=== PATIENT | male | born 1935 | race Caucasian/White ===

== ENCOUNTER → 2016-12-12 | Outpatient (CLI) | payer OTHER ==
--- NOTE | 2016-12-12 17:57 | DX ---
Right ankle, 3 views. HISTORY: Ankle pain x1 month. FINDINGS: Underneath the lateral malleolus, there is a 10 mm bone fragment compatible with prior avul olga lidia injury. There is also a bone fragment underneath the medial malleolus measuring 5 mm in size whi ch also appears remote in age. The mortise is intact, without acute fracture or joint effusion identi fied. Extensive diabetic vascular calcifications involve the posterior tibial and dorsalis pedis shani rosy. IMPRESSION: 1. Sequela prior ankle trauma. 2. Diabetic atherosclerosis.
== END ==
LOC: FIMAGING 11:12
PROVIDERS: ATTEND Surgery
DX: M25.571 Pain in right ankle and joints of right foot (principal); S99.911S Unspecified injury of right ankle, sequela; E11.59 Type 2 diabetes mellitus with other circulatory complications

== ENCOUNTER → 2016-12-17 | Outpatient (CLI) | payer OTHER | LOC: BHFA 13:00 | PROVIDERS: ATTEND Internal Medicine Cardiovascular Disease | DX: I73.9 Peripheral vascular disease, unspecified (principal) ==

== ENCOUNTER → 2017-01-24 | Outpatient (CLI) | payer OTHER ==
[~2017-01-24] MED LIST: IOPAMIDOL (ISOVUE-370) 150 ML BTL IV ONE
[2017-01-24 09:39] LABS: CREATININE 1.1 mg/dL (0.7-1.3); GLOMERULAR FILTRATION RATE > 60
== END ==
LOC: FIMAGING 09:02
PROVIDERS: ATTEND Surgery
DX: I73.9 Peripheral vascular disease, unspecified (principal); I77.4 Celiac artery compression syndrome; I70.1 Atherosclerosis of renal artery; I77.1 Stricture of artery
CPT/HCPCS: 75635; Q9967

== ENCOUNTER → 2017-02-06 | Outpatient (CLI) | payer OTHER | LOC: BHFA 10:00 | PROVIDERS: ATTEND Internal Medicine Cardiovascular Disease | DX: I35.1 Nonrheumatic aortic (valve) insufficiency (principal); I10 Essential (primary) hypertension; I25.10 Atherosclerotic heart disease of native coronary artery without angina pectoris ==

== ENCOUNTER 2017-05-10 09:49 | Day surgery (SDC) | payer OTHER ==
[2017-05-10] MEDS ORDERED: ASPIRIN EC 325 MG TAB PO ONE (09:53)
[2017-05-10] MEDS ORDERED: FAMOTIDINE 20 MG TAB PO ONE (09:53)
[2017-05-10] MEDS ORDERED: DIAZEPAM 5 MG TAB PO ONE (09:53)
[2017-05-10] MEDS ORDERED: diphenhydrAMINE 25 MG CAP PO ONE (09:53)
[2017-05-10] MEDS ORDERED: NS 1,000 ML IV ONE (09:53)
[2017-05-10] MEDS ORDERED: LIDOCAINE 1% 300 MG/30 ML SDV ONE (10:22)
[2017-05-10] MEDS ORDERED: IOPAMIDOL (ISOVUE-370) 150 ML BTL IV ONE (10:22)
[2017-05-10] MEDS ORDERED: MIDAZOLAM 2 MG/2 ML VIAL ONE (10:22)
[2017-05-10] MEDS ORDERED: fentaNYL 100 MCG/2 ML INJ ONE (10:22)
[2017-05-10] MEDS ORDERED: IOPAMIDOL (ISOVUE-300) 150 ML BTL ONE (10:23)
[2017-05-10] MEDS ORDERED: HEPARIN 10,000 UNIT/10 ML MDV ONE (10:27)
[2017-05-10 10:37] LABS: % IMMATURE GRANULYOCYTES 0.2 % (0.0-1.1); ABSOLUTE IMMATURE GRANULOCYTES 0.01 10^3/uL (0.00-0.10); ADD DIFF? NO; ADD MORPH? NO; ADD SCAN? NO; ATYPICAL LYMPHOCYTE FLAG 0 (0-99); FRAGMENT RBC FLAG 0 (0-99); HEMATOCRIT 40.5 % (40.0-51.0); HEMOGLOBIN 13.5 g/dL (13.7-17.5); LEFT SHIFT FLG 0 (0-99); LIPEMIA HEMOLYSIS FLAG 80 (0-99); MEAN CELL HEMOGLOBIN 33.7 pg (27.9-34.1); MEAN CELL HEMOGLOBIN CONCENTR. 33.3 g/dL (32.4-36.7); MEAN PLATELET VOLUME 10.6 fL (8.7-11.7); PLATELET CLUMPS FLAG 0 (0-99); PLATELET COUNT 134 10^3/uL (150-400); RED BLOOD CELL COUNT 4.01 10^6/uL (4.40-6.38); RED CELL DISTRIBUTION WIDTH 14.4 % (11.5-15.2)
[2017-05-10 10:44] LABS: INR 2.39 (0.83-1.16); PROTIME(PATIENT) 26.3 SEC (12.0-15.0)
[2017-05-10 11:13] LABS: ANION GAP 11 mEq/L (8-16); CARBON DIOXIDE 23 mEq/l (22-31); CHLORIDE 108 mEq/L (97-110); CHOLESTEROL 129 mg/dL (140-220); CHOLESTEROL/HDL RATIO 2.58 RATIO (1.00-4.97); GLOMERULAR FILTRATION RATE > 60; GLUCOSE 80 mg/dL (70-100); HIGH DENSITY LIPOPROTEIN 50 mg/dL (40-65); LDL/HDL RATIO 1.32 RATIO (1.00-3.64); LOW DENSITY LIPOPROTEIN 66 mg/dL (80-100); MAGNESIUM 1.7 mg/dL (1.6-2.3); NON-HIGH DENSITY LIPOPROTEIN 79 mg/dL (90-129); SODIUM 142 mEq/L (134-144); TRIGLYCERIDE 66 mg/dL (40-150); VERY LOW DENSITY LIPOPROTEINS 13 mg/dL (8-25)
== END 2017-05-10 11:33 | disposition home or self-care (01) ==
LOC: FCATH 09:49
PROVIDERS: ATTEND Internal Medicine Cardiovascular Disease
DX: R06.00 Dyspnea, unspecified (principal); Z53.09 Procedure and treatment not carried out because of other contraindication; I35.9 Nonrheumatic aortic valve disorder, unspecified; I48.2 Chronic atrial fibrillation; I25.10 Atherosclerotic heart disease of native coronary artery without angina pectoris; I27.2 Other secondary pulmonary hypertension; I10 Essential (primary) hypertension; I73.9 Peripheral vascular disease, unspecified; E78.5 Hyperlipidemia, unspecified; F01.50 Vascular dementia, unspecified severity, without behavioral disturbance, psychotic disturbance, mood disturbance, and anxiety; Z95.810 Presence of automatic (implantable) cardiac defibrillator; Z95.0 Presence of cardiac pacemaker; Z86.73 Personal history of transient ischemic attack (TIA), and cerebral infarction without residual deficits; Z79.899 Other long term (current) drug therapy
CPT/HCPCS: J1644; J2250; J3010; Q9967

== ENCOUNTER 2017-05-13 11:29 | Observation (INO) | payer OTHER ==
[2017-05-13] MEDS ORDERED: ASPIRIN EC 325 MG TAB PO ONE ×2 (11:33→12:06)
[2017-05-13] MEDS ORDERED: NS 1,000 ML IV ONE (11:33)
[2017-05-13] MEDS ORDERED: FAMOTIDINE 20 MG TAB PO ONE (11:33)
[2017-05-13] MEDS ORDERED: DIAZEPAM 5 MG TAB PO ONE (11:33)
[2017-05-13] MEDS ORDERED: diphenhydrAMINE 25 MG CAP PO ONE ×2 (11:33→12:05)
--- NOTE | 2017-05-13 11:55 | CPEKG ---
Heart Rate: 61 RR Interval: 984 QRSD Interval: 162 QT Interval: 528 QTC Interval: 532 QRS Tyrone: -51 T Wave Tyrone: 123 EKG Severity - ABNORMAL ECG - EKG Impression: ATRIAL FIBRILLATION, V-RATE 45-80 EKG Impression: LEFT BUNDLE BRANCH BLOCK Electronically Signed By: Lg Stringer 13-May-2017 17:38:06
[2017-05-13] MEDS ORDERED: FAMOTIDINE 20 MG TAB ONE (12:06)
[2017-05-13] MEDS ORDERED: DIAZEPAM 5 MG TAB ONE (12:06)
[2017-05-13 12:19] LABS: % IMMATURE GRANULYOCYTES 0.6 % (0.0-1.1); ABSOLUTE IMMATURE GRANULOCYTES 0.02 10^3/uL (0.00-0.10); ADD DIFF? NO; ADD MORPH? NO; ADD SCAN? NO; ATYPICAL LYMPHOCYTE FLAG 0 (0-99); FRAGMENT RBC FLAG 0 (0-99); HEMATOCRIT 38.9 % (40.0-51.0); HEMOGLOBIN 12.9 g/dL (13.7-17.5); LEFT SHIFT FLG 0 (0-99); LIPEMIA HEMOLYSIS FLAG 80 (0-99); MEAN CELL HEMOGLOBIN 33.2 pg (27.9-34.1); MEAN CELL HEMOGLOBIN CONCENTR. 33.2 g/dL (32.4-36.7); MEAN CELL VOLUME 100.3 fL (81.5-99.8); MEAN PLATELET VOLUME 11.1 fL (8.7-11.7); PLATELET CLUMPS FLAG 0 (0-99); PLATELET COUNT 135 10^3/uL (150-400); RED BLOOD CELL COUNT 3.88 10^6/uL (4.40-6.38); RED CELL DISTRIBUTION WIDTH 14.3 % (11.5-15.2)
[2017-05-13 12:28] LABS: INR 1.54 (0.83-1.16); PROTIME(PATIENT) 18.5 SEC (12.0-15.0)
[2017-05-13 12:33] LABS: ANION GAP 12 mEq/L (8-16); CALCIUM 9.6 mg/dL (8.5-10.4); CARBON DIOXIDE 21 mEq/l (22-31); CHLORIDE 108 mEq/L (97-110); CHOLESTEROL 115 mg/dL (140-220); CREATININE 0.8 mg/dL (0.7-1.3); GLOMERULAR FILTRATION RATE > 60; GLUCOSE 78 mg/dL (70-100); HIGH DENSITY LIPOPROTEIN 46 mg/dL (40-65); LDL/HDL RATIO 1.26 RATIO (1.00-3.64); LOW DENSITY LIPOPROTEIN 58 mg/dL (80-100); MAGNESIUM 1.7 mg/dL (1.6-2.3); NON-HIGH DENSITY LIPOPROTEIN 69 mg/dL (90-129); POTASSIUM 3.9 mEq/L (3.5-5.2); SODIUM 141 mEq/L (134-144); TRIGLYCERIDE 55 mg/dL (40-150); VERY LOW DENSITY LIPOPROTEINS 11 mg/dL (8-25)
[2017-05-13] MEDS ORDERED: LIDOCAINE 1% 300 MG/30 ML SDV ONE (12:52)
[2017-05-13] MEDS ORDERED: fentaNYL 100 MCG/2 ML INJ ONE (12:52)
[2017-05-13] MEDS ORDERED: MIDAZOLAM 2 MG/2 ML VIAL ONE (12:52)
[2017-05-13] MEDS ORDERED: IOPAMIDOL (ISOVUE-300) 150 ML BTL ONE ×2 (12:53→14:17)
[2017-05-13] MEDS ORDERED: LABETALOL HCL 5 MG/ML 20 ML MDV ONE (14:00)
[2017-05-13] MEDS ORDERED: NITROGLYCERIN 0.4 MG BTL SL PRN (16:01)
[2017-05-13] MEDS ORDERED: ATROPINE SULFATE 1 MG/10 ML SYR IVP PRN (16:01)
[2017-05-13] MEDS ORDERED: HYDROCODONE/APAP 5/325 TAB PO PRN (16:03)
[2017-05-13] MEDS ORDERED: ATORVASTATIN CALCIUM 40 MG TAB PO SCH (18:00)
[2017-05-13] MEDS ORDERED: METOPROLOL TARTRATE 25 MG TAB PO SCH (18:00)
[2017-05-13] MEDS ORDERED: NON-FORMULARY NEW DRUG (Atorvastatin Calcium [Lipitor 80 Mg] 80 MG) PO SCH (18:00)
[2017-05-13] MEDS: FAMOTIDINE 20 MG TAB PO SCH (20:17)
[2017-05-13] MEDS ORDERED: NON-FORMULARY NEW DRUG (Ranitidine Hcl [Ranitidine Hcl 150 Mg] 150 MG) PO SCH (21:00)
[2017-05-13] MEDS ORDERED: DONEPEZIL HCL 5 MG TAB PO SCH (21:00)
[2017-05-13] MEDS ORDERED: ZOLPIDEM TARTRATE 5 MG TAB PO PRN (21:06)
--- NOTE | 2017-05-13 23:30 | CPIP ---
[f rep st] INVASIVE CARDIAC PROCEDURE DATE OF PROCEDURE: 05/13/2017 PROCEDURES PERFORMED: 1. Right heart catheterization. 2. Left heart catheterization. 3. Abdominal aortography with right lower extremity angiography via runoff. 4. Left lower extremity angiography via ipsilateral approach with catheter placed in the left commo n femoral artery. INDICATIONS: 1. Dyspnea on exertion. 2. Moderate aortic stenosis by echocardiography. 3. Known coronary artery disease with a chronic total occlusion of his right coronary artery. 4. Underlying lung disease. 5. Claudication. ACCESS: Patient was prepped and draped in sterile fashion. 1% lidocaine was used to anesthetize th e left inguinal region. A 6-Latvian introducer sheath was placed selectively into the left common fe moral artery via modified Seldinger technique. A 7-Latvian introducer sheath was placed selectively into the left common femoral vein via modified Seldinger technique. RIGHT HEART CATHETERIZATION: The right heart catheter was advanced in the right atrium and pressure obtained. The right atrial pressure was 16 mmHg. The catheter was then advanced into the right ve ntricle and pressure obtained. The right ventricular pressure was 73/10 mmHg. The catheter was the n advanced in the pulmonary artery position and pressure obtained. The pulmonary artery pressure wa s 73/28 mmHg with a mean pulmonary artery pressure of 45 mmHg. The catheter was then advanced in th e wedge position and pressure obtained. The pulmonary capillary wedge pressure was 23 mmHg. The pu lmonary artery saturation was 69%. The femoral artery saturation was 96%. Cardiac output was 4.9 L /minute. Cardiac index 2.6. LEFT VENTRICULOGRAPHY AND CALCULATION OF VALVE AREA: A 6-Latvian JR4 was advanced to the proximal po rtion of the aorta and was used to direct a straight Glidewire across the aortic valve. The right c oronary artery catheter was then advanced into the left ventricle and the straight Glidewire was wit hdrawn. A standard 0.035 wire was then advanced into the left ventricle. The right heart catheter was withdrawn and a Yong pigtail catheter was then advanced and placed into the left ventricle. Images were obtained via power injection through the [facility] system. The left ventricle appeared to be mildly dilated in size with preserved left ventricular systolic function. The estimated ejectio n fraction was 55%. The wjwm-[id number]-[id number] gradient across the aortic valve was 17.19 mmHg. The mean aor tic gradient was 15.52 mmHg. The valve area calculated out at 1.7 cm. CORONARY ANGIOGRAPHY: A 6-Latvian JL4 was advanced to the left main coronary artery and images obtai erik. The left main coronary artery bifurcated into an LAD and circumflex coronary arteries. The le ft main coronary artery was relatively short but appeared normal. The left anterior descending shaun nary artery gave rise to 1 prominent diagonal branch. The left anterior descending coronary artery had mild diffuse disease in the proximal mid segments. There was no stenosis greater than 20%. The first diagonal artery was a moderate-sized vessel. The first diagonal artery had a proximal 20% st enosis present. Circumflex coronary artery was a large vessel, was nondominant. Circumflex coronar y artery was previously stented in the proximal mid segments. The previously placed stents were wid sabi patent with no evidence of in-stent restenosis. The second OM artery had a proximal 40%-60% guille nosis present. A 6-Latvian JR4 was advanced to the right coronary artery and images obtained. The r ight coronary artery was dominant. The right coronary artery was 100% occluded in the midvessel. T he distal right coronary artery was being fed by [id number] collaterals. ABDOMINAL AORTOGRAPHY WITH RUNOFF: A 6-Latvian pigtail catheter was advanced into the distal abdomin al aorta and position verified by angiography. Images were obtained via power injection through the [facility] system. 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 The distal abdominal aorta then bifurcated into the left and right common iliac arteries. The left and right common iliac art eries appeared free of any significant disease. The right common iliac artery then bifurcated into the right internal iliac artery and right external iliac artery. The right internal iliac artery wa s proximally ectatic. The right external iliac artery appeared free of any significant disease. Th e right external iliac artery then turned into the right common femoral artery. The right common fe moral artery had a 20% stenosis and then became aneurysmally dilated. In the aneurysmally dilated s ection, the vessel bifurcated into the profunda femoral artery and superficial femoral artery. The profunda femoral artery appeared free of any significant disease. The superficial femoral artery clifton d proximal sequential 20%-30% stenosis present. The superficial femoral artery then continued to th e mid vessel where it was 100% occluded, at which point, a fem-pop bypass graft could be seen, which was widely patent. Below the knee, images were suboptimal but the patient appeared to have 2-vesse l runoff. LEFT LOWER EXTREMITY ANGIOGRAPHY VIA IPSILATERAL APPROACH WITH CATHETER PLACED IN THE LEFT COMMON FE MORAL ARTERY: The left external iliac artery appeared free of any significant disease. The left ex ternal iliac artery then turned into the left common femoral artery. The left common femoral artery had heavy calcific disease present approaching 50%-70% in severity. The left common femoral artery then bifurcated into the superficial femoral artery and the profunda femoral artery. The profunda femoral artery appeared free of any significant disease. The superficial femoral artery was 100% oc cluded in the mid vessel. A fem-distal graft could be seen. The fem-distal graft was widely patent and tied into the posterior tibial artery. The posterior tibial artery was occluded distal to the graft but did retrograde fill from the graft. COMPLICATIONS: None. CONCLUSIONS: 1. Severe pulmonary hypertension with a mean pulmonary artery pressure of 45 mmHg and a transpulmon rowan gradient of 22 mmHg. 2. Qxda-nc-meuayuez aortic stenosis with a valve area of 1.7 cm and a mean gradient of 15.5 mmHg. 3. One-vessel coronary artery disease involving the right coronary artery. The right coronary shani ry was totally occluded but was noted to be occluded previously. The left anterior descending coron rowan artery and circumflex coronary artery appeared free of any significant disease. 4. Patent fem-pop bypass graft on the right. 5. Patent fem-distal bypass graft on the left. 6. 50%-60% stenosis of the left common femoral artery. 7. Plan is for pulmonary evaluation and medical management. /[id number]/MODL
[2017-05-14] MEDS ORDERED: METOPROLOL TARTRATE 25 MG TAB PO SCH (06:00)
[2017-05-14 07:14] VITALS: BP 182/78; PULSE 96; RESP 18; TEMP 97.8; O2SAT 89
[2017-05-14] MEDS: FAMOTIDINE 20 MG TAB PO SCH (08:32)
[2017-05-14] MEDS ORDERED: CLOPIDOGREL BISULFATE 75 MG TAB PO SCH (09:00)
[2017-05-14] MEDS ORDERED: FERROUS SULFATE 140 MG TAB.ER PO SCH (09:00)
--- NOTE | 2017-05-15 04:22 | GDS ---
[f rep st] DISCHARGE SUMMARY ADMIT DIAGNOSES: 1. Peripheral vascular disease. 2. Claudication. 3. Moderate aortic stenosis by echocardiogram. 4. Coronary artery disease with total right coronary artery occlusion. 5. Underlying lung disease. 6. Dyspnea on exertion. DISCHARGE DIAGNOSES: 1. Peripheral vascular disease. 2. Coronary artery disease. 3. Underlying lung disease. 4. Moderate aortic stenosis. 5. Claudication. 6. Pulmonary hypertension. HOSPITAL COURSE: This gentleman is well known to Dr. Elroy Ramirez who has followed him closely with his peripheral vascular disease over the years. He had been experiencing claudication, especially o f his left leg, along with shortness of breath. Dr. Ramirez recommended a right and left heart cath to evaluate his coronary disease and valvular disease, in addition to abdominal aortography and runo ff, along with left lower extremity angiography to further evaluate the extent of his coronary and v alve disease and his peripheral vascular disease. He was in agreement with this plan due to the inc reasing shortness of breath and severity of his leg discomfort. He was taken to the cardiac cath la b by Dr. Elroy Ramirez. The procedures were done with no complications and he was taken to PCU for ov ernight observation. He did have a left femoral bleed which did respond to FemoStop pressure. He h as no hematoma or ecchymosis to that area. He has been up in the room to the bathroom with no probl ems. At this time, he currently is stable for discharge. ALLERGIES: He has no known allergies. MEDICATIONS: He will go home on Plavix 75 mg daily, ranitidine 150 mg twice daily, metoprolol tartr ate 12.5 mg daily at 6 p.m., metoprolol tartrate 25 mg daily at 6 a.m., ferrous sulfate 140 mg daily , warfarin 2.5 mg Saturday, Saturday, Saturday, Saturday, , and Saturday, 5 mg Saturday, atorvasta tin 80 mg daily, hydrocodone 2 tabs every 4 hours as needed for pain, Aricept 10 mg at bedtime. EXAMINATION: VITAL SIGNS: On day of discharge, blood pressure 158/78, heart rate 104 with atrial f ibrillation, oxygen saturation 94%, temperature 36.5. EKG showed premature ventricular contractions with atrial fibrillation. HEART: Rate irregular with 3+ systolic murmur. LUNG SOUNDS: Clear to auscultation. No wheezes, rales, or rhonchi. EXTREMITIES: Peripheral pulses are 1+ on the right a nd 1+ on the left. INTERVENTIONAL CARDIAC PROCEDURE: Right and left heart catheterization, coronary angiogram, lower l eft extremity angiography. There were no complications. CONCLUSIONS: 1. Severe pulmonary hypertension with a mean pulmonary artery pressure of 45 and transpulmonary gra dient of 22. 2. Mild to moderate aortic stenosis with a valve area of 1.7 cm and a mean gradient of 15.5. 3. One-vessel coronary artery disease involving the right coronary artery which was totally occlude d, but was noted to be occluded previously. Left anterior descending coronary artery and circumflex coronary appeared free of significant disease. 4. Patent fem-pop bypass graft on the right. 5. Patent fem distal bypass graft on the left. 6. 50% to 60% stenosis of the left common femoral artery. 7. Plan is for pulmonary evaluation and medical management. DISCHARGE PLAN: 1. He will follow up with Dr. Ramirez in 1 week. He will see JUAN DIEGO Saunders, at that visit. 2. Groin site instructions and precautions were reviewed and written information was given to him. No heavy lifting, pushing, pulling greater than 10 pounds for 1 week. Okay to use stairs. Should groin site bleed, hold firm pressure and go to the emergency room. Dr. Ramirez would like to refer the patient to Pulmonology to see Priyank Sharma MD, who is a pulmonary h ypertension specialist. He will visit with him further about this at his next appointment. At this time, he currently is stable for discharge. /[id number]/MODL
== END 2017-05-14 12:09 | disposition home or self-care (01) ==
LOC: FCATH 11:29 → F2W 15:30
PROVIDERS: ADMIT Internal Medicine Cardiovascular Disease; ATTEND Internal Medicine Cardiovascular Disease
PROC: B40FYZZ Plain Radiography of Right Lower Extremity Arteries using Other Contrast (ICD-10-PCS; principal; 2017-05-13)
PROC: 4A023N8 Measurement of Cardiac Sampling and Pressure, Bilateral, Percutaneous Approach (ICD-10-PCS; principal; 2017-05-13)
PROC: B400YZZ Plain Radiography of Abdominal Aorta using Other Contrast (ICD-10-PCS; principal; 2017-05-13)
PROC: B40GYZZ Plain Radiography of Left Lower Extremity Arteries using Other Contrast (ICD-10-PCS; principal; 2017-05-13)
DX: I73.9 Peripheral vascular disease, unspecified (principal); I25.10 Atherosclerotic heart disease of native coronary artery without angina pectoris; I35.0 Nonrheumatic aortic (valve) stenosis; J98.4 Other disorders of lung; I27.2 Other secondary pulmonary hypertension
CPT/HCPCS: 75625; 75716; 93005; 93460; C1769; J1644; J2250; J3010; J3490; Q9967

== ENCOUNTER → 2017-07-02 | Outpatient (CLI) | payer OTHER | LOC: FIMAGING 08:43 | PROVIDERS: ATTEND Internal Medicine Critical Care Medicine | DX: I51.7 Cardiomegaly (principal); J90 Pleural effusion, not elsewhere classified; I25.10 Atherosclerotic heart disease of native coronary artery without angina pectoris; R18.8 Other ascites; I27.2 Other secondary pulmonary hypertension ==

== ENCOUNTER 2017-07-31 17:29 | Inpatient (IN) | payer OTHER ==
--- NOTE | 2017-07-31 17:43 | CPEKG ---
Heart Rate: 60 RR Interval: 1000 QRSD Interval: 164 QT Interval: 532 QTC Interval: 532 QRS [place]se[place]: -43 T Wave [place]se[place]: 130 EKG Severity - ABNORMAL ECG - EKG Impression: ATRIAL FIBRILLATION, V-RATE 49-71 EKG Impression: LEFT BUNDLE BRANCH BLOCK Electronically Signed By: Feliciano Ramirez 31-Jul-2017 17:48:09
--- NOTE | 2017-07-31 17:43 | EDPHY ---
H & P Source: Patient Exam Limitations: No limitations - Personal History Tetanus Vaccine Date: WITHIN 10 YRS - Medical/Surgical History Hx Asthma: No Hx Chronic Respiratory Disease: No Hx Diabetes: No Hx Cardiac Disease: Yes Hx Renal Disease: No Hx Cirrhosis: No Hx Alcoholism: No Hx HIV/AIDS: No Hx Splenectomy or Spleen Trauma: No Other PMH: HTN, PPM, Afib, Hyperlipids, bilateral endarectomies, - Social History Smoking Status: Former smoker Time Seen by Provider: 07/31/17 17:34 HPI/ROS: CHIEF COMPLAINT: Syncope, head injury, anticoagulated HISTORY OF PRESENT ILLNESS: The patient has a history of atrial fibrillation and is anticoagulated. He presents to the ED after he had a witnessed syncopal episode at home. He reportedly was standing and loss consciousness. He fell forward striking his head. There was no seizure activity. The patient complains of a mild frontal headache and generalized neck discomfort. He denies any peripheral numbness or weakness. The patient has a history of peripheral vascular disease. He recently underwent an angiogram which demonstrated stable coronary artery disease. The patient denies any history of recent illness, fever, cough or congestion. REVIEW OF SYSTEMS: A comprehensive 10 point review of systems is otherwise negative aside from elements mentioned in the history of present illness. (Feliciano Ramirez) - Physical Exam Exam: General Appearance: Alert, no distress Head: 3 cm linear laceration noted over left eyebrow all, small overlying hematoma Eyes: Pupils equal, round, reactive ENT, Mouth: No hemotympanum, no oral trauma Neck: In cervical spine collar, no palpable step-off, generalized tenderness throughout the cervical spine both midline and paraspinal Respiratory: No chest wall tender, subcutaneous air, lungs clear bilaterally Cardiovascular: Regular rate and rhythm Abdomen: Abdomen is soft and nontender, pelvis stable Skin: No lacerations, No abrasion Back: No midline T/L/S pain Extremities: Nontender, full range of motion Neurological: A&Ox3, normal motor function, normal sensory exam] (Feliciano Ramirez) Constitutional: Initial Vital Signs Temperature (C) 36.9 C 07/31/17 17:42 Heart Rate 63 07/31/17 17:42 Respiratory Rate 16 07/31/17 17:42 Blood Pressure 182/84 H 07/31/17 17:42 O2 Sat (%) 100 07/31/17 17:42 O2 Delivery Mode Room Air Allergies/Adverse Reactions: No Known Allergies Allergy (Verified 07/31/17 17:45) Home Medications: Medication Instructions Recorded Clopidogrel Bisulfate [Plavix (*)] 75 mg PO DAILY 06/25/13 Ranitidine HCl [Ranitidine HCl 150 150 mg PO BID 06/25/13 mg] Atorvastatin Calcium [Lipitor 80 80 mg PO DAILY@18 11/05/16 mg] Ferrous Sulfate [Slow Fe 140 MG 140 mg PO DAILY 11/05/16 (*)] Warfarin Sodium [Coumadin 2.5MG 2.5 mg PO SUMOTUWETHFR@16 11/05/16 (*)] Hydrocodone/APAP 5/325 [Madera 2 tab PO Q4HRS PRN #20 tab 11/10/16 5/325 (*)] Metoprolol Tartrate [Lopressor 25 25 mg PO DAILY@06 #0 tab 11/10/16 mg (*)] Donepezil HCl [Aricept 5 MG (*)] 10 mg PO HS 05/10/17 Warfarin Sodium [Coumadin 5MG (*)] 5 mg PO SA@16 05/10/17 Metoprolol Tartrate [Lopressor 25 12.5 mg PO DAILY@18 #0 tab 05/14/17 mg (*)] Medical Decision Making - Diagnostics EKG Interpretation: EKG: Complete interpretation has been separately recorded in the [facility] archive. Summary impression: AFib, left bundle branch block, rate 60 (Feliciano Ramirez) Imaging Results: Imaging Impressions Cervical Spine CT 07/31/17 17:34 Impression: Head CT: 1. Left frontal scalp hematoma. 2. Comminuted fracture of the nasal bone. 3. No acute intracranial abnormality. 4. Chronic volume loss, diffuse small vessel ischemic changes and focal encephalomalacia in the right parietal and left temporal lobes, similar to prior exam. Cervical Spine: 1. Acute, nondisplaced, posteriorly angulated fracture of the base the dens, likely type II. This results in approximately 2 mm subluxation of the right C1 facet relative to the C2 facet. 2. Small epidural hematoma at the level of C1. 3. Advanced multilevel degenerative changes of the cervical spine. 4. Cannot exclude ligament, spinal cord and/or vascular abnormalities on this exam. Dr. Park discussed these findings by telephone with Feliciano Ramirez at 2016 18:35. Head CT 07/31/17 17:34 Impression: Head CT: 1. Left frontal scalp hematoma. 2. Comminuted fracture of the nasal bone. 3. No acute intracranial abnormality. 4. Chronic volume loss, diffuse small vessel ischemic changes and focal encephalomalacia in the right parietal and left temporal lobes, similar to prior exam. Cervical Spine: 1. Acute, nondisplaced, posteriorly angulated fracture of the base the dens, likely type II. This results in approximately 2 mm subluxation of the right C1 facet relative to the C2 facet. 2. Small epidural hematoma at the level of C1. 3. Advanced multilevel degenerative changes of the cervical spine. 4. Cannot exclude ligament, spinal cord and/or vascular abnormalities on this exam. Dr. Park discussed these findings by telephone with Feliciano Ramirez at 2016 18:35. Procedures: Procedure: Laceration repair with tissue adhesive I was asked by Dr Ramirez to perform wound closure. Verbal consent was obtained from the patient. The 2.5 cm laceration on the frontal region was scrubbed and explored to its base with a gloved finger. No foreign body seen, no foreign bodies palpated. There were no deep structures involved. The wound was repaired with tissue adhesive. The procedure was performed by myself. Patient has been informed that scarring will occur, although every effort has been made to minimize this. (Shania Lacey) ED Course/Re-evaluation: The patient presents to the ED after an episode of syncope. He presents to the ED with head trauma and primary complaints of neck pain. The patient was noted to be neurologically intact upon arrival. The patient was taken for a stat CT scan of his head and cervical spine. There is no evidence of intracranial hemorrhage. The patient does have a fracture of the dens. Consultation was made with Dr. Jain from Neurosurgery who evaluated the patient. The patient will be admitted by Dr. Shanique Vivas from trauma service. The patient's pacemaker call center representative has been requested to come interrogate the pacemaker. The patient was examined by myself several times throughout his stay in the emergency department. He continued to be neurologically intact. The consultation was made with Dr. Klever Leung from the hospitalist service. The patient's head laceration was repaired with Dermabond by the physician orthopedic physician assistant under my supervision. The patient was placed on a monitor throughout his stay in the emergency department without evidence of significant unstable arrhythmia. The patient's pacemaker was interrogated in the emergency department. The pacemaker rep tells me there is no shock given or significant arrhythmia noted. (Feliciano Ramirez) Differential Diagnosis: Differential diagnosis considered includes intracranial hemorrhage, cervical spine fracture, arrhythmia, anemia, spinal cord injury (Feliciano Ramirez) Critical Care Time: Critical care time exclusive of procedures and exclusive of the PA's time was 45 minutes, performed by myself, Feliciano Ramirez MD. The patient presents to the ED with acute syncope characterized by loss of consciousness resulted in a fall and head trauma. The patient is noted to have a C2 fracture on his evaluation. The patient will require admission to the intensive care unit for close observation. Consultation was made with General surgery, Neurosurgery and the Hospital Medicine service. The patient will be admitted to the step- down unit in Intensive Care this evening. (Feliciano Ramirez) - Data Points Laboratory Results: Laboratory Results 07/31/17 17:30 07/31/17 17:30 07/31/17 07/31/17 07/31/17 17:30 17:30 17:30 WBC RBC Hgb Hct MCV MCH MCHC RDW Plt Count MPV Neut % (Auto) Lymph % (Auto) Pope % (Auto) Eos % (Auto) Baso % (Auto) Nucleat RBC Rel Count Absolute Neuts (auto) Absolute Lymphs (auto) Absolute Monos (auto) Absolute Eos (auto) Absolute Basos (auto) Absolute Nucleated RBC Immature Gran % Immature Gran # PT 36.8 SEC H SEC (12.0-15.0) INR 3.64 H (0.83-1.16) Sodium 143 mEq/L mEq/L (134-144) Potassium 3.8 mEq/L mEq/L (3.5-5.2) Chloride 105 mEq/L mEq/L (97-110) Carbon Dioxide 24 mEq/l mEq/l (22-31) Anion Gap 14 mEq/L mEq/L (8-16) BUN 30 mg/dL H mg/dL (7-23) Creatinine 1.0 mg/dL mg/dL (0.7-1.3) Estimated GFR > 60 Glucose 80 mg/dL mg/dL (70-100) Calcium 9.4 mg/dL mg/dL (8.5-10.4) Troponin I 0.055 ng/mL H ng/mL (0.000-0.034) 07/31/17 17:30 WBC 5.18 10^3/uL 10^3/uL (3.80-9.50) RBC 3.80 10^6/uL L 10^6/uL (4.40-6.38) Hgb 12.8 g/dL L g/dL (13.7-17.5) Hct 38.6 % L % (40.0-51.0) MCV 101.6 fL H fL (81.5-99.8) MCH 33.7 pg pg (27.9-34.1) MCHC 33.2 g/dL g/dL (32.4-36.7) RDW 14.5 % % (11.5-15.2) Plt Count 137 10^3/uL L 10^3/uL (150-400) MPV 10.8 fL fL (8.7-11.7) Neut % (Auto) 36.7 % L % (39.3-74.2) Lymph % (Auto) 46.7 % H % (15.0-45.0) Pope % (Auto) 12.7 % % (4.5-13.0) Eos % (Auto) 2.9 % % (0.6-7.6) Baso % (Auto) 0.6 % % (0.3-1.7) Nucleat RBC Rel Count 0.0 % % (0.0-0.2) Absolute Neuts (auto) 1.90 10^3/uL 10^3/uL (1.70-6.50) Absolute Lymphs (auto) 2.42 10^3/uL 10^3/uL (1.00-3.00) Absolute Monos (auto) 0.66 10^3/uL 10^3/uL (0.30-0.80) Absolute Eos (auto) 0.15 10^3/uL 10^3/uL (0.03-0.40) Absolute Basos (auto) 0.03 10^3/uL 10^3/uL (0.02-0.10) Absolute Nucleated RBC 0.00 10^3/uL 10^3/uL (0-0.01) Immature Gran % 0.4 % % (0.0-1.1) Immature Gran # 0.02 10^3/uL 10^3/uL (0.00-0.10) PT INR Sodium Potassium Chloride Carbon Dioxide Anion Gap BUN Creatinine Estimated GFR Glucose Calcium Troponin I Departure - Departure Disposition: [facility] Inpatient Acute Clinical Impression: Syncope, Closed C2 fracture, Forehead laceration, Atrial fibrillation Condition: Fair
[2017-07-31 17:56] LABS: % IMMATURE GRANULYOCYTES 0.4 % (0.0-1.1); ABSOLUTE IMMATURE GRANULOCYTES 0.02 10^3/uL (0.00-0.10); ADD DIFF? NO; ADD MORPH? NO; ADD SCAN? NO; ATYPICAL LYMPHOCYTE FLAG 30 (0-99); FRAGMENT RBC FLAG 0 (0-99); HEMATOCRIT 38.6 % (40.0-51.0); HEMOGLOBIN 12.8 g/dL (13.7-17.5); LEFT SHIFT FLG 0 (0-99); LIPEMIA HEMOLYSIS FLAG 80 (0-99); MEAN CELL HEMOGLOBIN 33.7 pg (27.9-34.1); MEAN CELL HEMOGLOBIN CONCENTR. 33.2 g/dL (32.4-36.7); MEAN CELL VOLUME 101.6 fL (81.5-99.8); MEAN PLATELET VOLUME 10.8 fL (8.7-11.7); PLATELET CLUMPS FLAG 0 (0-99); PLATELET COUNT 137 10^3/uL (150-400); RED CELL DISTRIBUTION WIDTH 14.5 % (11.5-15.2)
[2017-07-31 18:09] LABS: INR 3.64 (0.83-1.16); PROTIME(PATIENT) 36.8 SEC (12.0-15.0)
[2017-07-31 18:16] LABS: ANION GAP 14 mEq/L (8-16); CALCIUM 9.4 mg/dL (8.5-10.4); CARBON DIOXIDE 24 mEq/l (22-31); CHLORIDE 105 mEq/L (97-110); GLOMERULAR FILTRATION RATE > 60; GLUCOSE 80 mg/dL (70-100); POTASSIUM 3.8 mEq/L (3.5-5.2); SODIUM 143 mEq/L (134-144)
[2017-07-31] MEDS ORDERED: NALOXONE HCL 0.4 MG/ML INJ IVP PRN (19:56)
[2017-07-31] MEDS ORDERED: ONDANSETRON 4 MG/2 ML VIAL IVP PRN (19:56)
[2017-07-31] MEDS ORDERED: ACETAMINOPHEN 325 MG TAB PO PRN ×2 (19:56→22:48)
[2017-07-31] MEDS ORDERED: SKIN ADHESIVE (DERMABOND) 1 EACH TP ONE (20:13)
[2017-07-31 20:39] LABS: TROPONIN I 0.055 ng/mL (0.000-0.034)
--- NOTE | 2017-07-31 21:18 | GHP ---
[f rep st] HISTORY AND PHYSICAL DATE OF ADMISSION: 07/31/2017 CHIEF COMPLAINT: Fall. HISTORY OF PRESENT ILLNESS: The patient is a pleasant, 81-year-old man on warfarin who had a syncopal episode at home. He was standing and lost consciousness. He struck his head. He complains of a headache. He is otherwise intact. He had a CT scan performed which showed a left frontal scalp hematoma, comminuted fracture of the nasal bone, and an acute nondisplaced fracture at the base of the dens, likely type 2. Small epidural hematoma at C1. PAST MEDICAL HISTORY: Peripheral vascular disease, aortic stenosis, coronary artery disease, underlying lung disease and dyspnea on exertion, pulmonary hypertension. MEDICATIONS: Reviewed. ALLERGIES: No known drug allergies. FAMILY HISTORY: Noncontributory. SOCIAL HISTORY: He has been 57 years. He quit smoking many years ago. PHYSICAL EXAMINATION: GENERAL: Pleasant, well-nourished man sitting on gurney , at bedside. HEENT: Laceration over the frontal area. Hemostasis achieved with direct pressure. Pupils equal, round, reactive to light and accommodation. No otorrhea. No rhinorrhea. He has dentures. No midface instability. C-collar in place. No clavicular or sternal tenderness. LUNGS: Clear to auscultation bilaterally. CARDIAC: Irregular rate. No peripheral edema. ABDOMEN: Bowel sounds present, soft, nontender. NEURO: 5/5 strength upper and lower extremities. SKIN: He has a skin tear on his right forearm. PSYCHIATRIC: Mood and affect normal. RESULTS: Per HPI. IMPRESSION AND PLAN: An 81-year-old man with atrial fibrillation, lung disease , coronary artery disease, presenting after syncope. He has a possible C2 fracture. Dr. Cherry has evaluated this, he will be in a collar. The hospitalist have also been consulted to assist with his multiple medical problems. Trauma will assess him for any additional injuries. If none are noted, trauma will sign off tomorrow. /[id number]/MODL MTDD
[2017-07-31] MEDS: hydrALAZINE 20 MG/ML VIAL IVP PRN (23:50)
[2017-07-31] MEDS: traZODone 50 MG TAB PO SCH (23:50)
[2017-07-31] MEDS: oxyCODONE IR 5 MG TAB PO PRN (23:50)
[2017-08-01 01:14] LABS: COLOR YELLOW; LEUKOCYTE ESTERASE,URINE NEGATIVE (NEGATIVE); NITRITE,URINE NEGATIVE (NEGATIVE)
[2017-08-01 01:41] LABS: MUCUS TRACE /lpf (NONE-1+); WBC,URINE NONE SEEN /hpf (0-3)
--- NOTE | 2017-08-01 05:09 | GCON ---
[f rep st] CONSULTATION DATE OF CONSULTATION: 07/31/2017 REASON FOR CONSULTATION: I was asked by Dr. Vivas to see the patient in regard to his possible synco pe. HISTORY OF PRESENT ILLNESS: This is an 81-year-old man, who presents after collapsing. He tells me that he was sitting down at his table. He does not believe that he lost consciousness, though he is not sure exactly why he fell. He does recall hitting the floor. He did not have any preceding chest pain, shortness of breath, or palpitations. There was no seizure activity reported. He has a compl icated medical history. He had a left and right heart catheterization about 3 months ago. This show ed some severe pulmonary hypertension, no change in his known coronary artery disease with an occlude d RCA, open LAD and left circ. He was sent to see Dr. Sharma with Pulmonology. I am unclear exactly what was done there, though. Notably, he had his pacemaker interrogated earlier today by Cardiology, and they did make some adjustments. He is not sure exactly what those adjustments were. PAST MEDICAL/SURGICAL HISTORY: 1. History of ventricular tachycardia. 2. Pacemaker, as well as ACD. 3. Bilateral femoral-popliteal bypass. 4. Severe pulmonary hypertension. 5. Hypertension. 6. Hyperlipidemia. 7. Coronary artery disease. 8. History of a CVA. 9. Renal artery stenosis. 10. GI bleed due to an AVM. 11. Moderate aortic stenosis. MEDICATIONS: Please see medication reconciliation. ALLERGIES: No known drug allergies. FAMILY HISTORY: Parents are . SOCIAL HISTORY: He lives with his . He has 4 daughters. He quit smoking. REVIEW OF SYSTEMS: A 10-point review of systems is conducted and is negative except per HPI. PHYSICAL EXAMINATION: VITAL SIGNS: Blood pressure 179/73, heart rate 58, respiration rate 16, satur ating 97% on room air. GENERAL: The patient is a very pleasant man who is resting comfortably in be d. He is holding a paper towel to a bleeding wound on his forehead. HEENT: Shows him to have a wou nd on his forehead. He is wearing a hard neck collar. CARDIOVASCULAR: Irregularly irregular. It i s faint, but I do not appreciate any murmurs, rubs, or gallops. PULMONARY: Shows him to be in no re spiratory distress. Lungs are clear bilaterally from the anterior. ABDOMEN: Soft, nontender, nondi stended. SKIN: Shows no rash. : Shows no Brunson. NEUROLOGIC: Shows him to be alert and oriente d x3. Strength is intact in his upper and lower extremities. Sensation to light touch is intact in his upper and lower extremities. PSYCHIATRIC: Shows normal mood and affect. LABORATORY DATA: Hemoglobin is 12.8. INR is 3.64. BUN is 30. DATA: 1. I discussed this with Dr. Ramirez. Will consult. 2. Head CT shows a hematoma, comminuted fracture of the nasal bone. 3. C-spine shows a small C2 fracture, as well as a small epidural hematoma at the level of C1. 4. ECG, which I personally reviewed and interpreted, shows atrial fibrillation and a left bundle bra nch block. This is unchanged from his prior. IMPRESSION AND PLAN: 81-year-old man presented with fall with serious injuries. 1. Fall versus syncope: His history is not really consistent with syncope, though given the degree of injuries, I am concerned about this. He does have multiple cardiac problems and would suspect a c ardiac source. [facility] has been paged; will come interrogate his pacer. Notably there were some adjustments in his settings made, either yesterday or today. Will trend troponins. I have ordered a n echocardiogram for the morning. I think a Cardiology consult tomorrow would be appropriate. Will monitor him on telemetry. He has multiple cardiac and vascular problems including ventricular tachyc ardia, pacemaker/AICD/coronary artery disease/history of a CVA/renal artery stenosis/femoral-poplitea l bypass, bilateral. 2. C2 fracture: To be managed by Neurosurgery. They have not recommended reversing his INR. He wi ll be followed by Trauma Surgery, as well. 3. Coronary artery disease/peripheral vascular disease: Will defer to Neurosurgery on continuing hi s anticoagulants and Plavix. He is also on a statin. Thank you for involving Hospital Medicine in the care of this patient. We will continue to follow. /[id number]/MODL
[2017-08-01] MEDS: oxyCODONE IR 5 MG TAB PO PRN ×2 (05:37→11:13)
--- NOTE | 2017-08-01 05:44 | GCON ---
[f rep st] CONSULTATION DATE OF CONSULTATION: 07/31/2017 REFERRING PHYSICIAN: Dr. Ramirez ADDITIONAL REFERRING PHYSICIAN: Dr. Vivas. REASON FOR CONSULTATION: Cervical spine fracture. HISTORY OF PRESENT ILLNESS: Patient is an 81-year-old male with a history of peripheral vascular dis ease, aortic stenosis, coronary artery disease, lung disease, pulmonary hypertension, who is on Couma din, who had a syncopal fall at home from standing with a positive loss of consciousness. He did hav e a blow to his head and sustained a left frontal scalp hematoma, comminuted fracture of the nasal cheng ne, and Radiology is calling a type 2 dens fracture with a possible small epidural hematoma at C1. T he patient is complaining of headache but is awake, alert, oriented, has no neurologic complaints oth er than some headache and neck pain. He is in a trauma collar. PAST MEDICAL/SURGICAL HISTORY: Per HPI. Atrial fibrillation. ALLERGIES: No known drug allergies. MEDICATIONS: Anticoagulated on Coumadin. FAMILY HISTORY: Noncontributory as this is a trauma. No recollection of spine fractures in his fami ly. SOCIAL HISTORY: for 57 years. Ex-smoker, quit many years ago. Denies alcohol or drug abuse . REVIEW OF SYSTEMS: Ten points reviewed and negative other than mentioned in HPI. PHYSICAL EXAMINATION: VITAL SIGNS: Blood pressure 201/93, heart rate 69, temperature 36.9, respirat ory rate 16-20, saturating 99% on room air. NEUROLOGIC: Awake, alert, and oriented x3. Appears sta mireya age, in no acute distress. Normal conversant and fluent speech. Normal cranial nerves. 5/5 in all extremities. Normal sensory exam. Normal reflex exam. Gait is deferred. In trauma collar. LABORATORY DATA: White blood cell count 5.18, hemoglobin 12.8, and platelet count 137. INR 3.64. S odium 143, potassium 3.8, BUN and creatinine 30 and 1, glucose 80. Troponin 0.055. IMAGING DATA: Patient's noncontrasted head CT was reviewed. There are no acute findings intracrania lly. Patient's noncontrast CT of the cervical spine reviewed. He has significant cervical spondylos is with small diffuse segments throughout ultimately resulting in fusion from C2 to thoracic spine. He has disk osteophyte stenosis at multiple levels, as well. To my read, he has no acute fractures. IMPRESSION AND PLAN: The patient is an 81-year-old male with multiple medical problems who is antico agulated on warfarin, who had a syncopal fall with loss of consciousness from standing earlier today at his home, is complaining of some headache and neck pain, but is neurologically nonfocal. Radiolog y is calling a type 2 dens fracture, which I do not appreciate on his imaging. Given the fact that garrett salazar does have neck pain, agree he should be in an Brohman or Rhea J collar and should follow up with me in my clinic in 2 weeks with AP and lateral upright x-rays of the cervical spine with an open odontoi d mouth view, as well. Thank you for this consult. /[id number]/MODL
[2017-08-01] MEDS ORDERED: METOPROLOL TARTRATE 25 MG TAB PO SCH ×2 (06:00→18:00)
--- NOTE | 2017-08-01 07:43 | NEUSURGPN ---
Assessment/Plan: 81 y/o male with C2 fracture per radiologist report. -Continue [place] J collar (patient is tolerating this well this morning) -Upright xrays in collar pending -PT/OT -Optimize pain management -Discussed with Dr. Cherry. If upright xrays okay will s/o. Have patient follow up in clinic in 2weeks with AP/lateral/open mouth views of the cervical spine. Subjective: posterior neck pain. Denies any new arm pain, numbness, tingling or weakness. Objective: NAD A&Ox3 MAEx4 5/5 and equal in BUE and BLE. - Physician Discussed Patient with : [facility] Physical Exam - Vitals, I&O, Labs I and O 07/31/17 08/01/17 08/02/17 05:59 05:59 05:59 Intake Total 500 Balance 500 Weight 72.8 kg Intake: Oral (ml) 500 Other: Intake Quantity Yes Sufficient Number of Voids Urinal 1 Vital Signs Temp Pulse Resp BP Pulse Ox 36.8 C 81 16 155/66 H 95 08/01/17 04:00 08/01/17 05:38 08/01/17 04:00 08/01/17 05:38 08/01/17 04:00 ICD10 Worksheet Patient Problems: Problems Problem Status Onset Atrial fibrillation Acute Closed C2 fracture Acute Forehead laceration Acute Syncope Acute Acute ischemic stroke Acute Occlusion of left internal carotid artery Acute PVD (peripheral vascular disease) Acute Ventricular tachycardia Acute
[2017-08-01] MEDS: FUROSEMIDE 20 MG TAB PO SCH (09:37)
[2017-08-01] MEDS: FAMOTIDINE 20 MG TAB PO SCH ×2 (09:37→21:39)
[2017-08-01] MEDS: FENOFIBRATE 145 MG TAB PO SCH (09:37)
[2017-08-01] MEDS: FERROUS SULFATE 140 MG TAB.ER PO SCH (09:37)
--- NOTE | 2017-08-01 11:05 | GCON ---
[f rep st] CONSULTATION CRITICAL CARE CONSULT DATE OF CONSULTATION: 08/01/2017 HISTORY OF PRESENT ILLNESS: The patient is an 81-year-old male, whom I 1st met on 05/15/2017 for gerson luation of pulmonary hypertension. He has a known history of coronary artery disease, atrial fibrill ation, moderate mitral regurgitation and aortic stenosis as well as remote sustained ventricular tach ycardia resulting in an AICD. He recently reported [place] Heart Association class 3-4 symptoms, an d was found to have severe pulmonary hypertension on echocardiogram. He subsequently underwent a rig ht heart catheterization on 05/13/2017, revealing a mean pulmonary artery pressure of 45. Although t he wedge pressure was 23, the pulmonary vascular resistance was 4.49 and the transpulmonary gradient was 22. He was referred originally to me for evaluation of his pulmonary hypertension. He had a smo tod history but no other significant risk factors for pulmonary disease, and was seen in clinic subs equently with pulmonary function tests that were equivocal but did suggest interstitial lung disease. Subsequently he was sent for a high-resolution CT scan that showed pulmonary edema but no ILD. He did have quite a bit of exertional dyspnea the last time I saw him which was on June 25. He has not been back to see me since the CT scan. However, he was admitted yesterday after a syncopal episode at home. He was standing and lost consci ousness, struck his head and resulted in a possible C2 fracture as well as a small epidural hematoma at the level of C1. Trauma was consulted but did not advise any intervention. Neurosurgery was jordan g to evaluate him today. He said that he feels okay, still has significant exertional dyspnea but not much has changed recentl y. REVIEW OF SYSTEMS: Otherwise negative. PAST MEDICAL HISTORY: Includes 1. Aortic stenosis. 2. Mitral regurgitation. 3. Ventricular tachycardia with an AICD placement. 4. Pulmonary hypertension. 5. Hypertension. 6. Hyperlipidemia. 7. Coronary artery disease. 8. Remote stroke. 9. Renal artery stenosis. 10. GI bleed. 11. Peripheral vascular disease. 12. Chronic atrial fibrillation. 13. Carotid artery occlusion. 14. Mild cognitive impairment. 15. Chronic sinusitis. 16. Reflux disease. 17. Iron deficiency anemia. PAST SURGICAL HISTORY: Includes femoral-popliteal bypass, the pacemaker placement, carotid endartere ctomy. SOCIAL HISTORY: He is a former smoker of 2 packs per day for 30 years. Quit in 1979. No significan t alcohol. FAMILY HISTORY: Noncontributory. CURRENT MEDICATIONS: Include Tylenol, Lipitor, Aricept, Pepcid, Tricor, iron sulfate, Lasix, Neuront in, hydralazine, Lopressor, Narcan, Zofran, oxycodone, trazodone. PHYSICAL EXAMINATION: VITAL SIGNS: His blood pressure was 156/63 with a heart rate of 68, respirati ons 14, oxygen saturation 97% on 1 L nasal cannula. GENERAL: He was awake and alert and oriented x3 , in no apparent distress. Able to speak in full sentences without using accessory muscles for breat becky. HEENT: Pupils are equally round, reactive to light. Nonicteric and noninjected. Mucous memb ranes are moist without erythema or exudate. He was wearing a hard C-collar. He had multiple abrasi ons about his face that were mostly small and not bleeding. CHEST: Breath sounds were clear to auscu ltation bilaterally without wheezes, rubs or rales. HEART: Had a somewhat irregular rhythm with a clifton rsh systolic ejection murmur. ABDOMEN: Soft, nontender, nondistended without hepatosplenomegaly. E XTREMITIES: Show no clubbing, cyanosis, or edema. NEUROLOGIC: Nonfocal, including cranial nerves, deep tendon reflexes. SKIN: Warm and dry without evidence of rash. OBJECTIVE DATA: His white count was 5.8, hematocrit 38.6, and platelets 137. His INR was 3.64. Bas ic metabolic panel was unremarkable. Troponin has been negative. UA was also negative. An echocard iogram was done but is pending at this time. ASSESSMENT/PLAN: 1. Syncope. I suspect that this is related to his underlying aortic stenosis which certainly may be worse now. His last echocardiogram that showed moderate aortic stenosis was in January of 2017. Cert ainly his pulmonary hypertension could be a factor here as well but in either case, syncope is a bad sign. A Cardiology consult is pending at this time. He may be a candidate for aortic valve replacem ent, though he does have advanced age and multiple comorbidities. 2. Pulmonary hypertension. I evaluated this thoroughly as an outpatient. Given the information fro m his right heart catheterization, I think his pulmonary hypertension is primarily vascular congestio n related to his left-sided heart disease. He does have known diastolic dysfunction, although this w as not quantified, and severe left atrial enlargement, as well as mitral regurgitation and at least m oderate aortic stenosis. His pulmonary vascular resistance was only 4.49, which is in fact elevated but only mildly so. A mean pulmonary artery pressure of 45 is certainly consistent with severe pulmo nary hypertension, but a trans pulmonary gradient of 22 is by a wedge pressure of 23 at th at time. Typically the transpulmonary gradient greater than 12 is thought to be out of proportion to the left heart disease but that assumes a normal wedge pressure. I think this patient would be a po or candidate for PAH specific therapies that would cause likely pulmonary edema in this setting of di astolic dysfunction and clear cardiac disease. This would also be a reason to consider valve replace ment if he is in fact a candidate for this. We will certainly await Cardiology consult. He is sol jiménez followed by Dr. Ramirez as an outpatient. 3. Abnormal pulmonary function test. His tests were equivocal, though could have been consistent wi th a concomitant restrictive disease but his high-resolution CT scan supported pulmonary edema. It a lso did not show any air trapping so I do not think that chronic obstructive pulmonary disease is an ongoing problem for him. /[id number]/MODL
--- NOTE | 2017-08-01 11:52 | ECHO ---
[id number] + + [id number] : : [place] [id number] : : [phone] + + Adult Echocardiographic Report + ------+ :Name: OLIVIA VARGAS LStudy Date: 08/01/2017 08:30 AM BP: 150/65 mmHg : : Hospital Admission Number: [id number] Naomi n: 244: :: 1935 Gender: Male Height: 71 in : :Age: 81 yrs Race: WH Weight: 157 lb : :Reason For Study: syncope : : BSA: 1.9 meters 2 : :History: syncope : + ------+ MMode/2D Measurements & Calculations IVSd: 1.3 cm RVDd: 3.6 cm FS: 17.8 % Ao root diam: LVPWd: 1.2 cm LVIDd: 4.7 cm EDV(Teich): 3.5 cm LVIDs: 3.8 cm 100.2 ml ESV(Teich): 63.0 ml EF(Teich): 37.1 % LVOT diam: 2.2 cmLVLd ap4: 7.9 cm SV(MOD-sp4): LVOT area: EDV(MOD-sp4): 75.0 ml 3.9 cm2 146.0 ml LVLs ap4: 6.6 cm ESV(MOD-sp4): 71.0 ml EF(MOD-sp4): 51.4 % Normal Measurement Values: + + :LVIDd (3.5-5.7cm) IVSd (0.6-1.1cm) LVPWd (0.6-1.1cm) Aortic Root (2.0-3.7cm)Left Atrium (1.5-4.0cm): :LV Vol(d) (76-115ml) LV Vol(s) (29-48ml) Ejec Fraction (50-65%)PV Carlo (0.6- 1.2m/s) TV Carlo (0.4-1.0m/s) : :MV E Carlo (0.8-1.0m/s)MV A Carlo (0.3-1.0m/s)LVOT Carlo (0.7-1.2m/s) Asc Ao Carlo ( 0.9-1.8m/s) : + + Doppler Measurements & Calculations MV E max carlo: Ao V2 max: LV V1 mean PG: SV(LVOT): 97.2 cm/sec 348.8 cm/sec 1.7 mmHg 80.3 ml MV A max carlo: Ao max P.7 mmHg LV V1 mean: 34.6 cm/sec Ao mean P.4 cm/sec MV E/A: 2.8 34.8 mmHg LV V1 VTI: 20.4 cm MV dec time: 0.21 secAo V2 mean: 288.3 cm/sec Ao V2 VTI: 92.2 cm MACK(I,D): 0.87 cm2 PA V2 max: TR max carlo: 59.2 cm/sec 373.3 cm/sec PA max P.4 mmHg TR max P.7 mmHg RAP systole: 5.0 mmHg RVSP(TR): 60.7 mmHg Left Ventricle The left ventricle is normal in size. There is moderate concentric left ventricular hypertrophy. Left ventricular systolic function is low normal. Ejection Fraction = 50-55%. Abnormal septal motion most likely to secondary to pacemaker. Right Ventricle The right ventricle is normal in size and function. There is a pacemaker lead in the right ventricle. Atria The left atrium is severely dilated. The Left Atrial Volume is 83 ml/m2. The right atrium is moderate to severely dilated. Mitral Valve The mitral valve leaflets appear thickened, but open well. Posterior mitral annular calcification. There is no mitral valve stenosis. There is moderate mitral regurgitation. Tricuspid Valve The tricuspid valve is normal in structure and function. There is no tricuspid stenosis. There is severe tricuspid regurgitation. Right ventricular systolic pressure is 61mmHg. There is Doppler evidence for moderate to severe pulmonary hypertension. Aortic Valve The aortic valve is trileaflet. Severe Aortic Valve Calcification. Moderate to severe valvular aortic stenosis. Mean gradient across the AV 35mmHg and NDSI = .22. Mild aortic regurgitation. Pulmonic Valve The pulmonic valve is not well visualized. Mild pulmonic valvular regurgitation. Great Vessels The aortic root is normal size. Pericardium/Pleural There is no pericardial effusion. Conclusion A two-dimensional transthoracic echocardiogram with M-mode and Doppler was performed. There is moderate concentric left ventricular hypertrophy. Left ventricular systolic function is low normal. Ejection Fraction = 50-55%. Abnormal septal motion most likely to secondary to pacemaker. The left atrium is severely dilated. The Left Atrial Volume is 83 ml/m2. The right atrium is moderate to severely dilated. Posterior mitral annular calcification. There is moderate mitral regurgitation. There is severe tricuspid regurgitation. Right ventricular systolic pressure is 61mmHg. There is Doppler evidence for moderate to severe pulmonary hypertension. Severe Aortic Valve Calcification Moderate to severe valvular aortic stenosis. Mean gradient across the AV 35mmHg and NDSI = .22. Mild aortic regurgitation. Mild pulmonic valvular regurgitation. Final Reading Physician: Josee Padron signed on 08/01/2017 11:50 AM Ordering Physician: Klever Leung Performed By: Kathi Chávez
[2017-08-01] MEDS: hydrALAZINE 20 MG/ML VIAL IVP PRN (12:13)
--- NOTE | 2017-08-01 15:57 | HOSPPROG ---
Hospitalist Progress Note Assessment/Plan: 81 yo M w , pulm htn here w likely cardiac syncope, nasal and dens fx dens fx: hard collar neurosurgery following repeat films : worse by echo i am concerned that this is cause of syncope will have cardiology see would like to dc BB but rapid AF noted AF: continue warfarin and BB pulm htn: 2.2 L heart valvular disease dispo: inpt Subjective: tele: AF (interp by me). case d/w dr grossman Objective: Vital Signs Temp Pulse Resp BP Pulse Ox 36.4 C 78 13 162/68 H 97 08/01/17 15:44 08/01/17 15:44 08/01/17 15:44 08/01/17 15:44 08/01/17 15:44 07/31/17 08/01/17 08/02/17 05:59 05:59 05:59 Intake Total 500 Balance 500 PT 36.8 SEC (12.0-15.0) H 07/31/17 17:30 INR 3.64 (0.83-1.16) H 07/31/17 17:30 - Physical Exam Constitutional: no apparent distress, appears nourished Eyes: PERRL, anicteric sclera Ears, Nose, Mouth, Throat: other (hard collar) Cardiovascular: regular rate and rhythym, no murmur, rub, or gallop, systolic murmur Respiratory: no respiratory distress, no rales or rhonchi, clear to auscultation Gastrointestinal: normoactive bowel sounds Genitourinary: No bentley in urethra Skin: warm, normal color Musculoskeletal: full muscle strength, no muscle tenderness Neurologic: AAOx3 ICD10 Worksheet Patient Problems: Problems Problem Status Onset Atrial fibrillation Acute Closed C2 fracture Acute Forehead laceration Acute Syncope Acute Acute ischemic stroke Acute Occlusion of left internal carotid artery Acute PVD (peripheral vascular disease) Acute Ventricular tachycardia Acute
[2017-08-01] MEDS ORDERED: WARFARIN SODIUM 2.5 MG TAB PO SCH (16:00)
[2017-08-01] MEDS: ATORVASTATIN CALCIUM 40 MG TAB PO SCH (17:33)
[2017-08-01] MEDS: ACETAMINOPHEN 325 MG TAB PO SCH ×2 (17:33→23:04)
[2017-08-01] MEDS: METOPROLOL TARTRATE 25 MG TAB PO SCH (17:34)
--- NOTE | 2017-08-01 18:59 | SOAPPROG ---
SOAP Progress Note Assessment/Plan: Assessment: seen earlier this am for tertiary exam c2 fx stable in cervical brace, ns following nasal fx, will need ent foloow up no new injuries identified syncopal retana ongoing with multiple heart valve abnormalities including mod INR > 3 neuro stable/ chest clear and nontender/ cor rr/ abd soft and nontender extrem ok with decreased pedal pulses Plan:per NS 08/01/17 18:54 Objective: Vital Signs Temp Pulse Resp BP Pulse Ox 36.4 C 72 18 174/65 H 98 08/01/17 15:44 08/01/17 16:44 08/01/17 16:44 08/01/17 16:44 08/01/17 16:44 07/31/17 08/01/17 08/02/17 05:59 05:59 05:59 Intake Total 500 400 Output Total 200 Balance 500 200 PT 36.8 SEC (12.0-15.0) H 07/31/17 17:30 INR 3.64 (0.83-1.16) H 07/31/17 17:30 ICD10 Worksheet Patient Problems: Problems Problem Status Onset Atrial fibrillation Acute Closed C2 fracture Acute Forehead laceration Acute Syncope Acute Acute ischemic stroke Acute Occlusion of left internal carotid artery Acute PVD (peripheral vascular disease) Acute Ventricular tachycardia Acute
--- NOTE | 2017-08-01 20:06 | CPEKG ---
Heart Rate: 70 RR Interval: 857 QRSD Interval: 158 QT Interval: 496 QTC Interval: 536 QRS [place]: -34 T Wave [place]: 141 EKG Severity - ABNORMAL ECG - EKG Impression: ATRIAL FIBRILLATION, V-RATE 50-82 EKG Impression: LEFT BUNDLE BRANCH BLOCK Electronically Signed By: Riya Toledo 02-Aug-2017 21:32:52
[2017-08-01] MEDS ORDERED: LISINOPRIL 5 MG TAB PO ONE (21:18)
[2017-08-01] MEDS: DONEPEZIL HCL 5 MG TAB PO SCH (21:39)
[2017-08-01] MEDS: traZODone 50 MG TAB PO SCH (21:39)
[2017-08-01] MEDS: GABAPENTIN 300 MG CAP PO SCH (21:39)
[2017-08-02 05:29] LABS: INR 3.9 (0.83-1.16); PROTIME(PATIENT) 38.9 SEC (12.0-15.0)
[2017-08-02] MEDS: METOPROLOL TARTRATE 25 MG TAB PO SCH ×3 (05:52→19:18)
[2017-08-02] MEDS: ACETAMINOPHEN 325 MG TAB PO SCH ×4 (06:50→23:44)
[2017-08-02] MEDS: FERROUS SULFATE 140 MG TAB.ER PO SCH (08:19)
[2017-08-02] MEDS: FAMOTIDINE 20 MG TAB PO SCH ×2 (08:20→20:52)
[2017-08-02] MEDS: FUROSEMIDE 20 MG TAB PO SCH (08:20)
[2017-08-02] MEDS: oxyCODONE IR 5 MG TAB PO PRN ×3 (08:21→20:52)
[2017-08-02] MEDS: FENOFIBRATE 145 MG TAB PO SCH (08:21)
--- NOTE | 2017-08-02 08:45 | TRAUMAPN ---
Assessment/Plan: 81yo M s/p fall c C spine fx, ?C1 EDH. - Examination remains non-focal this AM and his pain is well controlled. He remains in his collar per NSG. Discussed with NSG his poss C1 EDH and further treatment needed. SBP remains elevated in light of underlying . Patient back on all home anticoag. Patient still receiving syncopal w/y, Trauma service to s/ o. Call with questions Subjective: Doing well, has no complaints. Objective: Vital Signs Temp Pulse Resp BP Pulse Ox 36.9 C 61 15 133/58 H 99 08/02/17 04:00 08/02/17 04:00 08/02/17 04:00 08/02/17 04:00 08/02/17 04:00 08/01/17 08/02/17 08/03/17 05:59 05:59 05:59 Intake Total 500 800 Output Total 650 Balance 500 150 PT 38.9 SEC (12.0-15.0) H 08/02/17 05:10 INR 3.90 (0.83-1.16) H 08/02/17 05:10
[2017-08-02] MEDS: CLOPIDOGREL BISULFATE 75 MG TAB PO SCH (10:43)
--- NOTE | 2017-08-02 13:06 | PDCARCONS ---
Cardiology Consult Reason for Consult: Syncope Chief Complaint: Broken neck Requesting Physician: Danilo History of Present Illness: 81-year-old male well known to our service cared for by my partner Elroy Ramirez, history of coronary disease with known occlusion of the right coronary artery status post recent coronary angiogram, history of chronic atrial fibrillation with a left atrial clot chronically anticoagulated with a rate control strategy , history of ventricular tachycardia with a [employer] Chris ICD placed in 2014 , history of severe peripheral vascular disease status post multiple intervention with carotid artery occlusion, history of severe pulmonary hypertension with a transpulmonary gradient of 22 mm of mercury and recent peak gradient of over 70 mm of mercury, history of progressive dementia over the last 12 months likely secondary to vascular disease admitted to the hospital with sudden loss of consciousness resulting in fracture of his neck and contusions of the face. Patient did not report palpitations prior to the event. He had no chest pain or shortness of breath prior to the event. He awoke promptly. He had no loss of bowel or bladder. He had no seizure activity. It was witnessed by his . He has been admitted to the hospital on telemetry monitoring. He did not receive an ICD shock as best he can tell. He has had no dysrhythmia on monitor here. On my arrival he has no cardiovascular complaints. He clearly is confabulating deferring to his during conversation making his history unreliable. Patient was last seen in the office July 12. At that time he had mild peripheral edema and was started on low-dose Lasix. His claudication was stable. He was being evaluated by Pulmonary Medicine for etiology of primary pulmonary hypertension and some consideration was being made to start him on vaso dilator therapy. History Information - Allergies/Home Medication List Allergies/Adverse Reactions: No Known Allergies Allergy (Verified 07/31/17 17:45) Home Medications: Clopidogrel Bisulfate [Plavix (*)] 75 mg PO DAILY 06/25/13 [Last Taken 07/31/17] Ranitidine HCl [Ranitidine HCl 150 mg] 150 mg PO BID 06/25/13 [Last Taken ] Atorvastatin Calcium [Lipitor 80 mg] 80 mg PO DAILY@18 11/05/16 [Last Taken 04/10] Ferrous Sulfate [Slow Fe 140 MG (*)] 140 mg PO DAILY 11/05/16 [Last Taken ] Warfarin Sodium [Coumadin 2.5MG (*)] 2.5 mg PO SUMOTUWETHFR@16 11/05/16 [Last Taken 07/31/17] Donepezil HCl [Aricept 5 MG (*)] 5 mg PO HS 05/10/17 [Last Taken 07/30/17] Warfarin Sodium [Coumadin 5MG (*)] 5 mg PO SA@16 05/10/17 [Last Taken 07/27/17] Acetaminophen [Tylenol 325mg (*)] 325 mg PO DAILY PRN 07/31/17 [Last Taken Unknown] Fenofibrate [Tricor 145 mg (*)] 145 mg PO DAILY 07/31/17 [Last Taken 07/31/17] Furosemide [Lasix 20 MG (*)] 20 mg PO DAILY 07/31/17 [Last Taken 07/31/17] Gabapentin [Neurontin 300 MG (*)] 300 mg PO HS 07/31/17 [Last Taken 07/30/17] I have personally reviewed and updated: medical history, social history, surgical history Past Medical History: - Past Medical History atrial fibrillation, coronary artery disease, dementia, hypertension, hyperlipidemia, peripheral artery disease, TIA - Surgical History Reports: vascular surgery - Family History Positive for: non-pertinent - Social History Smoking Status: Former smoker Physical Exam Physical Exam: Temp Pulse Resp BP Pulse Ox 36.6 C 95 13 172/58 H 100 08/02/17 11:51 08/02/17 12:00 08/02/17 11:51 08/02/17 12:00 08/02/17 11:51 O2 (L/minute) 1 Constitutional: no apparent distress, appears nourished, not in pain, other Eyes: anicteric sclera Ears, Nose, Mouth, Throat: moist mucous membranes Cardiovascular: regular rate and rhythym, systolic murmur, No JVD Respiratory: no respiratory distress, no rales or rhonchi, clear to auscultation Gastrointestinal: normoactive bowel sounds, soft, non-tender abdomen Genitourinary: no bladder fullness Skin: warm, other (Contusions of the face) Musculoskeletal: other (Sitting in chair with cervical collar in place) Psychiatric: poor insight Lymph, Heme, Immunologic: no cervical LAD, no supraclavicular LAD Lab and Imaging 07/31/17 17:30 07/31/17 17:30 WBC 5.18 10^3/uL (3.80-9.50) 07/31/17 17:30 RBC 3.80 10^6/uL (4.40-6.38) L 07/31/17 17:30 Hgb 12.8 g/dL (13.7-17.5) L 07/31/17 17:30 Hct 38.6 % (40.0-51.0) L 07/31/17 17:30 MCV 101.6 fL (81.5-99.8) H 07/31/17 17:30 MCH 33.7 pg (27.9-34.1) 07/31/17 17:30 MCHC 33.2 g/dL (32.4-36.7) 07/31/17 17:30 RDW 14.5 % (11.5-15.2) 07/31/17 17:30 Plt Count 137 10^3/uL (150-400) L 07/31/17 17:30 MPV 10.8 fL (8.7-11.7) 07/31/17 17:30 Neut % (Auto) 36.7 % (39.3-74.2) L 07/31/17 17:30 Lymph % (Auto) 46.7 % (15.0-45.0) H 07/31/17 17:30 [place] % (Auto) 12.7 % (4.5-13.0) 07/31/17 17:30 Eos % (Auto) 2.9 % (0.6-7.6) 07/31/17 17:30 Baso % (Auto) 0.6 % (0.3-1.7) 07/31/17 17:30 Nucleat RBC Rel Count 0.0 % (0.0-0.2) 07/31/17 17:30 Absolute Neuts (auto) 1.90 10^3/uL (1.70-6.50) 07/31/17 17:30 Absolute Lymphs (auto) 2.42 10^3/uL (1.00-3.00) 07/31/17 17:30 Absolute Monos (auto) 0.66 10^3/uL (0.30-0.80) 07/31/17 17:30 Absolute Eos (auto) 0.15 10^3/uL (0.03-0.40) 07/31/17 17:30 Absolute Basos (auto) 0.03 10^3/uL (0.02-0.10) 07/31/17 17:30 Absolute Nucleated RBC 0.00 10^3/uL (0-0.01) 07/31/17 17:30 Immature Gran % 0.4 % (0.0-1.1) 07/31/17 17:30 Immature Gran # 0.02 10^3/uL (0.00-0.10) 07/31/17 17:30 PT 38.9 SEC (12.0-15.0) H 08/02/17 05:10 INR 3.90 (0.83-1.16) H 08/02/17 05:10 Sodium 143 mEq/L (134-144) 07/31/17 17:30 Potassium 3.8 mEq/L (3.5-5.2) 07/31/17 17:30 Chloride 105 mEq/L (97-110) 07/31/17 17:30 Carbon Dioxide 24 mEq/l (22-31) 07/31/17 17:30 Anion Gap 14 mEq/L (8-16) 07/31/17 17:30 BUN 30 mg/dL (7-23) H 07/31/17 17:30 Creatinine 1.0 mg/dL (0.7-1.3) 07/31/17 17:30 Estimated GFR > 60 07/31/17 17:30 Glucose 80 mg/dL (70-100) 07/31/17 17:30 Calcium 9.4 mg/dL (8.5-10.4) 07/31/17 17:30 Troponin I 0.043 ng/mL (0.000-0.034) H 08/01/17 12:30 Urine Color YELLOW 08/01/17 00:25 Urine Appearance CLEAR 08/01/17 00:25 Urine pH 6.0 (5.0-7.5) 08/01/17 00:25 Ur Specific [place] 1.015 (1.002-1.030) 08/01/17 00:25 Urine Protein NEGATIVE (NEGATIVE) 08/01/17 00:25 Urine Ketones NEGATIVE (NEGATIVE) 08/01/17 00:25 Urine Blood 1+ (NEGATIVE) H 08/01/17 00:25 Urine Nitrate NEGATIVE (NEGATIVE) 08/01/17 00:25 Urine Bilirubin NEGATIVE (NEGATIVE) 08/01/17 00:25 Urine Urobilinogen NEGATIVE EU (0.2-1.0) 08/01/17 00:25 Ur Leukocyte Esterase NEGATIVE (NEGATIVE) 08/01/17 00:25 Urine RBC 5-10 /hpf (0-3) H 08/01/17 00:25 Urine WBC NONE SEEN /hpf (0-3) 08/01/17 00:25 Ur Epithelial Cells TRACE /lpf (NONE-1+) 08/01/17 00:25 Hyaline Casts 1-5 /lpf (0-1) 08/01/17 00:25 Urine Mucus TRACE /lpf (NONE-1+) 08/01/17 00:25 Urine Glucose NEGATIVE (NEGATIVE) 08/01/17 00:25 Visualized and Interpreted Chest x-ray results: No EKG Interpretation: Positive for: left bundle branch block, other (Atrial fibrillation) Echocardiogram: Echocardiogram showed no pericardial effusion. Pulmonary hypertension persists. Moderate aortic stenosis with a peak gradient of 52 mm of mercury by Doppler. Normal left ventricular systolic function. A/P Assessment: Problem list: 1. Cardiac syncope. 2. Moderate aortic stenosis unchanged from previous evaluation. 3. Coronary artery disease with occluded right coronary artery status post cardiac catheterization this year. 4. Ventricular tachycardia with functioning ICD. 5. Atrial fibrillation with chronic rate control and chronic anticoagulation. ( Chronic anticoagulation complicated in the past by GI bleeding) not being on anticoagulation complicated by left atrial thrombus. 6. Vascular dementia. with TIA 7. Peripheral vascular disease status post endarterectomy, multiple interventions. 8. Hypertension. 9. Hyperlipidemia. Discussion: Clinical history very concerning for true cardiac syncope with abrupt onset leading to significant trauma. Differential diagnosis would include ventricular arrhythmia requiring therapy versus complex valvular heart disease versus severe pulmonary hypertension. Based on echocardiography, current data available, I feel this is likely secondary to severe pulmonary hypertension. His atrial fibrillation appears to be well rate controlled. He is appropriately anticoagulated. Does not have unstable angina by clinical history or EKG with recent diagnostic angiogram doubt significant progression in that time frame. At this point will plan to interrogate his ICD to determine if this was a ventricular arrhythmia that required therapy. If so, would consider addition of antiarrhythmic drug. All drugs in his case would have significant risk. This would have to be discussed further if this were the clinical path we were to follow. Based on his echocardiogram this does not seem to be progression of his aortic valve disease has remains moderate. This was evaluated by cardiac catheterization recently. He is not a candidate for surgery at this time. I do not think this represents a neurologic process based on clinical history. History was also not consistent with an orthostatic or vagal etiology. Overall prognosis remains poor. Will await results of device interrogation before making more recommendations. In the short term would continue current medical therapy as previously ordered. I have discussed the case with the patient's and Dr. Ramirez. Plan: Interrogate device. Telemetry monitoring. Review of Systems Review of Systems: - Review of Systems Constitutional: denies: chills, fever EENTM: no symptoms reported Respiratory: no symptoms reported Cardiac: no symptoms reported Gastrointestinal/Abdominal: no symptoms reported Genitourinary: no symptoms Musculoskelatal: no symptoms Skin: no symptoms Neurological: no symptoms Hematologic/Lymphatic: no symptoms reported Immunologic/allergic: no symptoms reported Past Medical History PMH: - Personal History Tetanus Vaccine Date: WITHIN 10 YRS - Medical/Surgical History Hx Asthma: No Hx Chronic Respiratory Disease: No Hx Cardiac Disease: Yes Hx Diabetes: No Hx Renal Disease: No Hx Alcoholism: No Hx Cirrhosis: No Hx HIV/AIDS: No Hx Splenectomy or Spleen Trauma: No Other PMH: HTN, PPM, Afib, Hyperlipids, bilateral endarectomies,tonillectomy, angiogram - Social History Smoking Status: Former smoker Additional Social History:
--- NOTE | 2017-08-02 14:30 | PDINTPN ---
Folding Machine Feeder Progress Note Assessment/Plan: Assessment/plan: 81 M known to me from outpatient workup for severe pulmonary hypertension. He was admitted 07/31/17 after a syncopal episode resulting in a possible C@ fracture , small epidural hematoma and nasal fractures- all managed conservatively including a [place] J collar but no surgery. * Pulmonary hypertension- He has multiple cardiac etiologies including at least moderate aortic stenosis (if not mod-severe), moderate MR, atrial fibrillation, and remote sustained VT requiring an AICD. His diastolic function is unknown, but likely plays a role given his advanced age. On his echos (both now and on ) he has severe LAE, and on his RHC of 05/11/17 had a PCW of 23. I suspect his PH is the result of well-documented left heart disease, and in the setting of portends a poor prognosis and elevated mortality. Confounding this picture has been moderate to severe that appears relatively stable over the last 6 months, though his mean gradient by echo has increased from 27 to 35. His MACK on cath is markedly discordant with his echo- 1.7 cm2 vs 0.6-0.8 on echo , though cath is considered the gold standard. In general, AVR for with PH has a high mortal;ity, but benefits probably outweigh the risks since PH and NYHA functional class are known to improve. A TAVR would clearly be favored over open AVR should he qualify. I am not in favor of PAH specific medical therapy in this patient (eg ETA antagonists, PDE inhibitors, PG analogues, or guanylate cyclase stimulators) for fear of instigating severe pulmonary edema, or, even if he had COPD, worsening VQ mismatch and hypoxemia. An alternative to TAVR might include maximizing medical therapy directed at - such as diuretics and BP control including ADAM inhibitors. Will defer to cards for that and consider at least eval by CT surgery for TAVR. * PH work-up : He has a remote smoking history but PFTs showed clearly restrictive spirometry (FEV1/FVC= 82, with FVC= 60% and FEV1= 66%), and a recent HRCT showed pulmonary edema without evidence of ILD, emphysema or air trapping. He has no signs/symptoms suggestive of JOSH, lives at [address], and has no evidence of primary hypoventilation or asthma or chronic hypoxemia. He also lacks any evidence of causes of PAH- no connective tissue disease, IVDA, portopulmonary hypertension, HIV risk factors, diet drug use, familial PH, PVOD , shistosomiasis, myeloproliferative disease, sickle cell disease, or splenectomy. In addition he lacks evidence of sarcoidosis, chronic thromboembolic disease, histiocytosis X, or end stage renal disease. * C2 fracture and C1 EDH- no intervention planned and cleared for full anticoagulation. Trauma and NSG have signed off. * Syncope- ICD to be interrogated per cards. Subjective: Stable overnight, but repeatedly reports intolerable dizziness when sitting upright in the chair and asks to resume supine position. Objective: Vital Signs Temp Pulse Resp BP Pulse Ox 36.6 C 95 13 172/58 H 100 08/02/17 11:51 08/02/17 12:00 08/02/17 11:51 08/02/17 12:00 08/02/17 11:51 08/01/17 08/02/17 08/03/17 05:59 05:59 05:59 Intake Total 500 800 Output Total 650 Balance 500 150 PT 38.9 SEC (12.0-15.0) H 08/02/17 05:10 INR 3.90 (0.83-1.16) H 08/02/17 05:10 Physical Exam - Physical Exam General Appearance: alert, no apparent distress, other (facial abrasions) EENT: PERRL/EOMI Neck: limited range of motion Respiratory: lungs clear, normal breath sounds, No respiratory distress Cardiac/Chest: regular rate, rhythm, No edema Abdomen: non-tender, soft, No distended Skin: normal color, warm/dry Lymphatic: no adenopathy Extremities: No pedal edema Neuro/Psych: alert, normal mood/affect, oriented x 3 ICD10 Worksheet Patient Problems: Problems Problem Status Onset Atrial fibrillation Acute Closed C2 fracture Acute Forehead laceration Acute Syncope Acute Acute ischemic stroke Acute Occlusion of left internal carotid artery Acute PVD (peripheral vascular disease) Acute Ventricular tachycardia Acute
--- NOTE | 2017-08-02 15:11 | HOSPPROG ---
Hospitalist Progress Note Assessment/Plan: 81 yo M w , pulm htn here w likely cardiac syncope, nasal and dens fx dens fx: hard collar neurosurgery following repeat films confirm; improved alignment : per eddie, minimally changed on echo and not responsible for syncope syncope: not explained by interrogation of AICD apparently w no explanation follow AF: continue warfarin and BB pulm htn: 2.2 L heart valvular disease dispo: inpt Subjective: case d/w farooq grossman and eddie Objective: Vital Signs Temp Pulse Resp BP Pulse Ox 36.6 C 95 13 172/58 H 100 08/02/17 11:51 08/02/17 12:00 08/02/17 11:51 08/02/17 12:00 08/02/17 11:51 08/01/17 08/02/17 08/03/17 05:59 05:59 05:59 Intake Total 500 800 Output Total 650 Balance 500 150 PT 38.9 SEC (12.0-15.0) H 08/02/17 05:10 INR 3.90 (0.83-1.16) H 08/02/17 05:10 - Physical Exam Constitutional: no apparent distress, appears nourished Eyes: PERRL, anicteric sclera Ears, Nose, Mouth, Throat: moist mucous membranes, hearing normal Cardiovascular: regular rate and rhythym, no murmur, rub, or gallop Respiratory: no respiratory distress, no rales or rhonchi Gastrointestinal: normoactive bowel sounds, soft, non-tender abdomen Genitourinary: no bladder fullness, No bentley in urethra Skin: warm, normal color Musculoskeletal: full muscle strength Neurologic: AAOx3 Psychiatric: interacting appropriately ICD10 Worksheet Patient Problems: Problems Problem Status Onset Atrial fibrillation Acute Closed C2 fracture Acute Forehead laceration Acute Syncope Acute Acute ischemic stroke Acute Occlusion of left internal carotid artery Acute PVD (peripheral vascular disease) Acute Ventricular tachycardia Acute
[2017-08-02] MEDS: ATORVASTATIN CALCIUM 40 MG TAB PO SCH (19:18)
[2017-08-02] MEDS: traZODone 50 MG TAB PO SCH (20:52)
[2017-08-02] MEDS: GABAPENTIN 300 MG CAP PO SCH (20:52)
[2017-08-02] MEDS: DONEPEZIL HCL 5 MG TAB PO SCH (20:52)
[2017-08-03] MEDS: oxyCODONE IR 5 MG TAB PO PRN (05:58)
[2017-08-03] MEDS: ACETAMINOPHEN 325 MG TAB PO SCH ×4 (05:58→23:02)
[2017-08-03] MEDS: METOPROLOL TARTRATE 25 MG TAB PO SCH ×2 (05:58→18:06)
[2017-08-03 06:09] LABS: INR 4.44 (0.83-1.16); PROTIME(PATIENT) 43.2 SEC (12.0-15.0)
[2017-08-03 07:11] LABS: ANION GAP 14 mEq/L (8-16); CALCIUM 9.4 mg/dL (8.5-10.4); CARBON DIOXIDE 17 mEq/l (22-31); CHLORIDE 108 mEq/L (97-110); CREATININE 0.8 mg/dL (0.7-1.3); GLOMERULAR FILTRATION RATE > 60; GLUCOSE 94 mg/dL (70-100); POTASSIUM 4.8 mEq/L (3.5-5.2); SODIUM 139 mEq/L (134-144)
[2017-08-03 07:23] LABS: HEMOGLOBIN 12.5 g/dL (13.7-17.5); MEAN CELL HEMOGLOBIN 33.7 pg (27.9-34.1); MEAN CELL HEMOGLOBIN CONCENTR. 32.9 g/dL (32.4-36.7); MEAN CELL VOLUME 102.4 fL (81.5-99.8); RED BLOOD CELL COUNT 3.71 10^6/uL (4.40-6.38); RED CELL DISTRIBUTION WIDTH 14.5 % (11.5-15.2)
[2017-08-03] MEDS: FERROUS SULFATE 140 MG TAB.ER PO SCH (08:27)
[2017-08-03] MEDS: FAMOTIDINE 20 MG TAB PO SCH ×2 (08:27→20:56)
[2017-08-03] MEDS: CLOPIDOGREL BISULFATE 75 MG TAB PO SCH (08:27)
[2017-08-03] MEDS: FENOFIBRATE 145 MG TAB PO SCH (08:27)
--- NOTE | 2017-08-03 13:26 | HOSPPROG ---
Hospitalist Progress Note Assessment/Plan: 81 yo M w , pulm htn here w likely cardiac syncope, nasal and dens fx dens fx: hard collar neurosurgery following repeat films confirm; improved alignment : EMERY roberson minimally changed on echo and not responsible for syncope syncope: probably 2/2 pulm htn/MV acidosis: unclear cause non gap repeat in AM AF: continue warfarin and BB pulm htn: 2.2 L heart valvular disease dispo: inpt borderline for snf repeat PT/OT eval in AM Subjective: tele: intermittentAF. case d/w dr grossman Objective: Vital Signs Temp Pulse Resp BP Pulse Ox 36.6 C 63 13 96/62 L 96 08/03/17 11:45 08/03/17 11:45 08/03/17 11:45 08/03/17 11:45 08/03/17 11:45 Laboratory Results 08/03/17 06:25 08/03/17 05:42 08/02/17 08/03/17 08/04/17 05:59 05:59 05:59 Intake Total 800 1930 Output Total 650 460 Balance 150 1470 PT 43.2 SEC (12.0-15.0) H 08/03/17 05:42 INR 4.44 (0.83-1.16) H 08/03/17 05:42 - Physical Exam Constitutional: no apparent distress, appears nourished Eyes: PERRL, anicteric sclera Ears, Nose, Mouth, Throat: moist mucous membranes, hearing normal Cardiovascular: regular rate and rhythym, systolic murmur Respiratory: no respiratory distress, no rales or rhonchi Gastrointestinal: normoactive bowel sounds, soft, non-tender abdomen Genitourinary: no bladder fullness, bentley in urethra Skin: warm, normal color Musculoskeletal: full muscle strength, no muscle tenderness Neurologic: AAOx3 Psychiatric: interacting appropriately, not anxious ICD10 Worksheet Patient Problems: Problems Problem Status Onset Atrial fibrillation Acute Closed C2 fracture Acute Forehead laceration Acute Syncope Acute Acute ischemic stroke Acute Occlusion of left internal carotid artery Acute PVD (peripheral vascular disease) Acute Ventricular tachycardia Acute
--- NOTE | 2017-08-03 13:44 | PDINTPN ---
Airplane Dispatch Clerk Progress Note Assessment/Plan: Assessment/plan: 81 M known to me from outpatient workup for severe pulmonary hypertension. He was admitted 07/31/17 after a syncopal episode resulting in a possible C@ fracture , small epidural hematoma and nasal fractures- all managed conservatively including a [place] J collar but no surgery. * Pulmonary hypertension- He has multiple cardiac etiologies including at least moderate aortic stenosis (if not mod-severe), moderate MR, atrial fibrillation, and remote sustained VT requiring an AICD. His diastolic function is unknown, but likely plays a role given his advanced age. See note from 08/02 for detailed discussion. His syncopal episode, even if primarily driven by PH, knowles a significant morbidity. The etiology of his PH is left heart disease, so I would advocate for maximal effort directed at this. Options include beta lucy alone (he was on pre-hospital), diuretics, ADAM inhibitors. Could consider TAVR clinic for review of or further investigation of MR options. He is a poor candidate for PAH directed therapies. * C2 fracture and C1 EDH- no intervention planned and cleared for full anticoagulation. Trauma and NSG have signed off. Remains in [place] J collar * Syncope- ICD 08/03/17 13:13 Subjective: feels well- walking in frank Objective: Vital Signs Temp Pulse Resp BP Pulse Ox 36.6 C 63 13 96/62 L 96 08/03/17 11:45 08/03/17 11:45 08/03/17 11:45 08/03/17 11:45 08/03/17 11:45 Laboratory Results 08/03/17 06:25 08/03/17 05:42 08/02/17 08/03/17 08/04/17 05:59 05:59 05:59 Intake Total 800 1930 Output Total 650 460 Balance 150 1470 PT 43.2 SEC (12.0-15.0) H 08/03/17 05:42 INR 4.44 (0.83-1.16) H 08/03/17 05:42 Physical Exam - Physical Exam General Appearance: alert, no apparent distress EENT: PERRL/EOMI Neck: normal inspection, other (collar) Respiratory: lungs clear, normal breath sounds, No respiratory distress Cardiac/Chest: regular rate, rhythm, No edema Abdomen: non-tender, soft, No distended Skin: normal color, warm/dry, other (skin abrasions) Neuro/Psych: alert, normal mood/affect, oriented x 3 ICD10 Worksheet Patient Problems: Problems Problem Status Onset Atrial fibrillation Acute Closed C2 fracture Acute Forehead laceration Acute Syncope Acute Acute ischemic stroke Acute Occlusion of left internal carotid artery Acute PVD (peripheral vascular disease) Acute Ventricular tachycardia Acute
[2017-08-03] MEDS: POLYETHYLENE GLYCOL 3350 17 GM PKT PO SCH ×2 (15:14→20:56)
[2017-08-03] MEDS ORDERED: WARFARIN SODIUM 5 MG TAB PO SCH (16:00)
[2017-08-03] MEDS: ATORVASTATIN CALCIUM 40 MG TAB PO SCH (18:06)
[2017-08-03] MEDS: DONEPEZIL HCL 5 MG TAB PO SCH (20:56)
[2017-08-03] MEDS: traZODone 50 MG TAB PO SCH (20:56)
[2017-08-03] MEDS: GABAPENTIN 300 MG CAP PO SCH (20:56)
[2017-08-04 04:48] LABS: INR 3.81 (0.83-1.16); PROTIME(PATIENT) 38.2 SEC (12.0-15.0)
[2017-08-04] MEDS: ACETAMINOPHEN 325 MG TAB PO SCH ×4 (06:08→23:29)
[2017-08-04] MEDS: METOPROLOL TARTRATE 25 MG TAB PO SCH ×2 (06:09→17:47)
[2017-08-04] MEDS: FERROUS SULFATE 140 MG TAB.ER PO SCH (08:40)
[2017-08-04] MEDS: FAMOTIDINE 20 MG TAB PO SCH ×2 (08:41→20:56)
[2017-08-04] MEDS: POLYETHYLENE GLYCOL 3350 17 GM PKT PO SCH ×2 (08:41→20:56)
[2017-08-04] MEDS: CLOPIDOGREL BISULFATE 75 MG TAB PO SCH (08:41)
[2017-08-04] MEDS: FENOFIBRATE 145 MG TAB PO SCH (08:49)
[2017-08-04 14:09] LABS: ANION GAP 8 mEq/L (8-16); CARBON DIOXIDE 26 mEq/l (22-31); CHLORIDE 102 mEq/L (97-110); CREATININE 0.8 mg/dL (0.7-1.3); GLOMERULAR FILTRATION RATE > 60; GLUCOSE 98 mg/dL (70-100); POTASSIUM 4.9 mEq/L (3.5-5.2); SODIUM 136 mEq/L (134-144)
--- NOTE | 2017-08-04 14:49 | HOSPPROG ---
Hospitalist Progress Note Assessment/Plan: 81 yo M w , pulm htn here w likely cardiac syncope, nasal and dens fx dens fx: hard collar neurosurgery follow up to be scheduled for 08/18 repeat films confirm; improved alignment : per EMERY morgan minimally changed on echo and not responsible for syncope syncope: probably 2/2 pulm htn/MV acidosis: resolved AF: continue BB warfarin on hold given elevated INR pulm htn: 2.2 L heart valvular disease dispo: inpt will need some inpt stay inpt rehab consult placed (trauma patient) Subjective: working w PT. tele: no VT (interp by me) Objective: Vital Signs Temp Pulse Resp BP Pulse Ox 36.6 C 65 16 168/73 H 100 08/04/17 11:28 08/04/17 11:28 08/04/17 11:28 08/04/17 11:28 08/04/17 11:28 Laboratory Results 08/03/17 06:25 08/04/17 13:47 08/03/17 08/04/17 08/05/17 05:59 05:59 05:59 Intake Total 1930 980 Output Total 460 Balance 1470 980 PT 38.2 SEC (12.0-15.0) H 08/04/17 03:37 INR 3.81 (0.83-1.16) H 08/04/17 03:37 - Physical Exam Constitutional: no apparent distress, appears nourished Eyes: PERRL, anicteric sclera Ears, Nose, Mouth, Throat: other (hard collar, facial bruising) Cardiovascular: regular rate and rhythym, no murmur, rub, or gallop Respiratory: no respiratory distress, no rales or rhonchi Gastrointestinal: normoactive bowel sounds Genitourinary: No bentley in urethra Skin: warm, normal color Musculoskeletal: full muscle strength, no muscle tenderness Neurologic: AAOx3 Psychiatric: interacting appropriately ICD10 Worksheet Patient Problems: Problems Problem Status Onset Atrial fibrillation Acute Closed C2 fracture Acute Forehead laceration Acute Syncope Acute Acute ischemic stroke Acute Occlusion of left internal carotid artery Acute PVD (peripheral vascular disease) Acute Ventricular tachycardia Acute
--- NOTE | 2017-08-04 17:05 | ASMTCASEMG ---
Living Arrangements What is your living Answers: With Spouse arrangement? Who do you live with? Type Of Residence What kind of residence do Answers: House you live in? Discharge Plan Comments Coordination Status Comments Notes: Patient has a hx of AFIB, coronary artery disease, aortic stenosis, moderate mitral valve regurgitation and recently had a right heart catheterization on 05/13/17. Patient was admitted 07-31-17 after a syncopal episode at home yesterday where he struck his head which may have resulted in a C2 fracture and a small epidural hematoma at the level of C1. PT/OT/SPL/INPT REHAB have been ordered. Awaiting therapies to determine D/C needs. CM will follow. Date Signed: 08/01/2017 12:53 PM Electronically Signed By:Tere Alonos
--- NOTE | 2017-08-04 17:06 | ASMTCMCOM ---
CM Note CM Note Notes: OT is recommending inpatient rehab. Awaiting the other therapies recommendations. CM will follow. Date Signed: 08/02/2017 12:10 PM Electronically Signed By:Tere lAonso
--- NOTE | 2017-08-04 17:08 | ASMTCMCOM ---
CM Note CM Note Notes: Spoke with patient, and his with PT and RN. Patient is adament about returning home does not want to go to a SNF/Rehab. Talked with them about [facility] being Rehab only. Therapy Notes reflect possible in-pt rehab. In-pt would be better for coming from [facility]. Will learn more Saturday through Admissions. Date Signed: 08/04/2017 02:04 PM Electronically Signed By:Cheryl Diaz
[2017-08-04] MEDS: ATORVASTATIN CALCIUM 40 MG TAB PO SCH (17:47)
[2017-08-04] MEDS: DONEPEZIL HCL 5 MG TAB PO SCH (20:56)
[2017-08-04] MEDS: GABAPENTIN 300 MG CAP PO SCH (20:56)
[2017-08-04] MEDS: traZODone 50 MG TAB PO SCH (20:56)
[2017-08-05] MEDS: METOPROLOL TARTRATE 25 MG TAB PO SCH ×2 (04:48→17:01)
[2017-08-05] MEDS: ACETAMINOPHEN 325 MG TAB PO SCH ×3 (04:48→17:00)
[2017-08-05 05:04] LABS: INR 2.05 (0.83-1.16); PROTIME(PATIENT) 23.3 SEC (12.0-15.0)
[2017-08-05 05:06] LABS: ANION GAP 8 mEq/L (8-16); CALCIUM 9.3 mg/dL (8.5-10.4); CARBON DIOXIDE 23 mEq/l (22-31); CHLORIDE 104 mEq/L (97-110); CREATININE 0.8 mg/dL (0.7-1.3); GLOMERULAR FILTRATION RATE > 60; GLUCOSE 86 mg/dL (70-100); POTASSIUM 4.6 mEq/L (3.5-5.2); SODIUM 135 mEq/L (134-144)
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
[2017-08-05] MEDS: oxyCODONE IR 5 MG TAB PO PRN ×2 (09:34→14:20)
[2017-08-05] MEDS: POLYETHYLENE GLYCOL 3350 17 GM PKT PO SCH (09:35)
[2017-08-05] MEDS: CLOPIDOGREL BISULFATE 75 MG TAB PO SCH (09:35)
[2017-08-05] MEDS: FAMOTIDINE 20 MG TAB PO SCH (09:35)
[2017-08-05] MEDS: FERROUS SULFATE 140 MG TAB.ER PO SCH (09:35)
[2017-08-05] MEDS: FENOFIBRATE 145 MG TAB PO SCH (09:35)
--- NOTE | 2017-08-05 11:22 | ASMTCMCOM ---
CM Note CM Note Notes: Met w/patient and . Notified both that Inpatient Rehab declined patient. Discussed SNF rehab options. Pt expresses "extreme opposition" to placement in SNF rehab. Feels MD's recommend it for everyone, that rehab facilities keep patients for the money, feels his is more than capable to perform all therapies for him at home. Pt dismisses concerns re: falling, balance or medical conditions that require custodial care. Pt had some difficulties following the conversation including difficulty recalling prior morning meeting with case management. expressed that pt has "anger issues" since his stroke a year ago and that she is unable to care for him at home at this time. She prefers he spend time at SNF Rehab. She feels pt is receptive to Dr. Ramirez and his advice. Pt did agree to "play the game" and allow for referrals to be sent to [facility] in [place] and [facility] in [place] but remains opposed to placement. Case Management contacted [facility] for possible initiation of home RN and PT if pt continues to refuse SNF. Case Management d/c poc: SNF vs Home Care depending on patient consent. Case Management to follow. Date Signed: 08/05/2017 11:21 AM Electronically Signed By:Amelia Steel
[2017-08-05 13:06] VITALS: BP 136/75; PULSE 77; RESP 17; TEMP 97.9; O2SAT 96
[2017-08-05 14:28] LABS: ANTINUCLEAR ANTIBODIES SCREEN 1.13 UNITS (<=1.00)
--- NOTE | 2017-08-05 14:44 | PDIAF ---
- Diagnosis Code Status: Full Code - Medication Management Discharge Medications: Medications to Continue on Transfer Clopidogrel Bisulfate [Plavix (*)] 75 mg PO DAILY 06/25/13 [Last Taken 07/31/17] Ranitidine HCl [Ranitidine HCl 150 mg] 150 mg PO BID 06/25/13 [Last Taken ] Atorvastatin Calcium [Lipitor 80 mg] 80 mg PO DAILY@18 11/05/16 [Last Taken 04/10] Ferrous Sulfate [Slow Fe 140 MG (*)] 140 mg PO DAILY 11/05/16 [Last Taken ] Warfarin Sodium [Coumadin 2.5MG (*)] 2.5 mg PO SUMOTUWETHFR@16 11/05/16 [Last Taken 07/31/17] Metoprolol Tartrate [Lopressor 25 mg (*)] 25 mg PO DAILY@06 #0 tab 11/10/16 [ Last Taken 07/31/17] Donepezil HCl [Aricept 5 MG (*)] 5 mg PO HS 05/10/17 [Last Taken 07/30/17] Warfarin Sodium [Coumadin 5MG (*)] 5 mg PO SA@16 05/10/17 [Last Taken 07/27/17] Metoprolol Tartrate [Lopressor 25 mg (*)] 12.5 mg PO DAILY@18 #0 tab 05/14/17 [ Last Taken 07/30/17] Acetaminophen [Tylenol 325mg (*)] 325 mg PO DAILY PRN 07/31/17 [Last Taken Unknown] Fenofibrate [Tricor 145 mg (*)] 145 mg PO DAILY 07/31/17 [Last Taken 07/31/17] Furosemide [Lasix 20 MG (*)] 20 mg PO DAILY 07/31/17 [Last Taken 07/31/17] Gabapentin [Neurontin 300 MG (*)] 300 mg PO HS 07/31/17 [Last Taken 07/30/17] oxyCODONE IR [Oxycodone Ir (*)] 5 mg PO Q4HRS PRN #20 tab 08/05/17 [Last Taken Unknown] traZODone [traZODONE 50MG (*)] 50 mg PO HS #30 tab 08/05/17 [Last Taken Unknown] Discharge Medications: Refer to the Discharge Home Medication list for PRN reason. 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
[2017-08-05] MEDS: ATORVASTATIN CALCIUM 40 MG TAB PO SCH (17:00)
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
== END 2017-08-05 17:26 | DRG 552 ==
LOC: EDUNIT# → F2N 23:02 → F2W 08-03 22:45
PROVIDERS: ADMIT Student in an Organized Health Care Education/Training Program; ATTEND Surgery
PROC: 0HQ1XZZ Repair Face Skin, External Approach (ICD-10-PCS; principal; 2017-07-31)
DX: S12.100A Unspecified displaced fracture of second cervical vertebra, initial encounter for closed fracture (principal); S01.81XA Laceration without foreign body of other part of head, initial encounter; I48.91 Unspecified atrial fibrillation; Z79.01 Long term (current) use of anticoagulants; Z87.891 Personal history of nicotine dependence; I25.10 Atherosclerotic heart disease of native coronary artery without angina pectoris; S02.2XXA Fracture of nasal bones, initial encounter for closed fracture; S12.112A Nondisplaced Type II dens fracture, initial encounter for closed fracture; W18.39XA Other fall on same level, initial encounter; Y92.019 Unspecified place in single-family (private) house as the place of occurrence of the external cause; I73.9 Peripheral vascular disease, unspecified; J98.4 Other disorders of lung; I27.2 Other secondary pulmonary hypertension; I10 Essential (primary) hypertension; E78.5 Hyperlipidemia, unspecified; Z95.810 Presence of automatic (implantable) cardiac defibrillator; Z86.73 Personal history of transient ischemic attack (TIA), and cerebral infarction without residual deficits
CPT/HCPCS: 92507-GN; 92523-GN; 97116-GP; 97161-GP; 97166-GO; 97530-GO; 97530-GP; 97535-GO; G8978-GP-CJ; G8979-GP-CI; G8987-GO-CK; G8988-GO-CI; G9168-GN-CK; G9169-GN-CI; J0360; J2405

== ENCOUNTER 2017-10-11 08:35 | Day surgery (SDC) | payer OTHER ==
[2017-10-11] MEDS ORDERED: DOBUTamine 500 MG in D5W 250 ML IV ONE (10:00)
--- NOTE | 2017-10-11 10:41 | PDHPUP ---
History & Physical Update H&P update statement: This history and physical update is based on an assessment of the patient which was completed after admission or registration (within 24 hours), but prior to the surgery/procedure. H&P update: H&P reviewed & patient examined, no change in patient's condition since H&P completed
== END 2017-10-11 11:30 | disposition home or self-care (01) ==
LOC: FCATH 08:35 → EDSTATUS 10:30 → FCATH 11:30
PROVIDERS: ATTEND Internal Medicine Cardiovascular Disease
DX: I35.0 Nonrheumatic aortic (valve) stenosis (principal); I48.91 Unspecified atrial fibrillation
CPT/HCPCS: J1250

== ENCOUNTER 2017-11-05 05:59 | Inpatient (IN) | payer OTHER ==
[2017-11-05] MEDS ORDERED: ASPIRIN EC 325 MG TAB PO ONE ×2 (06:13→06:44)
[2017-11-05] MEDS ORDERED: FAMOTIDINE 20 MG TAB PO ONE (06:13)
[2017-11-05] MEDS ORDERED: NS 1,000 ML IV ONE (06:13)
[2017-11-05] MEDS ORDERED: DIAZEPAM 5 MG TAB PO ONE (06:13)
[2017-11-05] MEDS ORDERED: diphenhydrAMINE 25 MG CAP PO ONE ×2 (06:13→06:43)
--- NOTE | 2017-11-05 06:31 | CPEKG ---
Heart Rate: 66 RR Interval: 909 QRSD Interval: 160 QT Interval: 540 QTC Interval: 566 QRS [place]: -55 T Wave [place]: 133 EKG Severity - ABNORMAL ECG - EKG Impression: ATRIAL FIBRILLATION, V-RATE 54-78 EKG Impression: MULTIFORM VENTRICULAR PREMATURE COMPLEXES EKG Impression: LEFT BUNDLE BRANCH BLOCK Electronically Signed By: Serena Bob 05-Nov-2017 06:58:09
[2017-11-05] MEDS ORDERED: FAMOTIDINE 20 MG TAB ONE (06:44)
[2017-11-05] MEDS ORDERED: DIAZEPAM 5 MG TAB ONE (06:44)
[2017-11-05 06:47] LABS: ADD DIFF? NO; ADD MORPH? NO; ADD SCAN? NO; ATYPICAL LYMPHOCYTE FLAG 0 (0-99); FRAGMENT RBC FLAG 0 (0-99); HEMATOCRIT 37.2 % (40.0-51.0); HEMOGLOBIN 12.3 g/dL (13.7-17.5); LEFT SHIFT FLG 0 (0-99); LIPEMIA HEMOLYSIS FLAG 80 (0-99); MEAN CELL HEMOGLOBIN 33.5 pg (27.9-34.1); MEAN CELL HEMOGLOBIN CONCENTR. 33.1 g/dL (32.4-36.7); MEAN CELL VOLUME 101.4 fL (81.5-99.8); MEAN PLATELET VOLUME 9.8 fL (8.7-11.7); PLATELET CLUMPS FLAG 0 (0-99); PLATELET COUNT 121 10^3/uL (150-400); RED BLOOD CELL COUNT 3.67 10^6/uL (4.40-6.38); RED CELL DISTRIBUTION WIDTH 13.6 % (11.5-15.2)
--- NOTE | 2017-11-05 06:50 | PDPROPOC ---
Sedation Plan of Care Sedation Plan of Care: mental status noted, patient educated of risks, benefits , alternatives, patient can tolerate sedation ASA Classification: ASA 2 Planned drugs: fentanyl, midazolam Mallampati Score: Class 2 Mallampati Reference Image: Patient passed 3-3-2 rule?: Yes
[2017-11-05] MEDS ORDERED: LIDOCAINE 1% 300 MG/30 ML SDV ONE (07:01)
[2017-11-05] MEDS ORDERED: IOPAMIDOL (ISOVUE-370) 150 ML BTL IV ONE (07:02)
[2017-11-05] MEDS ORDERED: MIDAZOLAM 2 MG/2 ML VIAL ONE (07:02)
[2017-11-05] MEDS ORDERED: HEPARIN 10,000 UNIT/10 ML MDV ONE (07:02)
[2017-11-05] MEDS ORDERED: fentaNYL 100 MCG/2 ML INJ ONE (07:02)
[2017-11-05 07:04] LABS: INR 1.69 (0.83-1.16)
[2017-11-05 07:24] LABS: ANION GAP 12 mEq/L (8-16); CALCIUM 9.1 mg/dL (8.5-10.4); CARBON DIOXIDE 23 mEq/l (22-31); CHLORIDE 110 mEq/L (97-110); CHOLESTEROL 103 mg/dL (140-220); CHOLESTEROL/HDL RATIO 2.24 RATIO (1.00-4.97); CREATININE 0.8 mg/dL (0.7-1.3); GLOMERULAR FILTRATION RATE > 60; GLUCOSE 81 mg/dL (70-100); HIGH DENSITY LIPOPROTEIN 46 mg/dL (40-65); LDL/HDL RATIO 1.07 RATIO (1.00-3.64); LOW DENSITY LIPOPROTEIN 49 mg/dL (80-100); MAGNESIUM 1.5 mg/dL (1.6-2.3); NON-HIGH DENSITY LIPOPROTEIN 57 mg/dL (90-129); POTASSIUM 3.6 mEq/L (3.5-5.2); SODIUM 145 mEq/L (134-144); TRIGLYCERIDE 42 mg/dL (40-150); VERY LOW DENSITY LIPOPROTEINS 8 mg/dL (8-25)
[2017-11-05] MEDS ORDERED: hydrALAZINE 20 MG/ML VIAL ONE (08:06)
[2017-11-05] MEDS ORDERED: TEMAZEPAM 15 MG CAP PO PRN (08:14)
[2017-11-05] MEDS ORDERED: NITROGLYCERIN 0.4 MG BTL SL PRN (08:14)
[2017-11-05] MEDS ORDERED: ONDANSETRON 4 MG/2 ML VIAL IVP PRN (08:14)
[2017-11-05] MEDS ORDERED: HYDROCODONE/APAP 5/325 TAB PO PRN (08:14)
[2017-11-05] MEDS ORDERED: ATROPINE SULFATE 1 MG/10 ML SYR IVP PRN (08:14)
[2017-11-05] MEDS ORDERED: OXYCODONE/APAP 5/325 TAB PO PRN (08:14)
[2017-11-05] MEDS ORDERED: LORazepam 2 MG/ML INJ IVP PRN (08:14)
--- NOTE | 2017-11-05 08:53 | CPEKG ---
Heart Rate: 65 RR Interval: 923 QRSD Interval: 170 QT Interval: 540 QTC Interval: 562 QRS [place]: -45 T Wave [place]: 150 EKG Severity - ABNORMAL ECG - EKG Impression: ATRIAL FIBRILLATION, V-RATE 53-81 EKG Impression: LEFT BUNDLE BRANCH BLOCK Electronically Signed By: Serena Bob 05-Nov-2017 12:48:28
--- NOTE | 2017-11-05 09:00 | CPIP ---
[f rep st] INVASIVE CARDIAC PROCEDURE DATE OF PROCEDURE: 11/05/2017 INDICATIONS FOR PROCEDURE: Low gradient, low output severe aortic stenosis. PROCEDURES: 1. Nonselective left groin sheathogram. 2. Abdominal aortogram. 3. Left subclavian angiography. 4. Left ventriculogram. 5. Balloon aortic valvuloplasty-a 20 x 60 balloon. BRIEF HISTORY: This is an 81-year-old male with history of known severe aortic stenosis, however the patient's underlying gradients have been moderate. The patient had a thorough evaluation by his [facility] hims manager, Dr. Ramirez as an outpatient, which included a previous stress echo which clearly d ocumented significantly increased gradients across the aortic valve which could be an effusion. Give n the patient's worsening dyspnea on exertion which has been progressing over the last 6 months, the patient has been consented for balloon aortic valvuloplasty as a temporizing procedure to evaluate if the patient's symptomatically will improve enough to possibly require TAVR, as he has already been d eemed to be a high-risk surgical candidate by Dr. Dieter Ruiz. After informed consent, patient brought to [facility] where the left groin was prepped and draped in sterile fashion. After lidocaine, a short 8-Latvian sheath in the left common femoral a rtery verified angiographically. This revealed heavily calcified diseased distal left PAN SHOVER going to t he profunda and SFA. The proximal PAN SHOVER and distal external iliac artery actually appeared to be quite patent. The patient was administered 3000 heparin IV. Through the 8-Latvian sheath, an AL1 catheter was advanced. With a straight stiff Glidewire, the LV was crossed with this equipment, switched out for a pigtail catheter. Simultaneous pressures were then obtained between the LV and the aorta whic h showed a mean gradient difference of approximately 24 mmHg. Again, the patient does have a history of low-gradient, low-output, a severe , thus we decided to proceed with a balloon aortic valvulopl asty at this point. The pigtail catheter was removed over an Amplatz superstiff wire. Balloon aorti c valvuloplasty commenced with a 20 x 60 balloon with 4 sequential inflations. After performed, the pigtail catheter was placed back into the LV, simultaneous pressures were then obtained which showed a mean gradient difference of 2 mmHg for a net reduction of 22 mmHg. The pigtail catheter was then p ulled back to the descending abdomen where abdominal aortogram was obtained, which showed a mildly an eurysmal abdominal aorta with initially with a mildly calcified common iliac arteries bilaterally. T he external iliac arteries bilaterally appeared to be widely patent. Of note, the right PAN SHOVER had what appeared to be a patch repair which was widely patent. The left PAN SHOVER had the aforementioned distal d isease. At this time, the pigtail catheter was removed over an 0.035 wire. A JR4 catheter was then advanced and placed in the left subclavian artery. Angiography of the left subclavian artery showed a widely patent left subclavian artery; however, there were some moderate calcifications at the proxi mal portion of the left subclavian artery. Distally the subclavian artery appeared to be widely fam nt. Of note, there was also what appeared to be stents that were previously placed in the left commo n carotid artery as well as the proximal portion of the innominate artery as well. The catheter was removed over an 0.035 wire. The groin was sutured in place. Of note, the sheath had been upsized fr om an 8-Latvian short sheath to an 8-Latvian long sheath to overcome tortuosity in the common iliac art laura. The patient tolerated procedure well with no complications. IMPRESSION: 1. Successful balloon aortic valvuloplasty reducing a mean gradient difference of 24 mmHg to 2 mmHg. 2. Severe peripheral arterial disease as documented in the aortoiliac area as well as the left subcl leonor artery. PLAN: We will admit the patient overnight. If clinically stable, will be discharged within 24 hours . If the patient has significant clinical improvement, we will then have to discuss with the patient about high-risk TAVR. Given the fact that his access is quite poor, most likely the patient would r equire a cutdown of 1 of the femoral sites with possible endarterectomy as well for the introduction of the catheters. We will discuss this with the TAVR team, if the patient should symptomatically imp rove. /[id number]/MODL
[2017-11-05] MEDS ORDERED: ACETAMINOPHEN 325 MG TAB ONE (11:40)
[2017-11-05] MEDS: FERROUS SULFATE 140 MG TAB.ER PO SCH (14:16)
[2017-11-05] MEDS: CLOPIDOGREL BISULFATE 75 MG TAB PO SCH (14:16)
[2017-11-05] MEDS: FENOFIBRATE 145 MG TAB PO SCH (14:16)
[2017-11-05] MEDS: FAMOTIDINE 20 MG TAB PO SCH ×2 (14:16→22:37)
[2017-11-05] MEDS: WARFARIN SODIUM 2.5 MG TAB PO SCH ×2 (14:17→18:16)
[2017-11-05] MEDS: ATORVASTATIN CALCIUM 40 MG TAB PO SCH (14:30)
[2017-11-05] MEDS: METOPROLOL TARTRATE 25 MG TAB PO SCH (18:15)
[2017-11-05] MEDS: GABAPENTIN 300 MG CAP PO SCH (22:37)
[2017-11-05] MEDS: DONEPEZIL HCL 5 MG TAB PO SCH (22:37)
[2017-11-06 05:20] LABS: ADD DIFF? NO; ADD MORPH? NO; ADD SCAN? NO; ATYPICAL LYMPHOCYTE FLAG 10 (0-99); FRAGMENT RBC FLAG 0 (0-99); HEMATOCRIT 32.7 % (40.0-51.0); HEMOGLOBIN 10.8 g/dL (13.7-17.5); LEFT SHIFT FLG 0 (0-99); LIPEMIA HEMOLYSIS FLAG 80 (0-99); MEAN CELL HEMOGLOBIN 33.3 pg (27.9-34.1); MEAN CELL VOLUME 100.9 fL (81.5-99.8); MEAN PLATELET VOLUME 10.8 fL (8.7-11.7); PLATELET CLUMPS FLAG 0 (0-99); PLATELET COUNT 107 10^3/uL (150-400); RED BLOOD CELL COUNT 3.24 10^6/uL (4.40-6.38); RED CELL DISTRIBUTION WIDTH 13.7 % (11.5-15.2)
[2017-11-06 05:32] LABS: ANION GAP 8 mEq/L (8-16); CARBON DIOXIDE 26 mEq/l (22-31); CHLORIDE 110 mEq/L (97-110); CREATININE 0.9 mg/dL (0.7-1.3); GLOMERULAR FILTRATION RATE > 60; GLUCOSE 81 mg/dL (70-100); POTASSIUM 4.2 mEq/L (3.5-5.2); SODIUM 144 mEq/L (134-144)
--- NOTE | 2017-11-06 06:36 | PDCARPN ---
Cardiology Progress Note Chief Complaint: SOB Assessment/Plan: Assessment: s/p BAV Plan: 11/06/17 06:34 Doing well less SOB check CTAs today for TAVR protocol d/c home after CTs done Subjective: doing well Reviewed/Discussed With: other (RN) Time Spent With Patient: 25 min Objective: Vital Signs (8 Hrs) Temp Pulse Resp BP Pulse Ox 11/06/17 03:57 36.5 C 61 17 149/63 H 90 L 11/05/17 23:40 36.5 C 60 12 159/57 H 94 Intake/Output (24 Hrs) 11/05/17 11/06/17 11/07/17 05:59 05:59 05:59 Intake Total 1350 Output Total 550 Balance 800 Intake: Oral (ml) 850 IV Intake (ml) 500 Output: Urine (ml) 550 Toilet 550 Other: Weight 73.1 kg Intake Quantity Yes Sufficient Number of Voids Toilet 1 Result Diagrams: 11/06/17 03:45 11/06/17 03:45 - Physical Exam Constitutional: healthy appearing Eyes: PERRL Ears, Nose, Mouth, Throat: moist mucous membranes Cardiovascular: irregularly irregular Peripheral Pulses: 1+: femoral (R), 2+: femoral (L) Respiratory: clear to auscultate bilat Gastrointestinal: normoactive bowel sounds Skin: no rashes Musculoskeletal: no muscular tenderness Neurologic: AAOx3 Psychiatric: cooperative ICD10 Worksheet Patient Problems: Problems Problem Status Onset Acute ischemic stroke Acute Atrial fibrillation Acute Closed C2 fracture Acute Forehead laceration Acute Occlusion of left internal carotid artery Acute PVD (peripheral vascular disease) Acute Syncope Acute Ventricular tachycardia Acute
[2017-11-06] MEDS: FERROUS SULFATE 140 MG TAB.ER PO SCH (08:00)
[2017-11-06] MEDS: CLOPIDOGREL BISULFATE 75 MG TAB PO SCH (08:00)
[2017-11-06] MEDS: FENOFIBRATE 145 MG TAB PO SCH (08:00)
[2017-11-06] MEDS: FAMOTIDINE 20 MG TAB PO SCH ×2 (08:00→22:44)
[2017-11-06] MEDS: ATORVASTATIN CALCIUM 40 MG TAB PO SCH (08:01)
[2017-11-06] MEDS ORDERED: IOPAMIDOL (ISOVUE 370) 100 ML BTL IV ONE (11:17)
--- NOTE | 2017-11-06 11:19 | ASMTCMCOM ---
CM Note CM Note Notes: 11/06/2017 Case Management Note Discussed case with MATTHEW Cutler. Pt was assessed for d/c needs prior to TAVR procedure. There are no case management d/c needs identified post procedure. Pt has strong family support. Follow up appointments have been schedules by Jillian Cutler. Case Management d/c poc: Home with family with follow up as directed. Case Management available if needs change. Date Signed: 11/06/2017 11:18 AM Electronically Signed By:Amelia Steel RN
[2017-11-06] MEDS: METOPROLOL TARTRATE 25 MG TAB PO SCH ×2 (12:10→18:26)
--- NOTE | 2017-11-06 15:18 | GDS ---
[f rep st] DISCHARGE SUMMARY ADMISSION DIAGNOSES: 1. Shortness of breath. 2. Chronic atrial fibrillation. 3. Coronary artery disease. 4. Pulmonary hypertension. 5. Severe aortic stenosis. 6. Peripheral vascular disease. 7. Hypertension. 8. Sick sinus syndrome with remote pacemaker implantation. DISCHARGE DIAGNOSES: 1. Severe aortic stenosis. 2. Status post valvuloplasty. 3. Coronary artery disease. 4. Chronic atrial fibrillation. 5. Peripheral artery disease. 6. Pulmonary hypertension. 7. Sick sinus syndrome with remote pacemaker implantation. PROCEDURES PERFORMED DURING HOSPITALIZATION: 1. Electrocardiogram. 2. Nonselective left groin sheathogram. 3. Abdominal aortogram. 4. Left subclavian angiogram. 5. Left ventriculogram. 6. Balloon aortic valvuloplasty. 7. Abdominal CT. 8. Chest and thoracic CT. 9. Carotid Doppler's. BRIEF HISTORY: Please see Dr. Torres's note dated October 28, 2017, to be used as a History and Phy sical. The patient is an 81-year-old male, reporting increased worsening of dyspnea on exertion over the last few months. This was found concerning that this may be pulmonary issues versus his valve d isease. He had seen Dr. Torres in office, and felt that before considering valve replacement surger y, he should undergo aortic valvuloplasty to determine if it truly was the cause of his symptoms. Pr aubrey was scheduled. HOSPITAL COURSE: Patient was admitted through CVC, prepped for procedure, and taken to the cardiac c atheterization lab. There, Dr. Torres performed left common femoral artery sheathogram which reveale d heavily calcified disease distal to the left CFF, CFSA going into the profunda, and the SFA, proxim al to the PARALEGALS and distal external iliac, artery was patent. A balloon aortic valvuloplasty was done at this time, with a 20 x 60 balloon with 4 sequential inflations. After performing the procedure, i t was shown that the mean gradient across the valve was 2 mmHg, reducing the prior preprocedural janice urement of 22 mmHg. Next, an abdominal aortic angiogram was done, which showed mild aneurysmal abdom inal aorta with initially mildly calcified common iliac arteries bilaterally. The external iliac art laura bilaterally appeared to be widely patent. Next, a catheter was advanced into position into the left subclavian artery, and an angiogram was don e at that time, showing a widely patent left subclavian artery; but there was some moderate calcifica tion at the proximal portion of the left subclavian artery. Distal subclavian artery appeared to be widely patent. There appeared to be stents that were previously placed in the left common carotid ar werner as well as the proximal portion of the innominate artery. The groin was Perclose closed, and pa tient was taken back to the CVC, and ultimately to the PCU overnight. There he remained stable all n ight. Continuous monitor technician shows sinus rhythm. He denies any chest pain or shortness of breat h. He actually reports his dyspnea on exertion has significantly improved after walking around the u nit since his procedure. He had no bleeding issues. PHYSICAL EXAMINATION DONE TODAY: GENERAL APPEARANCE: Medium build, elderly male. He is alert and o riented to person, place, time, and situation. Appears to be under no acute distress. VITAL SIGNS: Current blood pressure of 131/79, heart rate of 75, respirations 18, saturating 99% on room air, and temperature of 36.6 degrees Celsius. HEENT: Head is normocephalic. Lips and tongue are pink and m oist with no signs of cyanosis. Conjunctivae pink. NECK: Trachea is midline. Patient was noted wi th healed incisions on both right and left-sides of neck over carotid arteries where he has had previ ous carotid enterectomy. No auscultated bruit noted on either side. No jugular vein distention. RE SPIRATORY: Lungs clear to auscultation. No rhonchi, rales or wheezes. No accessory muscles use. N o intercostal muscle retraction noted. CARDIAC: Irregular rate, irregular rhythm. S1, S2. A 2/6 s ystolic murmur noted along the left upper chest near the sternal border. ABDOMEN: Soft, nontender. Bowel sounds x4 quadrants. No organomegaly. No palpable masses. SKIN: Herreid, warm, and dry with n o cyanosis, no clubbing, and no peripheral edema. VASCULAR: +1 carotids bilateral, +2 radials bilate ral, +1 posterior tibial pulses bilateral. Catheter insertion site and left groin site, no redness, swelling, or drainage noted. Mild ecchymosis with quarter-sized hematoma over insertion site. No au scultated bruit. Distal pulses of his left lower extremity, as mentioned above. LABORATORY STUDIES: Laboratory studies drawn today show WBC of 3.23, hemoglobin of 10.8, hematocrit of 32.7, platelet count of 107. Sodium 144, potassium 4.2, chloride 110, CO2 26, BUN 24, creatinine 0.9, glucose 81, calcium 9.1. Noted fasting lipid panel done yesterday: Triglycerides 42, total cho lesterol 103, LDL 49, HDL 46. STUDIES: Cardiac catheterization and valvuloplasty as mentioned above. Patient did undergo abdomina l CTA and chest CTA today; results are currently pending. He is currently having a carotid artery st udy done, results pending. DISCHARGE DISPOSITION: Patient will be discharged home in stable condition. He is under activity re strictions of not lifting more than 10 pounds for the next week and no strenuous activity for the nex t 2 weeks. DISCHARGE MEDICATIONS: Please see discharge medication reconciliation sheet. Note, patient has been resumed on home warfarin dosage. DISCHARGE INSTRUCTIONS: Post valvuloplasty discharge instructions gone over with the patient and his , including monitoring for signs of infections, bleeding precautions, activity restrictions, and bathing precautions. The patient has a followup appointment on November [address] Torres. He will also follow up with [facility] that day to have repeated INR's done. Depending on the resu lts of his CTA's that were done today and carotid studies, potential planning for a TAVR procedure in the near future. At the time of discharge, both patient and his verbalized understanding and h ave no questions or concerns. They have been told that if there are any problems or questions post d ischarge, they are to notify our office or return to the hospital. TOTAL TIME SPENT ON DISCHARGE: Greater than 30 minutes. /[id number]/MODL
[2017-11-06] MEDS ORDERED: THROMBIN (BOVINE) 5,000 UNIT VIAL TP ONE (16:40)
[2017-11-06] MEDS: GABAPENTIN 300 MG CAP PO SCH (22:44)
[2017-11-06] MEDS: DONEPEZIL HCL 5 MG TAB PO SCH (22:44)
[2017-11-07 05:12] LABS: HEMATOCRIT 31.4 % (40.0-51.0); HEMOGLOBIN 10.4 g/dL (13.7-17.5); MEAN CELL HEMOGLOBIN 33.2 pg (27.9-34.1); MEAN CELL HEMOGLOBIN CONCENTR. 33.1 g/dL (32.4-36.7); MEAN CELL VOLUME 100.3 fL (81.5-99.8); RED BLOOD CELL COUNT 3.13 10^6/uL (4.40-6.38); RED CELL DISTRIBUTION WIDTH 13.4 % (11.5-15.2)
[2017-11-07 05:23] LABS: ANION GAP 9 mEq/L (8-16); CARBON DIOXIDE 23 mEq/l (22-31); CHLORIDE 107 mEq/L (97-110); CREATININE 0.8 mg/dL (0.7-1.3); GLOMERULAR FILTRATION RATE > 60; GLUCOSE 84 mg/dL (70-100); POTASSIUM 4.2 mEq/L (3.5-5.2); SODIUM 139 mEq/L (134-144)
[2017-11-07] MEDS: ATORVASTATIN CALCIUM 40 MG TAB PO SCH (08:20)
[2017-11-07] MEDS: FERROUS SULFATE 140 MG TAB.ER PO SCH (08:20)
[2017-11-07] MEDS: METOPROLOL TARTRATE 25 MG TAB PO SCH ×2 (08:20→17:51)
[2017-11-07] MEDS: FENOFIBRATE 145 MG TAB PO SCH (08:20)
[2017-11-07] MEDS: FAMOTIDINE 20 MG TAB PO SCH ×2 (08:20→20:12)
[2017-11-07] MEDS: CLOPIDOGREL BISULFATE 75 MG TAB PO SCH (08:20)
--- NOTE | 2017-11-07 16:26 | PDCARPN ---
Cardiology Progress Note Chief Complaint: Patient reports no pain, states no complaints. Assessment/Plan: Assessment: Patient is 81-year-old male. He has significant history wide that includes CAD , chronic atrial fibrillation coronary artery disease, hypertension, hyperlipidemia, pulmonary hypertension, carotid artery disease status post remote carotid enterectomy, sick sinus syndrome with remote ppm implantation, and severe aortic stenosis. He has been noticing significantly increased shortness of breath. On November 05, he underwent balloon aortic valvuloplasty by Dr. Muñoz. Yesterday, postop day 1, he reported significant improvement in shortness of breath with exertion. As he was preparing be discharge, it was decided for him to undergo CTA of the chest and abdomen and in preparation for possible tab her to be done few weeks. It was noted on testing that he had a pseudoaneurysm in the left groin with some surrounding blood products in the soft tissue. Fortunately, radiology was able to isolate the pseudoaneurysm and do direct thrombin injection. Which appeared to completely thrombosed the aneurysm. Due to pseudoaneurysm, patient's warfarin has been held. Today, patient reports no chest pain, pressure, or symptoms suggesting of ischemia. Reports to continue to have improvement with dyspnea on exertion. He has been up in walking the PCU without difficulties. His underlying rhythm is been atrial fibrillation comma with ventricular paced beats. No other malignant arrhythmias noted. Denies of any pain or tenderness at left groin site. Site ecchymotic comma with 2 finger size hematoma medial to puncture. No auscultated bruits. Normal CMS checks to left lower extremity. Plan: 1. Aortic stenosis: Status post aortic valvuloplasty, reporting improvement in shortness of breath with exertion. Patient will see Dr. Torres and Dr Ruiz in clinic in the next few week to be eval for possible TAVR procedure. 2. CAD: Patient denies of any chest pain or pressure. He has continued home dose of clopidogrel. Continue on home dose of metoprolol. 3. SSS: Patient with history remote ppm 4. Hypertension: BP appears to be well controlled on current doses of metoprolol. 5. Hyperlipidemia: Patient continue on home dose of atorvastatin. 6. Pseudoaneurysm: Status post thrombus injection yesterday, felt by Radiology to have adequate closure. Patient is scheduled for repeated ultrasound to be done this afternoon for repeat evaluation, per radiology's recommendation. 7. Permanent atrial fibrillation: Rate controlled, currently off of warfarin therapy due to pseudoaneurysm. If normal, will resume his in warfarin this evening. Repeat INR in a.m.. 8. DVT prophylaxis: Currently anticoagulation is on hold due to pseudoaneurysm comma resume warfarin therapy tonight. Due to lateness of needing to have repeat ultrasound for evaluation of pseudoaneurysm, and patient does not have a ride home due to his unable to drive past just. We will plan for the patient to stay greater than 2 midnights. Patient to be potentially discharged in a.m.. 11/07/17 16:23 Subjective: Patient denies of any chest pressure, pain, lightheadedness, palpitations, orthopnea, near-syncope, or syncopal events. Reviewed/Discussed With: other (Dr Torres and Dr Florez) Objective: Vital Signs (8 Hrs) Temp Pulse Resp BP Pulse Ox 11/07/17 16:00 36.9 C 55 L 12 176/63 H 96 11/07/17 11:16 36.8 C 56 L 18 168/63 H 96 Intake/Output (24 Hrs) 11/06/17 11/07/17 11/08/17 05:59 05:59 05:59 Intake Total 1350 380 872 Output Total 550 Balance 800 380 872 Intake: Oral (ml) 850 380 872 IV Intake (ml) 500 Output: Urine (ml) 550 Toilet 550 Other: Weight 73.1 kg Intake Quantity Yes Yes Sufficient Number of Voids Toilet 1 2 Result Diagrams: 11/07/17 03:45 11/07/17 03:45 - Physical Exam Constitutional: WDWN, no apparent distress Ears, Nose, Mouth, Throat: moist mucous membranes Cardiovascular: regular rate and rhythm, no rubs, systolic murmur ( 2/6 right upper sternal border.), pulses symmetric bilat, No jugular vein distention Peripheral Pulses: 1+: dorsalis-pedis (R), dorsalis-pedis (L), 2+: carotid (R), carotid (L) Respiratory: clear to auscultate bilat, other ( No rhonchi, rales, or wheezing noted.) Gastrointestinal: normoactive bowel sounds Skin: warm, other ( Left groin site, catheter insertion site, with ecchymoses from puncture down left thigh.), No no edema ( +1 peripheral edema bilateral lower extremities to knees.) Musculoskeletal: no muscular tenderness Neurologic: AAOx3 Psychiatric: cooperative, interactive, following commands, not anxious ICD10 Worksheet Patient Problems: Problems Problem Status Onset Syncope Acute Closed C2 fracture Acute Forehead laceration Acute Atrial fibrillation Acute PVD (peripheral vascular disease) Acute Ventricular tachycardia Acute Occlusion of left internal carotid artery Acute Acute ischemic stroke Acute
[2017-11-07] MEDS: GABAPENTIN 300 MG CAP PO SCH (20:11)
[2017-11-07] MEDS: DONEPEZIL HCL 5 MG TAB PO SCH (20:12)
[2017-11-07] MEDS ORDERED: WARFARIN SODIUM 2.5 MG TAB PO SCH (21:00)
[2017-11-08 05:27] LABS: HEMATOCRIT 30.7 % (40.0-51.0); HEMOGLOBIN 10.5 g/dL (13.7-17.5); MEAN CELL HEMOGLOBIN 34.1 pg (27.9-34.1); MEAN CELL HEMOGLOBIN CONCENTR. 34.2 g/dL (32.4-36.7); MEAN CELL VOLUME 99.7 fL (81.5-99.8); RED BLOOD CELL COUNT 3.08 10^6/uL (4.40-6.38); RED CELL DISTRIBUTION WIDTH 13.7 % (11.5-15.2)
[2017-11-08 05:45] LABS: INR 1.54 (0.83-1.16); PROTIME(PATIENT) 18.6 SEC (12.0-15.0)
--- NOTE | 2017-11-08 07:26 | PDCARPN ---
Cardiology Progress Note Chief Complaint: SOB Assessment/Plan: Assessment: s/p BAV Plan: 11/06/17 06:34 Doing well less SOB check CTAs today for TAVR protocol d/c home after CTs done 11/08/17 07:24 Stable s/p left groin pseudoaneursym injection with thrombin no residual groin issues d/c home f/u next week If pt has noticeable improvement in his SOB, we will move forward with a TAVR evaluation Subjective: no complaints Reviewed/Discussed With: other (RN) Time Spent With Patient: 25 min Objective: Vital Signs (8 Hrs) Temp Pulse Resp BP Pulse Ox 11/08/17 04:00 36.8 C 64 16 111/52 L 90 L 11/07/17 23:37 36.6 C 58 L 16 162/61 H 93 Intake/Output (24 Hrs) 11/07/17 11/08/17 11/09/17 05:59 05:59 05:59 Intake Total 380 2072 Output Total 2 Balance 380 2070 Intake: Oral (ml) 380 2072 Output: Urine (ml) 2 Toilet 2 Other: Intake Quantity Yes Sufficient Number of Voids Toilet 2 Result Diagrams: 11/08/17 03:50 11/07/17 03:45 - Physical Exam Constitutional: healthy appearing Eyes: PERRL Ears, Nose, Mouth, Throat: moist mucous membranes Cardiovascular: irregularly irregular Peripheral Pulses: 1+: femoral (R), femoral (L) Respiratory: clear to auscultate bilat Gastrointestinal: normoactive bowel sounds Genitourinary: no suprapubic tenderness Skin: no rashes Musculoskeletal: no muscular tenderness Neurologic: AAOx3 Psychiatric: cooperative ICD10 Worksheet Patient Problems: Problems Problem Status Onset Acute ischemic stroke Acute Atrial fibrillation Acute Closed C2 fracture Acute Forehead laceration Acute Occlusion of left internal carotid artery Acute PVD (peripheral vascular disease) Acute Syncope Acute Ventricular tachycardia Acute
[2017-11-08] MEDS: FERROUS SULFATE 140 MG TAB.ER PO SCH (07:52)
[2017-11-08] MEDS: FENOFIBRATE 145 MG TAB PO SCH (07:52)
[2017-11-08] MEDS: ATORVASTATIN CALCIUM 40 MG TAB PO SCH (07:52)
[2017-11-08] MEDS: CLOPIDOGREL BISULFATE 75 MG TAB PO SCH (07:52)
[2017-11-08] MEDS: FAMOTIDINE 20 MG TAB PO SCH (07:52)
[2017-11-08] MEDS: METOPROLOL TARTRATE 25 MG TAB PO SCH (07:53)
[2017-11-08 08:00] VITALS: BP 186/80
[2017-11-08 08:01] VITALS: PULSE 70; RESP 14; TEMP 98.5; O2SAT 94
--- NOTE | 2017-11-08 09:21 | ASMTCMCOM ---
CM Note CM Note Notes: Patient medically cleared for discharge/ No needs at this time. CM available should needs arise. Date Signed: 11/08/2017 09:21 AM Electronically Signed By:Valery Solis RN
--- NOTE | 2017-11-08 09:50 | GDS ---
[f rep st] DISCHARGE SUMMARY Please see prior discharge summary dated 11/06/2017. BRIEFLY HISTORY: This is an addendum to that note. The patient was kept in after discharge summary was done, when CTA of the abdomen showed a pseudoaneurysm of his left femoral artery. Radiology was consulted on the , in which they were able to isolate the pseudoaneurysm and inject thrombus. He did have a repeated Doppler study done on the , in which it showed the pseudoaneurysm had been c ompletely thrombosed. The patient reporting no adverse reactions to the injection. He has been up and walking the unit wit hout difficulties. Continues to report no significant shortness of breath. Continuous cardiac monit oring shows that his underlying rhythm is atrial fibrillation with ventricular paced beat. He occasi onally has premature ventricular contraction. PHYSICAL EXAMINATION: Done today. GENERAL APPEARANCE: Elderly male, medium build, well-groomed. A lert and oriented to person, place, time, situation. Appears to be under no acute distress. CURRENT VITAL SIGNS: Blood pressure of 111/52, heart rate is 64, respirations 16, saturating 90% on room ai r, temperature 36.8 degree Celsius. HEENT: Head is normocephalic. Lips and tongue are pink and kelly st with no signs of cyanosis. Conjunctivae pink. NECK: Trachea is midline, +2 carotid pulses bilat eral. No auscultated bruits. No jugular vein distention. RESPIRATORY: Lungs clear to auscultation . No rhonchi, rales, wheezes. No accessory muscle use. No intercostal muscle retraction noted. CA RDIAC: Regular rate, irregular rhythm. S1, S2. No S3, S4 noted. A 2/6 systolic murmur noted along the right upper chest near sternal border. ABDOMEN: Soft, nontender. Bowel sounds x4 quadrants. No organomegaly. No palpable masses. SKIN: [place], warm, dry. No cyanosis. No clubbing. No periph eral edema. VASCULAR: +2 carotids bilateral, +2 radials bilateral, +1 posterior tibial pulses bilat eral. Catheter insertion site, left groin site, ecchymoses noted around the incision site, with a he matoma on the left thigh about 3 x 3 inches. No tenderness. No redness, swelling or drainage. CMS checks to the lower extremity within normal limits. No auscultated bruit. LABORATORY DATA: Most current laboratory studies show WBC of 13 3.21, hemoglobin 10.5, hematocrit of 30.7, INR of 1.54. STUDIES: All studies mention as previously discharge summary, with the addition of pseudoaneurysm re pair, as mentioned above, and repeated ultrasound done yesterday afternoon. DISCHARGE DISPOSITION: The patient will be discharged home in stable condition. He is under activit y restrictions of not lifting more than 10 pounds for the next week, and no strenuous activity for e next 2 weeks. DISCHARGE MEDICATIONS: Please see discharge med reconciliation sheet. Note, the patient will be res umed on warfarin. DISCHARGE INSTRUCTIONS,: Post valvuloplasty discharge instructions went over with the patient again including activity restrictions, monitoring for signs of infection, bleeding, precautions, and bathin g precautions. The patient does have a followup appointment set with Dr. Torres on November 12. He will also follow up with the Clinic at that time. At the time of discharge, the patient and his both verbalized understanding all instructions and have no questions or concerns at this time. Total time spent on discharge greater than 30 minutes. /[id number]/MODL
--- NOTE | 2017-11-08 15:51 | ASDISCHSUM ---
Discharge Information Plan Status:Home with No Needs Medically Cleared to Leave: Discharge Date:11/08/2017 10:17 AM CM D/C Disposition:Home, Routine, Self-Care ADT D/C Disposition:Home, Routine, Self-Care Projected Discharge Date:11/08/2017 10:17 AM Transportation at D/C:Family Discharge Delay Reason: Follow-Up Date:11/08/2017 10:17 AM Discharge Slot: Final Diagnosis: Placement Information Patient Contact Information Contact Name:HONEY Relationship: Address:[address] City:[place] [facility] Phone: State/Zip Code:[place] [phone] Email: Financial Information Financial Class: Primary Plan Desc:MEDICARE INPATIENT Primary Plan Number:[id number] Secondary Plan Desc:[facility] Secondary Plan Number:[id number] Assessment Information [facility] CM Progress Note CM Note CM Note Notes: 11/06/2017 Case Management Note Discussed case with MATTHEW Cutler. Pt was assessed for d/c needs prior to TAVR procedure. There are no case management d/c needs identified post procedure. Pt has strong family support. Follow up appointments have been schedules by Jillian Cutler. Case Management d/c poc: Home with family with follow up as directed. Case Management available if needs change. Date Signed: 11/06/2017 11:18 AM Electronically Signed By:Amelia Steel RN [facility] CM Progress Note CM Note CM Note Notes: Patient medically cleared for discharge/ No needs at this time. CM available should needs arise. Date Signed: 11/08/2017 09:21 AM Electronically Signed By:Valery Solis RN Case Management Discharge Plan Note Case Management Discharge Discharge Order Complete? Answers: Yes Patient to Obtain Answers: Independently Medications Transportation Arranged Answers: Family/Friends Date Signed: 11/08/2017 09:21 AM Electronically Signed By:Valery Solis RN Intervention Information Intervention Type:*BROOKS-Signed Date of Service:11/06/2017 09:04 AM Patient Type:Observation Staff Member:Janell Gallegos Hours: Discipline: Severity: Comment: Intervention Type:*[place] 72 Date of Service:11/08/2017 10:57 AM Patient Type:Inpatient Staff Member:MATTHEW Collins Susan Hours: Discipline: Severity: Comment:
== END 2017-11-08 10:17 | disposition home or self-care (01) | DRG 274 ==
LOC: FCATH 05:59 → F2W 08:14 → OBSVTOIN 11-07 14:52
PROVIDERS: ADMIT Internal Medicine Cardiovascular Disease; ATTEND Internal Medicine Cardiovascular Disease
PROC: 027F3ZZ Dilation of Aortic Valve, Percutaneous Approach (ICD-10-PCS; principal; 2017-11-05)
PROC: 3E05317 Introduction of Other Thrombolytic into Peripheral Artery, Percutaneous Approach (ICD-10-PCS; 2017-11-06)
DX: I72.4 Aneurysm of artery of lower extremity (principal); I35.0 Nonrheumatic aortic (valve) stenosis; I25.10 Atherosclerotic heart disease of native coronary artery without angina pectoris; I48.2 Chronic atrial fibrillation; I73.9 Peripheral vascular disease, unspecified; I10 Essential (primary) hypertension; E78.5 Hyperlipidemia, unspecified; Z95.0 Presence of cardiac pacemaker; Z79.01 Long term (current) use of anticoagulants
CPT/HCPCS: C1769; J0360; J1644; J2250; J3010; Q9967

== ENCOUNTER → 2017-11-13 | Outpatient (CLI) | payer OTHER | LOC: FIMAGING 10:13 | PROVIDERS: ATTEND Internal Medicine Cardiovascular Disease | DX: M79.81 Nontraumatic hematoma of soft tissue (principal) ==

== ENCOUNTER 2017-12-29 12:23 | Inpatient (IN) | payer OTHER ==
--- NOTE | 2017-12-29 12:39 | CPEKG ---
Heart Rate: 54 RR Interval: 1111 P-R Interval: 262 QRSD Interval: 166 QT Interval: 532 QTC Interval: 505 P [place]: 0 QRS [place]: -56 T Wave [place]: 124 EKG Severity - ABNORMAL ECG - EKG Impression: VENTRICULAR-PACED COMPLEXES EKG Impression: FIRST DEGREE AV BLOCK EKG Impression: LEFT ATRIAL ABNORMALITY EKG Impression: LEFT BUNDLE BRANCH BLOCK Electronically Signed By: Madeleine Dukes 30-Dec-2017 07:17:27
[2017-12-29 13:02] LABS: PLATELET COUNT 110 10^3/uL (150-400)
[2017-12-29 13:10] LABS: INR 3.08 (0.83-1.16); PROTIME(PATIENT) 31.6 SEC (12.0-15.0)
--- NOTE | 2017-12-29 15:36 | EDPHY ---
H & P Stated Complaint: syncope Time Seen by Provider: 12/29/17 12:23 HPI/ROS: CHIEF COMPLAINT: Fainted HISTORY OF PRESENT ILLNESS: This is an 81-year-old male with multiple medical problems including a history of aortic stenosis, hypertension, V-tach with AICD , and coronary artery disease. He is taking Plavix and Coumadin. He arrives by ambulance after an apparent syncopal episode. He tells me that he was going to the garage when his her heard him fall. She found him on the ground and called 911, against his desires. He had no preceding symptoms and denies chest pain, lightheadedness, vertigo, or shortness of breath. He did not injure himself when he fell. Of note, he had a previous syncopal episode about 6 months ago. At that time he was hospitalized. He sustained a dens fracture. In October of 2017 he underwent aortic valvuloplasty. No recent vomiting or diarrhea. He has not seen blood in his stool. He denies abdominal pain. REVIEW OF SYSTEMS: A ten point review of systems was performed and is negative with the exception of the items mentioned in the HPI. Past medical/surgical history: 1. Aortic stenosis status post aortic valvuloplasty 10/2017 2. Peripheral vascular disease 3. Hypertension 4. Pulmonary hypertension 5. Hyperlipidemia 6. Coronary artery disease 7. Renal artery stenosis 8. V-tach with AICD 9. 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 Bilateral fem-pop bypasses 11. Sick sinus syndrome 12. Atrial fibrillation Social history: He lives with his . They have 4 daughters. General Appearance: Alert. Vital signs reviewed. Initial blood pressure 201/ 100 Head: Normocephalic atraumatic. Eyes: Pupils equal and round, no conjunctival injection, no discharge. Anicteric. ENT, Mouth: Mucous membranes are moist, no oropharyngeal erythema or edema. Neck: Nontender to palpation over the cervical spine in the midline. No pain with active range of motion of his neck. Respiratory: Lungs are clear to auscultation; no wheezes, rales, or rhonchi. Cardiovascular: Regular rate and rhythm; 1/6 murmur. Gastrointestinal: Abdomen is soft and nontender, no masses or organomegaly, bowel sounds normal. Skin: Warm and dry, no rashes on exposed skin, normal color. Back: Nontender to palpation over the thoracolumbar spine. No CVAT. Extremities: Bilateral 2+ lower extremity edema, worse on the left than on the right. Neurological: Alert and oriented. Moving all four extremities easily and equally. Cranial nerves II through XII are examined and are intact (visual acuity not tested). Strength is 5 over 5 bilaterally with testing of all major motor groups. Sensation is intact to light touch over all 4 extremities. Deep tendon reflexes are 2+ in the biceps and knees bilaterally. Psychiatric: Normal affect. - Personal History Current Tetanus Diphtheria and Acellular Pertussis (TDAP): Yes Tetanus Vaccine Date: WITHIN 10 YRS - Medical/Surgical History Hx Asthma: No Hx Chronic Respiratory Disease: No Hx Diabetes: No Hx Cardiac Disease: Yes Hx Renal Disease: No Hx Cirrhosis: No Hx Alcoholism: No Hx HIV/AIDS: No Hx Splenectomy or Spleen Trauma: No Other PMH: HTN, PPM, Afib, Hyperlipids, bilateral, pacer endarectomies, tonillectomy, angiogram - Social History Smoking Status: Former smoker Constitutional: Initial Vital Signs Temperature (C) 36.4 C 12/29/17 12:52 Heart Rate 62 12/29/17 12:52 Respiratory Rate 16 12/29/17 12:52 Blood Pressure 201/100 H 12/29/17 12:52 O2 Sat (%) 92 12/29/17 12:52 O2 Delivery Mode Room Air Allergies/Adverse Reactions: metoclopramide [From Reglan] Allergy (Verified 11/05/17 06:53) Home Medications: Medication Instructions Recorded Clopidogrel Bisulfate [Plavix (*)] 75 mg PO DAILY 06/25/13 Ranitidine HCl [Ranitidine HCl 150 150 mg PO BID 06/25/13 mg] Warfarin Sodium [Coumadin 2.5MG 2.5 mg PO SUMOTUWETHFR@16 11/05/16 (*)] Metoprolol Tartrate [Lopressor 25 25 mg PO DAILY@06 #0 tab 11/10/16 mg (*)] Donepezil HCl [Aricept 5 MG (*)] 10 mg PO HS 05/10/17 Metoprolol Tartrate [Lopressor 25 12.5 mg PO DAILY@18 #0 tab 05/14/17 mg (*)] Fenofibrate [Tricor 145 mg (*)] 145 mg PO DAILY 07/31/17 Gabapentin [Neurontin 300 MG (*)] 600 mg PO HS 07/31/17 Atorvastatin Calcium [Lipitor 40 80 mg PO HS 10/11/17 mg (*)] Ferrous Sulfate [Slow Fe 140 MG 140 mg PO DAILY 10/11/17 (*)] Acetaminophen [Tylenol 325mg (*)] 650 mg PO Q6HRS PRN 10/29/17 Memantine HCl [Namenda 5 mg (*)] 5 mg PO BID 12/29/17 Warfarin Sodium [Coumadin 5MG (*)] 5 mg PO SA@16 12/29/17 traZODone [traZODONE 50MG (*)] 50 mg PO HS 12/29/17 Medical Decision Making - Diagnostics EKG Interpretation: 12 lead EKG is interpreted in Trace master View by emergency department physician. Ventricular paced complexes. ED Course/Re-evaluation: 81-year-old male with history of aortic stenosis and atrial fibrillation/sick sinus who presents after an apparent syncopal episode. EKG shows a paced rhythm. He is without complaints. There were no antecedent events. He is on Coumadin. His INR is just over 3. I do not suspect pulmonary embolus , given this INR. He has no respiratory complaints. That he is more likely that this is a cardiac event, either related to his aortic stenosis or cardiac arrhythmia. He does have a paced rhythm on his EKG. He has an AICD. His pacer was last interrogated about 3 months ago. He will likely need repeat interrogation. He was hypertensive during his stay in the emergency department. He did take his antihypertensive medication this morning. Given his aortic stenosis he was not given additional antihypertensives. He is being admitted to the hospitalist service, to a monitored bed. I have not found evidence of any injuries related to his fall. Differential Diagnosis: Syncope including but not limited to vasovagal syncope, arrhythmia, dehydration , and blood loss. - Data Points Laboratory Results: Laboratory Results 12/29/17 12:40 12/29/17 12:40 12/29/17 12/29/17 12/29/17 12:40 12:40 12:40 WBC RBC Hgb Hct MCV MCH MCHC RDW Plt Count MPV Neut % (Auto) Lymph % (Auto) Wilson % (Auto) Eos % (Auto) Baso % (Auto) Nucleat RBC Rel Count Absolute Neuts (auto) Absolute Lymphs (auto) Absolute Monos (auto) Absolute Eos (auto) Absolute Basos (auto) Absolute Nucleated RBC Immature Gran % Immature Gran # PT 31.6 SEC H SEC (12.0-15.0) INR 3.08 H (0.83-1.16) Sodium 145 mEq/L mEq/L (135-145) Potassium 4.3 mEq/L mEq/L (3.5-5.2) Chloride 106 mEq/L mEq/L (97-110) Carbon Dioxide 27 mEq/l mEq/l (22-31) Anion Gap 12 mEq/L mEq/L (8-16) BUN 24 mg/dL H mg/dL (7-23) Creatinine 0.9 mg/dL mg/dL (0.7-1.3) Estimated GFR > 60 Glucose 94 mg/dL mg/dL (70-100) Calcium 9.5 mg/dL mg/dL (8.5-10.4) Troponin I 0.024 ng/mL ng/mL (0.000-0.034) NT-Pro-B Natriuret Pep 3830 pg/mL H pg/mL (0-450) 12/29/17 12:40 WBC 3.46 10^3/uL L 10^3/uL (3.80-9.50) RBC 3.87 10^6/uL L 10^6/uL (4.40-6.38) Hgb 13.2 g/dL L g/dL (13.7-17.5) Hct 39.6 % L % (40.0-51.0) MCV 102.3 fL H fL (81.5-99.8) MCH 34.1 pg pg (27.9-34.1) MCHC 33.3 g/dL g/dL (32.4-36.7) RDW 14.2 % % (11.5-15.2) Plt Count 110 10^3/uL L 10^3/uL (150-400) MPV 11.2 fL fL (8.7-11.7) Neut % (Auto) 54.0 % % (39.3-74.2) Lymph % (Auto) 28.9 % % (15.0-45.0) Wilson % (Auto) 13.0 % % (4.5-13.0) Eos % (Auto) 2.9 % % (0.6-7.6) Baso % (Auto) 0.9 % % (0.3-1.7) Nucleat RBC Rel Count 0.0 % % (0.0-0.2) Absolute Neuts (auto) 1.87 10^3/uL 10^3/uL (1.70-6.50) Absolute Lymphs (auto) 1.00 10^3/uL 10^3/uL (1.00-3.00) Absolute Monos (auto) 0.45 10^3/uL 10^3/uL (0.30-0.80) Absolute Eos (auto) 0.10 10^3/uL 10^3/uL (0.03-0.40) Absolute Basos (auto) 0.03 10^3/uL 10^3/uL (0.02-0.10) Absolute Nucleated RBC 0.00 10^3/uL 10^3/uL (0-0.01) Immature Gran % 0.3 % % (0.0-1.1) Immature Gran # 0.01 10^3/uL 10^3/uL (0.00-0.10) PT INR Sodium Potassium Chloride Carbon Dioxide Anion Gap BUN Creatinine Estimated GFR Glucose Calcium Troponin I NT-Pro-B Natriuret Pep Departure - Departure Disposition: [facility] Inpatient Acute Clinical Impression: Syncope Qualifiers: Syncope type: unspecified Qualified Code(s): R55 - Syncope and collapse Condition: Good
[2017-12-29] MEDS ORDERED: ACETAMINOPHEN 325 MG TAB PO PRN (15:44)
[2017-12-29] MEDS ORDERED: ONDANSETRON DISINTEGRATING 4 MG TAB PO PRN (15:44)
[2017-12-29] MEDS ORDERED: ONDANSETRON 4 MG/2 ML VIAL IVP PRN (15:44)
[2017-12-29] MEDS ORDERED: FUROSEMIDE 40 MG/4 ML VIAL IVP ONE (16:19)
--- NOTE | 2017-12-29 16:38 | GHP ---
[f rep st] HISTORY AND PHYSICAL DATE OF ADMISSION: 12/29/2017 HISTORY OF PRESENT ILLNESS: The patient is a pleasant 81-year-old gentleman with a history of aortic stenosis, who underwent aortic valvuloplasty in October of this year, as well as peripheral vascula r disease, AICD, history of ventricular tachycardia, and coronary artery disease, who presents with a n episode of syncope. He was here in July of 2017 with a syncopal episode that resulted in a de ns fracture. I took care of him during that admission. The patient said he has been feeling well si nce his discharge in mid October, and he notes decreased dyspnea on exertion following the valvulopl asty. He does have peripheral edema that he says is largely unchanged. Today he was going out to the garage to do something, and his heard a thud and found him in the laundry room having passed out and he was yelling "do not call 911." Well, she did and they brought him here. When I speak with the patient, he is pleasant, he is alert. He denies antecedent chest pa in, palpitations, shortness of breath, fever, chills, nausea, vomiting, or diarrhea. Says he has bee n eating and drinking relatively well, and he does not take diuretics. The patient is therapeutically anticoagulated for atrial fibrillation, and his INR is 3 today. REVIEW OF SYSTEMS: Complete 10-point review of systems conducted negative except as noted in the HPI . PAST MEDICAL HISTORY: 1. What sounds like severe aortic stenosis, status post an aortic valvuloplasty as an attempt to und erstand if TAVR was right for him. 2. Severe peripheral vascular disease. 3. History of ventricular tachycardia with AICD. 4. Bilateral femoral-popliteal bypass. 5. Pulmonary hypertension. 6. Hypertension. 7. Hyperlipidemia. 8. Coronary artery disease. 9. Renal artery stenosis. 10. 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 ALLERGIES: Metoclopramide. HOME MEDICATIONS: Recent list is Tylenol, atorvastatin, clopidogrel, donepezil, fenofibrate, ferrous sulfate, gabapentin, metoprolol, ranitidine, warfarin. SOCIAL HISTORY: He quit smoking 40 years ago. Minimal alcohol. Lives with his . Four daughter s. FAMILY HISTORY: Parents . PHYSICAL EXAMINATION: PRESENTING VITALS TODAY: Temp 36.4, blood pressure 200/100, pulse 62, breathi ng 16 times a minute, 92% on room air. IN GENERAL: No acute distress. HEENT: Sclerae anicteric. Oropharynx clear. Mucous membranes are moist. NECK: Supple without lymphadenopathy or JVD. LUNGS: Clear to auscultation bilaterally. HEART: S1, S2. I really cannot hear much of a murmur, other t walker a mild systolic murmur. There is no harsh murmur. ABDOMEN: Soft, nontender, nondistended. EXTREMITIES: Lower extremities show 1+ edema on the right, 2+ on the left. Calves are nontender. S KIN: Without rash. NEUROLOGIC: Exam is nonfocal. LABORATORY DATA: White count is 3.5, baseline, hematocrit 39, platelets are 110,000. That is also b aseline. His INR is 3.08. Sodium 145, potassium 4.3, chloride 106, bicarb 27, BUN 24, creatinine 0. 9. This is his baseline. Troponin 0.024. EKG, interpreted by me, shows ventricular-based complexes, really uninterpretable for ischemia. This is similar to his tracing from EMS. I have discussed the case with Dr. Madeleine Dukes. ASSESSMENT AND PLAN: This is a pleasant 81-year-old gentleman with syncope and multiple reasons to p otentially have syncope. 1. Syncope. Differential predominantly includes arrhythmia, either bradycardic or tachycardic, vers us symptomatic . Also to be considered would be a vertebral artery insufficiency. a. We will interrogate his pacer/AICD. b. I will perform an echocardiogram to evaluate the status of his aortic stenosis following the valv uloplasty. c. I reviewed a carotid ultrasound October of 2017, says minimal identify the right jhoan tebral artery with forward flow seen in the left vertebral artery, so certainly vertebral insufficien cy is a possibility. We will check orthostatic vital signs x1. I have considered pulmonary embolism , and feel that further workup is not necessary given his therapeutic INR. 2. Indeterminate troponin. We will cycle his troponins. 3. Marked hypertension. We will let this ride for now, given his aortic stenosis, as certainly I do not want to treat this and risk hemodynamic collapse. 4. Peripheral vascular disease. We will continue his Plavix, and his medications have been reconcil ed. 5. Prophylaxis. Is therapeutically anticoagulated. DISPOSITION: Inpatient status. The patient may benefit from a cardiology consultation. I have not spoken with them at this time. /[id number]/MODL
--- NOTE | 2017-12-29 16:55 | PDMN ---
Medical Necessity Medical necessity: C/M review: est. > 2 MN LOS for eval and TX of acute syncope - differential includes possible arrhythmia either bradycardic or tachycardic, versus symptomatic aortic stenosis, or possible vertebral artery insufficiency, indeterminate troponin, marked hypertension, requiring planned echocardiogram, pacemaker/AICD interrogation, IV Lasix x 1, possible future Cardiology consult, ongoing cardiac monitoring, pulse oximetry, acute inpt PT/OT , comorbid fall just prior to this admission, history of aortic stenosis, aortic valvuloplasty 10/2017, severe peripheral vascular disease, 07/2017 hospitalization for syncope with dens fracture, peripheral edema, ventricular tachycardia with AICD, bilateral femoral-popliteal bypass, pulmonary hypertension, hypertension, hyperlipidemia, CAD, renal artery stenosis, GI bleed due to AVM per H/P.
[2017-12-29] MEDS: METOPROLOL TARTRATE 25 MG TAB PO SCH (17:32)
[2017-12-29] MEDS: CLOPIDOGREL BISULFATE 75 MG TAB PO SCH (17:32)
[2017-12-29] MEDS: GABAPENTIN 300 MG CAP PO SCH (20:58)
[2017-12-29] MEDS: FAMOTIDINE 20 MG TAB PO SCH (20:58)
[2017-12-29] MEDS: MEMANTINE HCL 5 MG TAB PO SCH (20:58)
[2017-12-29] MEDS: DONEPEZIL HCL 5 MG TAB PO SCH (20:58)
[2017-12-29] MEDS: ATORVASTATIN CALCIUM 40 MG TAB PO SCH (20:59)
[2017-12-29] MEDS ORDERED: NON-FORMULARY NEW DRUG (Ranitidine Hcl [Ranitidine Hcl 150 Mg] 150 MG) PO SCH (21:00)
[2017-12-29] MEDS ORDERED: traZODone 50 MG TAB PO SCH (21:00)
[2017-12-30 04:43] LABS: PLATELET COUNT 96 10^3/uL (150-400)
[2017-12-30 04:54] LABS: INR 3.5 (0.83-1.16); PROTIME(PATIENT) 34.9 SEC (12.0-15.0)
[2017-12-30] MEDS: CLOPIDOGREL BISULFATE 75 MG TAB PO SCH (08:48)
[2017-12-30] MEDS: FAMOTIDINE 20 MG TAB PO SCH ×2 (08:48→20:11)
[2017-12-30] MEDS: MEMANTINE HCL 5 MG TAB PO SCH ×2 (08:48→20:11)
[2017-12-30] MEDS: FENOFIBRATE 145 MG TAB PO SCH (08:48)
--- NOTE | 2017-12-30 10:15 | HOSPPROG ---
Hospitalist Progress Note Assessment/Plan: #Aortic stenosis: h/o valvuloplasty. No plan for TAVR per cards. Echo today shows improved . FU with Dr. Ramirez 01/01 and can discuss whether TAVR viable option given high-risk #Syncope: improved , preserved EF. No e/o VT, a fib on interrogation. Mild drop in H/H (at baseline per review of prior labs). History of GIB in past; denies bleeding now #Indeterminate trop: no CP or SOB #Supratherapeutic INR: hold coumadin today. No active bleeding. Repeat in morning #HTN: let BP run little high with #HLD: Tricor #Diet: cardiac #Disp: warrants inpatient admission for continuous telemetry, repeat H/H in morning Subjective: no CP or SOB Objective: Vital Signs Temp Pulse Resp BP Pulse Ox 36.8 C 78 17 128/53 H 91 L 12/30/17 08:00 12/30/17 08:00 12/30/17 08:00 12/30/17 08:00 12/30/17 08:00 Laboratory Results 12/30/17 03:40 12/30/17 03:40 12/29/17 12/30/17 12/31/17 05:59 05:59 05:59 Intake Total 1070 Output Total 2075 Balance -1005 PT 34.9 SEC (12.0-15.0) H 12/30/17 03:40 INR 3.50 (0.83-1.16) H 12/30/17 03:40 - Physical Exam Constitutional: no apparent distress Eyes: PERRL Ears, Nose, Mouth, Throat: moist mucous membranes Cardiovascular: regular rate and rhythym, No edema Respiratory: no respiratory distress, no rales or rhonchi Gastrointestinal: normoactive bowel sounds, soft, non-tender abdomen Genitourinary: no bladder fullness Skin: warm Musculoskeletal: full muscle strength Neurologic: AAOx3, CN II-XII Intact ICD10 Worksheet Patient Problems: Problems Problem Status Onset Syncope Acute Acute ischemic stroke Acute Atrial fibrillation Acute Closed C2 fracture Acute Forehead laceration Acute Occlusion of left internal carotid artery Acute PVD (peripheral vascular disease) Acute Ventricular tachycardia Acute
--- NOTE | 2017-12-30 10:59 | ASMTCMCOM ---
CM Note CM Note Notes: 12/30/2017 Case Management Note Spoke w/RN and nurse wound care Brit Sierra from Dr. Vergara's office. Met w/ Pt and to discuss PT recommendation for Home PT. Pt had prior services from [facility]. At family request sent referral to [facility]. Case Management d/c poc: [facility] RN and PT pending acceptance. Case Management to follow. Date Signed: 12/30/2017 10:59 AM Electronically Signed By:Amelia Steel RN
--- NOTE | 2017-12-30 11:08 | ECHO ---
[email or web address] [address] [address] Main: [phone] Fax: Transthoracic Echocardiogram Name: OLIVIA VARGAS MR#: [id number] Study Date: 12/30/2017 Study Time: 09:29 AM Date of : 1935 Age: 82 year(s) Height: 180.3 cm (71 in.) Weight: 79.83 kg (176 lb.) BSA: 2 m2 Gender: Male Examination: Echo Indication: Syncope/ with recent valvuloplasty, pacer Image Quality: Contrast: Requested by: Alex Carrasco BP: 101 mmHg/55 mmHg Heart Rate: Rhythm: Indication: Syncope/ with recent valvuloplasty, pacer Procedure Staff Media Marketing Specialist: Shonda Patel [facility] Reading Physician: Kevin Rios Requesting Provider: Conclusions: No pericardial effusion. Concentric left ventricular hypertrophy with ejection fraction of 67%. Elevated filling pressures by tissue Doppler. Severe biatrial enlargement. Peak aortic valve gradient 35 mm of mercury with a mean gradient of 17 mm of mercury. mild mitral regurgitation. Right ventricular systolic pressure elevated at 63 to 68 mm of mercury. Pacemaker in the right heart. Measurements: Chambers Valvular Assessment AV/MV Valvular Assessment TV/PV Normal Normal Normal Name Value Range Name Value Range Name Value Range Ao Carla (MM): 4.0 cm (2.2 cm-3.7 AV Vmax: 2.99 m/s (1 m/s-1.7 TR Vmax: 3.80 mm/s ( - ) cm) m/s) TR PGmax: 58 mmHg ( - ) IVSd (2D): 1.8 cm (0.6 cm-1.1 AV maxP mmHg ( - ) syst. PAP: 63 mmHg ( - ) cm) AV meanP mmHg ( - ) LVDd (2D): 4.9 cm (4.2 cm-5.9 LVOT Vmax: 0.61 m/s (0.7 m/s-1.1 cm) m/s) LVDs (2D): 3.5 cm (2.1 cm-4 MACK (Vmax): 0.8 cm2 ( - ) cm) MACK (VTI): 0.9 cm ( - ) LVPWd (2D): 1.2 cm (0.6 cm-1 AR (PHT): 542 ms ( - ) cm) MV E Vmax: 1.03 m/s ( - ) LVOTd 2.3 cm 2.3 cm mm MV A Vmax: 0.34 m/s ( - ) LVEF (MOD4): 67 % (>=55 %) MV E/A: 3.03 ( - ) Continued Measurements: Chambers Valvular Assessment AV/MV Valvular Assessment TV/PV Name Value Name Value Name Value LADs: 5.9 cm MV E/E' Septal: 24.60 CVP (est.): 5 mmHg LADs Lon.5 cm MV E/E' Lateral: 14.70 LA Area: 39.9 cm2 AR Vmax: 3.52 cm/s Patient: OLIVIA VARGAS Study Date: 12/30/2017 Page 1 of 2 09:29 AM Findings: Left Ventricle: Normal size left ventricle. Mild concentric LV hypertrophy. Normal global systolic LV function. EF is 67 %. No regional wall motion abnormality. Right Ventricle: Normal size right ventricle. There is a pacemaker lead noted in the right ventricle. Left Atrium: The left atrium is severely dilated. Right Atrium: The right atrium is severely dilated. Mitral Valve: Moderate mitral annular calcification. Moderate mitral valve leaflet calcification is present. Mild mitral valve regurgitation is present. Aortic Valve: Trivial to mild aortic valve regurgitation. Tricuspid Valve: The tricuspid valve is normal in appearance and function. Moderate tricuspid regurgitation is present. The pulmonary artery pressure is mild to moderately increased. RVSP is 63-68mmHG.. Pulmonic Valve: The pulmonic valve is normal in appearance and function. Mild pulmonic valve regurgitation is noted. Aorta: The aorta is normal. Pericardium: No pericardial effusion. (No Signature Object) Patient: OLIVIA VARGAS Study Date: 12/30/2017 Page 2 of 2 09:29 AM [id number]
[2017-12-30] MEDS: METOPROLOL TARTRATE 25 MG TAB PO SCH ×2 (11:24→18:23)
--- NOTE | 2017-12-30 13:48 | GCON ---
[f rep st] CONSULTATION CARDIAC CONSULTATION DATE OF CONSULTATION: 12/30/2017 CHIEF COMPLAINT: Syncope. HISTORY OF PRESENT ILLNESS: The patient is an 82-year-old male with complicated cardiac history, mingo lugo followed by Dr. Elroy Ramirez, and admitted with syncope. He has a history of bicuspid aortic v alve and severe aortic stenosis status post a balloon valvuloplasty on November [address] Torres. His other history includes severe peripheral vascular disease, ventricular tachycardia status post Me dtronic AICD, coronary artery disease with known totally occluded right coronary artery, permanent at rial fibrillation on Coumadin with therapeutic INR, severe pulmonary hypertension, and hypertension. He has noted improvement in his shortness of breath after his balloon valvuloplasty. He had actually been feeling quite well until his syncopal event yesterday afternoon. He was walking to the garage when he experienced a true syncopal event. His heard him hit the floor and was by his side fermin self. She noted he was out for at least 5 minutes before he slowly came to. He was aware of his surr oundings shortly after his event. He denied any chest pain, shortness of breath, or palpitations. Chevy salazar has a history of syncope with his last event occurring on August 11. At that time, he did suf taj a dens fracture. His troponins have been mildly elevated at 0.04 and 0.055. An echocardiogram showed preserved LV fun ction with an ejection fraction of 67%. His right ventricular systolic pressures continued to be allie vated at 63-68. His mean aortic valve gradient was 17, which improved from 35. His ICD was interrog ated, and there were no ventricular arrhythmias noted. PAST MEDICAL HISTORY: Permanent atrial fibrillation, coronary artery disease, ventricular tachycardi a, peripheral vascular disease, aortic stenosis status post balloon valvuloplasty on 11/05, severe pu lmonary hypertension, hypertension, hyperlipidemia, renal artery stenosis, GI bleed due to an AVM. SOCIAL HISTORY: He is currently accompanied by his . He denies any excessive alcohol or drug us e. MEDICATIONS: Aricept 10 mg daily. Gabapentin 300 mg at bedtime. Lipitor 80 mg daily. Metoprolol 2 5 mg half tab in the morning. Namenda 5 mg b.i.d. Plavix 75 mg daily. Ranitidine 150 mg b.i.d. Tra zodone 50 mg at bedtime. Tricor 145 mg daily. Coumadin 5 mg on Saturday, 2.5 mg every other day. T ylenol. Iron. ALLERGIES: Metoclopramide. REVIEW OF SYSTEMS: Negative except for what is stated in the H and P. PHYSICAL EXAMINATION: GENERAL: Patient appears in no acute distress. VITAL SIGNS: Blood pressure 1 80/70, heart rate 68, oxygen saturation of 97%, afebrile. Orthostatics were low normal. LUNGS: Shan ar to auscultation. No wheezes, rhonchi, or crackles auscultated. CARDIAC: Irregular rhythm with 4/ 6 systolic murmur. ABDOMEN: Soft, nontender, nondistended. EXTREMITIES: Palpable pulses bilateral ly without any evidence of edema. NEUROLOGIC: Nonfocal. SKIN: No obvious rashes or ecchymosis dashawn ntified. PSYCHIATRIC: Mood and affect appropriate. LABORATORY: Troponin 0.040, 0.055. BNP 3830. BMP within normal limits except for BUN is slightly e levated at 25. WBC is 3.35, hemoglobin 11.7, hematocrit 33.4, INR 3.5. ASSESSMENT: The patient is an 82-year-old male with a history of severe aortic stenosis status post balloon valvuloplasty, peripheral vascular disease, ventricular tachycardia, coronary artery disease, permanent atrial fibrillation, severe pulmonary hypertension, and hypertension, who presents with sy ncope. PLAN: 1. Aortic stenosis status post balloon valvuloplasty on November 05, 2017. The patient has had an i mprovement in his shortness of breath. A repeat echocardiogram showed his to be mild. He does clifton ve preserved LV function with an ejection fraction of 67%. The patient is scheduled to follow up allison Ramirez on Saturday to discuss if he is a candidate for further treatment such as a TAVR. My u nderstanding is that the patient is high risk and, therefore, not a great candidate. 2. Ventricular tachycardia status post ICD. His ICD was interrogated today and there is no evidence of ventricular arrhythmias. He has permanent atrial fibrillation, but there was no evidence of rapi d ventricular rates. His device will be adjusted so his monitoring zone will begin at 140 beats per minute. His event came on without warning, which is concerning for a ventricular event. 3. Coronary artery disease with mildly elevated troponins. He has known totally occluded right shaun nary artery. He is not complaining of angina. Continue medical management. 4. Permanent atrial fibrillation, rate controlled. He is currently on Coumadin with a therapeutic I NR of 3.5. 5. Severe pulmonary hypertension. 6. Hypertension. His systolic blood pressure varies from 110 to 180. This is not abnormal for him. If anything, this is a little better controlled than in the past. Orthostatics were low normal. 7. Anemia. He did have a drop in his H and H from yesterday to this morning. It is possible this i s dilutional, but I would like to repeat an H and H tomorrow morning. He does have a history of GI b leed and his INR is supratherapeutic at 3.5. His Coumadin is on hold. 8. The patient had an episode of syncope of unclear etiology. The monitoring zone on his ICD has be en adjusted. Will plan to monitor his H and H tomorrow to ensure he is not having significant GI ble ed. Plan for discharge home tomorrow with followup with Dr. Elroy Ramirez on Saturday. /[id number]/MODL
[2017-12-30] MEDS ORDERED: WARFARIN SODIUM 2.5 MG TAB PO SCH (16:00)
[2017-12-30] MEDS: DONEPEZIL HCL 5 MG TAB PO SCH (20:11)
[2017-12-30] MEDS: GABAPENTIN 300 MG CAP PO SCH (20:11)
[2017-12-30] MEDS: ATORVASTATIN CALCIUM 40 MG TAB PO SCH (20:12)
[2017-12-31 04:48] LABS: INR 2.87 (0.83-1.16)
[2017-12-31] MEDS: METOPROLOL TARTRATE 25 MG TAB PO SCH (06:35)
[2017-12-31 07:57] VITALS: PULSE 52
[2017-12-31] MEDS: CLOPIDOGREL BISULFATE 75 MG TAB PO SCH (08:20)
[2017-12-31] MEDS: MEMANTINE HCL 5 MG TAB PO SCH (08:21)
[2017-12-31] MEDS: FENOFIBRATE 145 MG TAB PO SCH (08:21)
[2017-12-31] MEDS: FAMOTIDINE 20 MG TAB PO SCH (08:21)
--- NOTE | 2017-12-31 11:20 | PDIAF ---
- Diagnosis Diagnosis: syncope Code Status: Full Code - Medication Management Discharge Medications: Medications to Continue on Transfer Clopidogrel Bisulfate [Plavix (*)] 75 mg PO DAILY 06/25/13 [Last Taken 12/28/17] Ranitidine HCl [Ranitidine HCl 150 mg] 150 mg PO BID 06/25/13 [Last Taken 09:00] Warfarin Sodium [Coumadin 2.5MG (*)] 2.5 mg PO SUMOTUWETHFR@16 11/05/16 [Last Taken 12/29/17] Metoprolol Tartrate [Lopressor 25 mg (*)] 25 mg PO DAILY@06 #0 tab 11/10/16 [ Last Taken 12/29/17] Donepezil HCl [Aricept 5 MG (*)] 10 mg PO HS 05/10/17 [Last Taken 12/28/17] Metoprolol Tartrate [Lopressor 25 mg (*)] 12.5 mg PO DAILY@18 #0 tab 05/14/17 [ Last Taken 12/28/17] Fenofibrate [Tricor 145 mg (*)] 145 mg PO DAILY 07/31/17 [Last Taken 12/29/17] Gabapentin [Neurontin 300 MG (*)] 600 mg PO HS 07/31/17 [Last Taken 12/28/17] Atorvastatin Calcium [Lipitor 40 mg (*)] 80 mg PO HS 10/11/17 [Last Taken ] Ferrous Sulfate [Slow Fe 140 MG (*)] 140 mg PO DAILY 10/11/17 [Last Taken ] Acetaminophen [Tylenol 325mg (*)] 650 mg PO Q6HRS PRN 10/29/17 [Last Taken 12/28] Memantine HCl [Namenda 5 mg (*)] 5 mg PO BID 12/29/17 [Last Taken 12/29/17 09:00 ] Warfarin Sodium [Coumadin 5MG (*)] 5 mg PO SA@16 12/29/17 [Last Taken 12/28/17] traZODone [traZODONE 50MG (*)] 50 mg PO HS 12/29/17 [Last Taken 12/28/17] Discharge Medications: Refer to the Discharge Home Medication list for PRN reason. - Orders Services needed: Home Care, Registered Nurse, Physical Therapy Home Care Face to Face: I certify that this patient was under my care and that I had the required [id number] encounter meeting the encounter requirements on the discharge day. My findings support the fact that the patient is homebound as defined in Home Care Face to Face Continued: [facility] Chapter 7 Medicare Benefits Manual 30.1.1 , The condition of the patient is such that there exists a normal inability to leave home and consequently, leaving home would require a considerable and taxing effort. Diet Recommendation: cardiac -low fat low salt - Labs/Radiology PT/INR Date: 01/01/18 - Follow Up Care Current Providers and Referrals: Yusuf Peterson [Primary Care Provider] - As per Instructions
[2017-12-31 11:55] VITALS: BP 164/67; RESP 16; TEMP 97.4; O2SAT 96
--- NOTE | 2017-12-31 12:17 | ASMTLACE ---
KRISTINAE Length of stay for Answers: 1 day current admission Acuity / Level of Answers: Yes Care: Did the patient have an inpatient admission? Comorbidities - select Answers: History of falls all that apply Other # of Emergency department Answers: 0 visits in the last 6 months Score: 8 Date Signed: 12/31/2017 12:16 PM Electronically Signed By:Amelia Steel RN
--- NOTE | 2017-12-31 12:36 | PDCARPN ---
Cardiology Progress Note Chief Complaint: Syncope Assessment/Plan: Assessment: Tera is a 82 y/o M with a history of BAV and severe s/p balloon valvuloplasty on 11/05 admitted with syncope. He also has a history of severe PVD, VT s/p ICD, CAD with TO SVG to the RCA in 04/2017, permanent a.fib on Coumadin, severe PHTN, and HTN. He was walking to the garage when his heard him hit the floor. She was unable to arouse him for at least 5 minutes. He device was interrogated and did not show any ventricular arrhythmias or RVR. A echo showed a EF of 67% with mild (mean valve gradient of 17), and RVSP of 63-68. Plan: 1. s/p balloon valvuloplasty on 11/05. is currently mild. CHOU improved per his . The patient was discussed with Dr. Montelongo who felt the patient was high risk for TAVR. He will follow up with Dr. Elroy Ramirez tomorrow to discuss this further. 2. VT s/p ICD- No significant arrhythmias noted by ICD interrogation. Monitoring zone adjusted to 140 BPM. 3. CAD- continue medical management with Lipitor, Tricor, Metoprolol, and Plavix 4. PVD 5. Severe PHTN- stable by echo. 6. Anemia- stable from yesterday to today. 7. Permanent a.fib on Coumadin with therapeutic INR. 8. Syncope of unknown etiology. Monitoring zone adjusted. Follow up with Dr. Ramirez tomorrow. 12/31/17 12:36 Subjective: Pt denies any CP and his SOB has improved. He denies any lightheadedness or dizziness Objective: Vital Signs (8 Hrs) Temp Pulse Resp BP Pulse Ox 12/31/17 11:54 36.3 C 52 L 16 164/67 H 96 12/31/17 07:57 36.4 C 52 L 18 188/81 H 94 12/31/17 06:35 50 L 180/75 H Intake/Output (24 Hrs) 12/30/17 12/31/17 01/01/18 05:59 05:59 05:59 Intake Total 1070 1700 980 Output Total 2074 Balance -1005 1700 980 Intake: Oral (ml) 1070 1700 980 Output: Urine (ml) 2075 Toilet 375 Urinal 1700 Other: Weight 79.832 kg 70.5 kg Intake Quantity Yes Yes Sufficient Number of Voids Toilet 1 2 Urinal 1 Number of Stools Toilet 1 Result Diagrams: 12/31/17 04:12 12/30/17 03:40 Cardiac Labs: Cardiac Lab Results (72 Hrs) 12/30/17 12/29/17 01:20 19:07 Troponin I 0.055 H 0.040 H Telemetry: a.fib with v pacing - Physical Exam Cardiovascular: systolic murmur, irregularly irregular Respiratory: clear to auscultate bilat Neurologic: AAOx3 ICD10 Worksheet Patient Problems: Problems Problem Status Onset Syncope Acute Acute ischemic stroke Acute Atrial fibrillation Acute Closed C2 fracture Acute Forehead laceration Acute Occlusion of left internal carotid artery Acute PVD (peripheral vascular disease) Acute Ventricular tachycardia Acute
--- NOTE | 2017-12-31 16:26 | ASDISCHSUM ---
Discharge Information Plan Status:Home with Home Health Medically Cleared to Leave:12/30/2017 Discharge Date:12/31/2017 01:00 PM CM D/C Disposition:Home Health Service ADT D/C Disposition:Home Health Service Projected Discharge Date:01/01/2018 11:00 AM Transportation at D/C:Family Discharge Delay Reason: Follow-Up Date:01/01/2018 11:00 AM Discharge Slot: Final Diagnosis: Placement Information Referral Type:*Home Health Care Services Referral ID:[id number] Provider Name:[facility] [place] Address 1:[address] [address] Phone Number: Address 2: Fax Number: City:[place] Selection Factors: State:[place] Patient Contact Information Contact Name:HONEY Relationship: Address:[address] City:[place] Alternate Phone: State/Zip Code:[place] [phone] Email: Financial Information Financial Class: Primary Plan Desc:MEDICARE INPATIENT Primary Plan Number:[id number] Secondary Plan Desc:[facility] Secondary Plan Number:[id number] Assessment Information [facility] CM Progress Note CM Note CM Note Notes: 12/30/2017 Case Management Note Spoke w/RN and child care attendant school Brit Sierra from Dr. Vergara's office. Met w/ Pt and to discuss PT recommendation for Home PT. Pt had prior services from [facility]. At family request sent referral to [facility]. Case Management d/c poc: [facility] RN and PT pending acceptance. Case Management to follow. Date Signed: 12/30/2017 10:59 AM Electronically Signed By:Amelia Steel RN LACE GARETH Length of stay for Answers: 1 day current admission Acuity / Level of Answers: Yes Care: Did the patient have an inpatient admission? Comorbidities - select Answers: History of falls all that apply Other # of Emergency department Answers: 0 visits in the last 6 months Score: 8 Date Signed: 12/31/2017 12:16 PM Electronically Signed By:Amelia Steel RN Case Management Discharge Plan Note Case Management Discharge Discharge Order Complete? Answers: Yes Patient to Obtain Answers: via Family Medications Transportation Arranged Answers: Family/Friends Faxed Final Orders Answers: Yes Agency/Facility Transfer Answers: Yes Report Printed & Faxed to Receiving Agency Family Notified Answers: Yes Notes: in room Discharge Comments Notes: Pt to re start services with [facility]. Faxed final orders through all scripts. to transport home. Date Signed: 12/31/2017 04:25 PM Electronically Signed By:Amelia Steel RN Intervention Information
--- NOTE | 2017-12-31 20:34 | GDS ---
[f rep st] DISCHARGE SUMMARY DISCHARGE DIAGNOSES: 1. Aortic stenosis status post balloon valvuloplasty 11/05/2018. 2. Ventricular tachycardia, status post implantable cardioverter defibrillator. 3. Coronary artery disease. 4. Peripheral vascular disease. 5. Severe pulmonary hypertension. 6. Normocytic anemia. 7. Permanent atrial fibrillation, on Coumadin. 8. Acute syncope. 9. Deconditioning. 10. Supratherapeutic INR. 11. Hypertension. 12. Hyperlipidemia. HISTORY OF PRESENT ILLNESS: An 82-year-old male, history of bicuspid atrial valve and severe , sta tus post balloon valvuloplasty on 11/05, admitted with syncope. He was walking to the garage when hi s heard him hit the floor, she was unable to arouse him for at least 5 minutes. His device was interrogated here and did not show any ventricular arrhythmias. Repeat echocardiogram shows an EF of 67% with mild and an RVSP of 63-68 mmHg. HOSPITAL COURSE BY PROBLEM: 1. Syncope. Unclear etiology. Interrogated the device with no evidence of arrhythmia. EF was stab le on echocardiogram and demonstrated a mild . No evidence of infection. He has been stable since hospitalization. Indeterminate troponin. 2. Aortic stenosis. Status post balloon valvuloplasty in 10/2018. is mild currently on repeat e chocardiogram. He was discussed with Dr. Torres who felt the patient was high risk for TAVR, but wi ll follow up with Dr. Ramirez on Saturday, 01/01, for further discussion. 3. History of VT. Status post ICD. No significant arrhythmias noted here. His monitoring zone was adjusted to 140 beats per minute. 4. Coronary artery disease. No chest pain. No evidence of ischemia on EKG. We will continue manag ement with statin, Tricor, beta-lucy, and Plavix. 5. Peripheral vascular disease. Continue Plavix, metoprolol. 6. Severe pulmonary hypertension, stable on echocardiogram. No evidence of volume overload. 7. Normocytic anemia. This is thought maybe a possible source of syncope. However, H and H have re mained stable here and he denies any bleeding. 8. Permanent atrial fibrillation, on Coumadin. His INR was supratherapeutic at 3.5. Adjusted his d ose to 2.5 daily. He will hold the dose tonight and have his INR checked tomorrow. 9. Deconditioning. We will have home PT and RN. DISPOSITION: The patient is stable for discharge. I have arranged for home PT and home RN. MEDICATION CHANGES: Changed to Coumadin 2.5 mg daily. FOLLOWUP: 1. Cardiology with Dr. Ramirez. 2. INR on 01/01/2018. PHYSICAL EXAMINATION: VITAL SIGNS: Today, temperature 36.3, blood pressure 164/68, heart rate 50s, respiratory rate 16, 96% on room air. GENERAL: Well appearing, sitting up in bed, smiling, in no ac quileute distress. HEENT: PERRLA. EOMI. Oropharynx clear. CV: Kurt, but regular. EXTREMITIES: No lower extremity edema. LUNGS: Clear. No crackles. ABDOMEN: Soft, nontender, nondistended. Posit michael bowel sounds. : No Brunson. MUSCULOSKELETAL: 5/5 upper and lower extremity strength. NEURO: 2 through 12 intact. PSYCH: Alert and oriented x3. /[id number]/MODL
[2018-01-04] MEDS ORDERED: WARFARIN SODIUM 5 MG TAB PO SCH (16:00)
== END 2017-12-31 13:00 | disposition home health service (06) | DRG 307 ==
LOC: EDUNIT# → OBSVTOIN 15:31 → INTOOBSV 15:31 → F2W 16:36
PROVIDERS: ADMIT Internal Medicine; ATTEND Internal Medicine
DX: I35.0 Nonrheumatic aortic (valve) stenosis (principal); I25.10 Atherosclerotic heart disease of native coronary artery without angina pectoris; I73.9 Peripheral vascular disease, unspecified; I27.20 Pulmonary hypertension, unspecified; D64.9 Anemia, unspecified; I48.2 Chronic atrial fibrillation; I10 Essential (primary) hypertension; E78.5 Hyperlipidemia, unspecified; Z95.810 Presence of automatic (implantable) cardiac defibrillator; Z79.01 Long term (current) use of anticoagulants; W18.39XA Other fall on same level, initial encounter; Y92.015 Private garage of single-family (private) house as the place of occurrence of the external cause
CPT/HCPCS: 97116-GP; 97161-GP; 97165-GO; 97530-GP; G8978-GP-CI; G8979-GP-CH; G8987-GO-CI; G8988-GO-CI; G8989-GO-CI; J1940

== ENCOUNTER → 2018-02-25 | Outpatient (CLI) | payer OTHER | LOC: BHFA 11:30 | PROVIDERS: ATTEND Internal Medicine Cardiovascular Disease | DX: R09.89 Other specified symptoms and signs involving the circulatory and respiratory systems (principal) ==

== ENCOUNTER 2018-03-11 09:50 | Emergency (ER) | payer OTHER ==
--- NOTE | 2018-03-11 10:04 | EDPHY ---
HPI/HX/ROS/PE/MDM Narrative: CHIEF COMPLAINT: Facial abrasion HPI: The patient is an anticoagulated 82 y/o male with significant vascular disease and atrial fibrillation arriving with his complaining of facial injuries secondary to a fall this morning. He says, "I got out of the car, took two steps, and fell down" as he was walking into the hospital for routine lab work. He believes he tripped on the sidewalk and denies preceding symptoms including chest pain, dizziness, dyspnea, or lightheadedness. He has mild pain at the site of right forehead abrasions, but otherwise denies injury or pain, loss of consciousness, weakness, paresthesias, or other complaints. His existing neck pain from a prior fracture is unchanged. REVIEW OF SYSTEMS: Aside from elements discussed in the HPI, a comprehensive 10-point review of systems was reviewed and is negative. PMH: 1. Severe aortic stenosis status post aortic valvuloplasty 2. Severe peripheral vascular disease 3. History of ventricular tachycardia with AICD 4. Bilateral femoral-popliteal bypass 5. Pulmonary hypertension 6. Hypertension 7. Hyperlipidemia 8. Coronary artery disease 9. Renal artery stenosis 10. GI bleed due to AVM 11. Permanent atrial fibrillation on Coumadin 12. Neck fracture Prior medical records reviewed including admission 12/29/17 for syncope. SOCIAL HISTORY: , at bedside. Former smoker. Minimal alcohol. PHYSICAL EXAM: General:Patient is alert, in no acute distress. BP 151/96. Head: 3 abrasion/lacs___ to right forehead. ENT:Eyes are normal to inspection. ENT inspection normal. Neck: Normal inspection. Wearing a non-medical neck cushion. Respiratory:No respiratory distress. Breath sounds normal bilaterally. Cardiovascular: Regular rate and rhythm. Strong peripheral pulses. Normal cap refill. Abdomen:The abdomen is nontender to palpation. There are no peritoneal signs. Back: Normal to inspection. No tenderness to palpation. Skin: Normal color. No rash. Warm and dry. Extremities: Normal appearance. Full range of motion. Neuro: Oriented x3. Normal motor function. Normal sensory function. ED Course: This is an anticoagulated 82 y/o male with significant vascular disease who presents directly after a reported mechanical trip and fall this morning causing facial abrasions. He has minimal pain. He denies any other injuries and has no other visible trauma. Neuro exam is non-focal. Plan for IV, labs, EKG, head CT, and wound care. The 12 lead EKG was interpreted by myself. See hard copy and/or "tracemaster" electronic copy for interpretation. Head CT: negative for acute process. INR elevated at 4.16. [facility]ed with [facility] regarding management. Nat, pharmacist, recommends skipping the next 2 doses of Coumadin, then take 2.5mg daily until he follows up with them next week on 03/18 at 10:30. Procedure: Laceration/abrasion repair. Verbal consent was obtained from the patient. The 1cm macerated abrasion on the right periorbital area was cleaned with standard ED protocol. There were no deep structures involved. The wound was repaired with Dermabond. The wound repair was simple. The procedure was performed by myself, Dr. Tejada. - Data Points Imaging: Discussed imaging studies w/ call center dispatcher Radiologist, I viewed and interpreted images myself Laboratory Results: Laboratory Results 03/11/18 10:30 03/11/18 03/11/18 03/11/18 10:30 10:30 10:30 WBC 3.31 10^3/uL L 10^3/uL (3.80-9.50) RBC 3.74 10^6/uL L 10^6/uL (4.40-6.38) Hgb 12.7 g/dL L g/dL (13.7-17.5) Hct 38.3 % L % (40.0-51.0) MCV 102.4 fL H fL (81.5-99.8) MCH 34.0 pg pg (27.9-34.1) MCHC 33.2 g/dL g/dL (32.4-36.7) RDW 15.7 % H % (11.5-15.2) Plt Count 101 10^3/uL L 10^3/uL (150-400) MPV 11.1 fL fL (8.7-11.7) Neut % (Auto) 62.3 % % (39.3-74.2) Lymph % (Auto) 20.5 % % (15.0-45.0) [place] % (Auto) 14.2 % H % (4.5-13.0) Eos % (Auto) 2.1 % % (0.6-7.6) Baso % (Auto) 0.6 % % (0.3-1.7) Nucleat RBC Rel Count 0.0 % % (0.0-0.2) Absolute Neuts (auto) 2.06 10^3/uL 10^3/uL (1.70-6.50) Absolute Lymphs (auto) 0.68 10^3/uL L 10^3/uL (1.00-3.00) Absolute Monos (auto) 0.47 10^3/uL 10^3/uL (0.30-0.80) Absolute Eos (auto) 0.07 10^3/uL 10^3/uL (0.03-0.40) Absolute Basos (auto) 0.02 10^3/uL 10^3/uL (0.02-0.10) Absolute Nucleated RBC 0.00 10^3/uL 10^3/uL (0-0.01) Immature Gran % 0.3 % % (0.0-1.1) Immature Gran # 0.01 10^3/uL 10^3/uL (0.00-0.10) PT 39.8 SEC H SEC (12.0-15.0) INR 4.16 H (0.83-1.16) APTT 49.3 SEC H SEC (23.0-38.0) Sodium Pending Potassium Pending Chloride Pending Carbon Dioxide Pending Anion Gap Pending BUN Pending Creatinine Pending Estimated GFR Pending Glucose Pending Calcium Pending Troponin I Pending General Time Seen by Provider: 03/11/18 09:55 Initial Vital Signs: Initial Vital Signs Temperature (C) 36.4 C 03/11/18 09:59 Heart Rate 61 03/11/18 09:59 Respiratory Rate 18 03/11/18 09:59 Blood Pressure 151/96 H 03/11/18 09:59 O2 Sat (%) 96 03/11/18 09:59 O2 Delivery Mode Room Air Allergies/Adverse Reactions: metoclopramide [From Reglan] Allergy (Verified 11/05/17 06:53) Home Medications: Medication Instructions Recorded Clopidogrel Bisulfate [Plavix (*)] 75 mg PO DAILY 06/25/13 Ranitidine HCl [Ranitidine HCl 150 150 mg PO BID 08/01/13 mg] Metoprolol Tartrate [Lopressor 25 25 mg PO DAILY@06 #0 tab 11/10/16 mg (*)] Donepezil HCl [Aricept 5 MG (*)] 10 mg PO HS 05/10/17 Metoprolol Tartrate [Lopressor 25 12.5 mg PO DAILY@18 #0 tab 05/14/17 mg (*)] Fenofibrate [Tricor 145 mg (*)] 145 mg PO DAILY 07/31/17 Gabapentin [Neurontin 300 MG (*)] 600 mg PO HS 07/31/17 Atorvastatin Calcium [Lipitor 40 80 mg PO HS 10/11/17 mg (*)] Ferrous Sulfate [Slow Fe 140 MG 140 mg PO DAILY 10/11/17 (*)] Acetaminophen [Tylenol 325mg (*)] 650 mg PO Q6HRS PRN 10/29/17 Memantine HCl [Namenda 5 mg (*)] 5 mg PO BID 12/29/17 traZODone [traZODONE 50MG (*)] 50 mg PO HS 12/29/17 Warfarin Sodium [Coumadin 2.5MG 2.5 mg PO DAILY tab 12/31/17 (*)] Departure - Departure Disposition: Home, Routine, Self-Care Clinical Impression: Fall Qualifiers: Encounter type: initial encounter Qualified Code(s): W19.XXXA - Unspecified fall, initial encounter Facial abrasion Qualifiers: Encounter type: initial encounter Qualified Code(s): S00.81XA - Abrasion of other part of head, initial encounter Condition: Good Instructions: Fall Prevention for Older Adults (ED), Abrasion (ED), Skin Adhesive Care (ED) Additional Instructions: 1. Hold the next two doses of Coumadin. Then take 2.5mg daily until your follow up appointment [facility] next week. 2. You have a follow up appointment with the clinic scheduled for 03/18 at 10:30am. 3. Okay to gently clean wounds with soap and water. Do not scrub surgical glue. It will slowly degrade over time. 4. Return to the ED for severe headache, weakness or numbness on one side of your body, vision changes, speech difficulty, or other worsening of condition. Referrals: Patient,NotPresent [Primary Care Provider] - As per Instructions Report Scribed for: Ash Tejada Report Scribed by: Claritza Maharaj Date of Report: 03/11/18 Time of Report: 10:01 Physician Review and Approval Statement: Portions of this note were transcribed by an ED scribe. I personally performed the history, physical exam, and medical decision making; and confirm the accuracy of the information in the transcribed note.
--- NOTE | 2018-03-11 10:17 | CPEKG ---
Heart Rate: 55 RR Interval: 1091 QRSD Interval: 166 QT Interval: 540 QTC Interval: 517 QRS [place]: -49 T Wave [place]: 139 EKG Severity - ABNORMAL ECG - EKG Impression: AFIB/FLUT AND V-PACED COMPLEXES EKG Impression: LEFT BUNDLE BRANCH BLOCK Electronically Signed By: Ash Tejada 11-Mar-2018 14:31:29
[2018-03-11 10:47] LABS: PLATELET COUNT 101 10^3/uL (150-400)
[2018-03-11 10:59] LABS: INR 4.16 (0.83-1.16); PROTIME(PATIENT) 39.8 SEC (12.0-15.0)
[2018-03-11] MEDS ORDERED: SKIN ADHESIVE (DERMABOND) 1 EACH TP ONE (11:10)
[2018-03-11 12:04] VITALS: BP 184/96
== END 2018-03-11 11:45 | disposition home or self-care (01) ==
LOC: EDUNIT# → EEVIPCON 09:50
PROC: 0HQ1XZZ Repair Face Skin, External Approach (ICD-10-PCS; principal; 2018-03-11)
DX: S01.81XA Laceration without foreign body of other part of head, initial encounter (principal); I10 Essential (primary) hypertension; I25.10 Atherosclerotic heart disease of native coronary artery without angina pectoris; Z87.891 Personal history of nicotine dependence; Z79.01 Long term (current) use of anticoagulants; W01.0XXA Fall on same level from slipping, tripping and stumbling without subsequent striking against object, initial encounter; Y92.480 Sidewalk as the place of occurrence of the external cause; Y99.8 Other external cause status; Y93.89 Activity, other specified

== ENCOUNTER 2018-08-23 19:04 | Inpatient (IN) | payer OTHER ==
--- NOTE | 2018-08-23 19:13 | EDPHY ---
H & P Time Seen by Provider: 08/23/18 19:10 HPI/ROS: CHIEF COMPLAINT: Syncope HISTORY OF PRESENT ILLNESS: 82-year-old male with coronary artery disease and atrial fibrillation presents with [place]. [place] [address] [place] elevation today in [facility] when he had a witnessed syncopal episode. He was apparently unconscious for several minutes. On EMS arrival he was hypoxic, with an oxygen saturation of 80%. He was seen in the [facility] emergency department. Evaluation revealed a new right pleural effusion, otherwise unremarkable including EKG and troponin. He now feels completely back to normal. He was sent to [facility] for admission. REVIEW OF SYSTEMS: complete 10 point ROS reviewed and is negative except for the noted elements in the HPI - Personal History Tetanus Vaccine Date: WITHIN 10 YRS - Medical/Surgical History Hx Asthma: No Hx Chronic Respiratory Disease: No Hx Diabetes: No Hx Cardiac Disease: Yes Hx Renal Disease: No Hx Cirrhosis: No Hx Alcoholism: No Hx HIV/AIDS: No Hx Splenectomy or Spleen Trauma: No Other PMH: Aortic stenosis status post valvuloplasty, HTN, severe pulmonary hypertension, Afib, V-tach status post AICD placement - Social History Smoking Status: Former smoker Alcohol Use: Sober Drug Use: None Additional Social History: - Physical Exam Exam: General Appearance: Alert, pleasant Eyes: Pupils equal and round, no conjunctival pallor or injection ENT, Mouth: Mucous membranes moist Neck: Normal inspection Respiratory: Decreased breath sounds at the right base Cardiovascular: Irregular rate and rhythm Gastrointestinal: Abdomen is soft and nontender Neurological: A&O, nonfocal exam Skin: Warm and dry, no rash Extremities: Bilateral pedal edema, left greater than right Psychiatric: Mood and affect normal Constitutional: Initial Vital Signs Temperature (C) 36.7 C 08/23/18 19:05 Heart Rate 59 L 08/23/18 19:05 Respiratory Rate 16 08/23/18 19:05 Blood Pressure 178/86 H 08/23/18 19:05 O2 Sat (%) 94 08/23/18 19:05 O2 Delivery Mode Room Air O2 (L/minute) 91 Allergies/Adverse Reactions: metoclopramide [From Reglan] Allergy (Verified 08/23/18 19:18) Home Medications: Medication Instructions Recorded Clopidogrel Bisulfate [Plavix (*)] 75 mg PO DAILY 06/25/13 Ranitidine HCl [Ranitidine HCl 150 150 mg PO BID 06/25/13 mg] Donepezil HCl [Aricept 5 MG (*)] 10 mg PO HS 05/10/17 Fenofibrate [Tricor 145 mg (*)] 145 mg PO DAILY 07/31/17 Gabapentin [Neurontin 300 MG (*)] 300 mg PO BID 07/31/17 Atorvastatin Calcium [Lipitor 40 80 mg PO HS 10/11/17 mg (*)] Ferrous Sulfate [Slow Fe 140 MG 140 mg PO DAILY 10/11/17 (*)] Memantine HCl [Namenda 5 mg (*)] 5 mg PO BID 12/29/17 traZODone [traZODONE 50MG (*)] 50 mg PO HS 12/29/17 Warfarin Sodium [Coumadin 2.5MG 2.5 mg PO DAILY tab 12/31/17 (*)] Furosemide [Furosemide] 20 mg PO DAILY@12 08/23/18 Furosemide [Furosemide] 40 mg PO DAILY 08/23/18 Metoprolol Tartrate [Lopressor 50 50 mg PO BID 08/23/18 mg (*)] Sildenafil Citrate [Revatio 20 MG 10 mg PO TIDMEAL 08/23/18 (*)] Medical Decision Making - Diagnostics EKG Interpretation: EKG interpreted by me reveals atrial fibrillation and the paced complexes, rate 65, left bundle branch block interpretation: Abnormal EKG Imaging Results: CT pulmonary angiogram: Right pleural effusion, no pneumonia or pulmonary embolism. Imaging: Discussed imaging studies w/ call center trainer Radiologist ED Course/Re-evaluation: This patient presents after a syncopal episode altitude, associated with hypoxia. X-ray prior to arrival reveals a new right pleural effusion. He is nontoxic appearing, afebrile and normal white blood cell count. Vital signs are normal, including oxygen saturation of 95% on room air. I do not suspect pneumonia in this patient. [employer] was called to interrogate the pacemaker. Pacemaker is functioning normally and no significant dysrhythmia. CT pulmonary angiogram ordered because of new pleural effusion and D-dimer 1.28. No evidence of pulmonary embolism or pneumonia. The hospitalist service was consulted for admission. Differential Diagnosis: Differential diagnosis includes though it is not limited to pneumonia, pneumothorax, pulmonary embolism, aortic dissection, pericarditis, acute coronary syndrome. - Data Points Laboratory Results: Laboratory Results 08/24/18 03:30 08/24/18 03:30 08/24/18 08/24/18 08/24/18 11:53 11:53 11:53 WBC RBC Hgb Hct MCV MCH MCHC RDW Plt Count MPV Neut % (Auto) Lymph % (Auto) [place] % (Auto) Eos % (Auto) Baso % (Auto) Nucleat RBC Rel Count Absolute Neuts (auto) Absolute Lymphs (auto) Absolute Monos (auto) Absolute Eos (auto) Absolute Basos (auto) Absolute Nucleated RBC Immature Gran % Immature Gran # Sodium Potassium Chloride Carbon Dioxide Anion Gap BUN Creatinine Estimated GFR Glucose Calcium Iron TIBC Iron Saturation Ferritin Total Protein (PEP) 6.0 g/dL L g/dL (6.3-8.2) Albumin (PEP) Pending Albumin/Globulin Ratio Pending Orzfu-4-Yhwwzxhky Pending Tagqe-6-Pnpyezdfd Pending Beta Globulins Pending Gamma Globulins Pending M-Gilbert Pending PEP Impression Pending Vitamin B12 Methylmalonic Acid Pending Free [place] LC, Quant Pending Free Lambda LC, Quant Pending Free [place]/Lambda Ratio Pending Hep Bs Antigen Pending Hep B Core Total Ab Pending Hepatitis C Antibody Pending HIV 1&2 Antibody Pending 08/24/18 08/24/18 08/24/18 11:53 03:30 03:30 WBC 2.53 10^3/uL L 10^3/uL (3.80-9.50) RBC 2.72 10^6/uL L 10^6/uL (4.40-6.38) Hgb 9.3 g/dL L g/dL (13.7-17.5) Hct 27.8 % L % (40.0-51.0) MCV 102.2 fL H fL (81.5-99.8) MCH 34.2 pg H pg (27.9-34.1) MCHC 33.5 g/dL g/dL (32.4-36.7) RDW 14.4 % % (11.5-15.2) Plt Count 94 10^3/uL L 10^3/uL (150-400) MPV 10.8 fL fL (8.7-11.7) Neut % (Auto) 44.2 % % (39.3-74.2) Lymph % (Auto) 34.0 % % (15.0-45.0) [place] % (Auto) 17.8 % H % (4.5-13.0) Eos % (Auto) 3.6 % % (0.6-7.6) Baso % (Auto) 0.4 % % (0.3-1.7) Nucleat RBC Rel Count 0.0 % % (0.0-0.2) Absolute Neuts (auto) 1.12 10^3/uL L 10^3/uL (1.70-6.50) Absolute Lymphs (auto) 0.86 10^3/uL L 10^3/uL (1.00-3.00) Absolute Monos (auto) 0.45 10^3/uL 10^3/uL (0.30-0.80) Absolute Eos (auto) 0.09 10^3/uL 10^3/uL (0.03-0.40) Absolute Basos (auto) 0.01 10^3/uL L 10^3/uL (0.02-0.10) Absolute Nucleated RBC 0.00 10^3/uL 10^3/uL (0-0.01) Immature Gran % 0.0 % % (0.0-1.1) Immature Gran # 0.00 10^3/uL 10^3/uL (0.00-0.10) Sodium 140 mEq/L mEq/L (135-145) Potassium 3.7 mEq/L mEq/L (3.3-5.0) Chloride 107 mEq/L mEq/L (97-110) Carbon Dioxide 28 mEq/l mEq/l (22-31) Anion Gap 5 mEq/L L mEq/L (8-16) BUN 40 mg/dL H mg/dL (7-23) Creatinine 1.0 mg/dL mg/dL (0.7-1.3) Estimated GFR > 60 Glucose 96 mg/dL mg/dL (70-100) Calcium 8.8 mg/dL mg/dL (8.5-10.4) Iron 161.0 mcg/dL mcg/dL (49.0-199.0) TIBC 377 ug/dL ug/dL (260-490) Iron Saturation 43 % % (20-55) Ferritin 186.0 ng/mL ng/mL (17.9-464.0) Total Protein (PEP) Albumin (PEP) Albumin/Globulin Ratio Yomgz-6-Oilarpcjb Vfdxq-1-Lomzzqcpd Beta Globulins Gamma Globulins M-Gilbert PEP Impression Vitamin B12 936 pg/mL H pg/mL (239-931) Methylmalonic Acid Free [place] LC, Quant Free Lambda LC, Quant Free [place]/Lambda Ratio Hep Bs Antigen Hep B Core Total Ab Hepatitis C Antibody HIV 1&2 Antibody Medications Given: Clopidogrel Bisulfate (Plavix) 75 mg PO DAILY COUNTS INCLUDE 234 BEDS AT THE [facility] Stop: 02/20/19 10:59 Last Admin: 08/24/18 11:50 Dose: 75 mg Fenofibrate (Tricor) 145 mg PO DAILY DEEPA Stop: 02/20/19 10:59 Last Admin: 08/24/18 11:51 Dose: 145 mg Ferrous Sulfate (Slow Fe) 140 mg PO DAILY DEEPA Stop: 02/20/19 10:59 Last Admin: 08/24/18 11:48 Dose: 140 mg Furosemide (Lasix) 20 mg PO DAILY@12 DEEPA Stop: 02/20/19 11:59 Last Admin: 08/24/18 11:48 Dose: 20 mg Gabapentin (Neurontin) 300 mg PO BID COUNTS INCLUDE 234 BEDS AT THE [facility] Stop: 02/20/19 10:59 Last Admin: 08/24/18 11:48 Dose: 300 mg Memantine (Namenda) 5 mg PO BID COUNTS INCLUDE 234 BEDS AT THE [facility] Stop: 02/20/19 10:59 Last Admin: 08/24/18 11:47 Dose: 5 mg Metoprolol Tartrate (Lopressor) 50 mg PO BID COUNTS INCLUDE 234 BEDS AT THE [facility] Stop: 02/20/19 10:59 Last Admin: 08/24/18 11:48 Dose: 50 mg Sildenafil Citrate (Revatio) 10 mg PO TIDMEAL COUNTS INCLUDE 234 BEDS AT THE [facility] Stop: 02/20/19 11:59 Last Admin: 08/24/18 11:49 Dose: 10 mg Trazodone HCl (Trazodone) 50 mg PO HS PRN PRN Reason: Sleep/Insomnia Stop: 02/19/19 23:08 Last Admin: 08/23/18 23:45 Dose: 50 mg Discontinued Medications Sodium Chloride (Ns) 500 mls @ 1,000 mls/hr IV EDNOW ONE PRN Reason: Protocol Stop: 08/23/18 20:19 Last Admin: 08/23/18 20:15 Dose: Not Given Influenza Virus Vaccine Quadrival (Flulaval Quad [id number] (6mo+)) 0.5 ml IM .ONCE ONE Stop: 08/24/18 11:56 Last Admin: 08/24/18 12:31 Dose: 0.5 ml Pneumococcal 13-Valent Conj Vacc (Prevnar 13 Syringe) 0.5 ml IM .ONCE ONE Stop: 08/24/18 07:31 Last Admin: 08/24/18 09:13 Dose: 0.5 ml Point of Care Test Results: Chemistry 08/23/18 19:24 POC Troponin I 0.06 ng/mL ng/mL (0.00-0.08) Departure - Departure Disposition: [facility] Inpatient Acute Clinical Impression: Syncope Qualifiers: Syncope type: unspecified Qualified Code(s): R55 - Syncope and collapse Condition: Fair
[2018-08-23 19:38] LABS: PLATELET COUNT 108 10^3/uL (150-400)
[2018-08-23] MEDS ORDERED: NS 500 ML IV ONE (19:50)
[2018-08-23] MEDS ORDERED: IOPAMIDOL (ISOVUE 370) 100 ML BTL IV ONE (20:04)
--- NOTE | 2018-08-23 20:20 | PDGENHP ---
History and Physical - Chief Complaint Syncope - History of Present Illness Mr. Tera Israel is a 82 yo M with a PMHx of Severe s/p balloon valvuloplasty, PVD, VT s/p ICD, CAD with TO SVG to the RCA in 04/2017, permanent a.fib on Coumadin, severe PHTN, and HTN who presents to [facility] after a syncopal event today. He was visiting [facility] and was sitting when he lost consciousness. He reports no symptoms prior to LOC. He denies any recent concerning symptoms such as chest pain, SOB, LH/dizziness, f/c, n/v, d/c. He was apparently unconscious for approximately 5 minutes according to his . On EMS arrival he was hypoxic, with an oxygen saturation of 80%. He was seen in [place] ED where the evaluation revealed a new right pleural effusion, otherwise unremarkable including EKG and troponin. He now feels completely back to normal. Of note, he has had two admissions over the past year for syncope, one with a dens fracture. During his last admission, his device was interrogated and did not show any ventricular arrhythmias or RVR. An echo showed a EF of 67 % with mild (mean valve gradient of 17), and RVSP of 63-68. History Information - Allergies/Home Medication List Allergies/Adverse Reactions: metoclopramide [From Reglan] Allergy (Verified 08/23/18 19:18) Home Medications: Clopidogrel Bisulfate [Plavix (*)] 75 mg PO DAILY 06/25/13 [Last Taken 12/28/17] Ranitidine HCl [Ranitidine HCl 150 mg] 150 mg PO BID 06/25/13 [Last Taken 09:00] Donepezil HCl [Aricept 5 MG (*)] 10 mg PO HS 05/10/17 [Last Taken 12/28/17] Fenofibrate [Tricor 145 mg (*)] 145 mg PO DAILY 07/31/17 [Last Taken 12/29/17] Gabapentin [Neurontin 300 MG (*)] 600 mg PO HS 07/31/17 [Last Taken 12/28/17] Atorvastatin Calcium [Lipitor 40 mg (*)] 80 mg PO HS 10/11/17 [Last Taken ] Ferrous Sulfate [Slow Fe 140 MG (*)] 140 mg PO DAILY 10/11/17 [Last Taken ] Acetaminophen [Tylenol 325mg (*)] 650 mg PO Q6HRS PRN 10/29/17 [Last Taken 12/28] Memantine HCl [Namenda 5 mg (*)] 5 mg PO BID 12/29/17 [Last Taken 12/29/17 09:00 ] traZODone [traZODONE 50MG (*)] 50 mg PO HS 12/29/17 [Last Taken 12/28/17] I have personally reviewed and updated: family history, medical history, social history, surgical history - Past Medical History atrial fibrillation, coronary artery disease, dementia, hypertension, hyperlipidemia, peripheral artery disease, TIA - Surgical History Reports: vascular surgery - Family History Positive for: non-pertinent - Social History Smoking Status: Former smoker Alcohol Use: Sober Drug Use: None Review of Systems Review of Systems: ROS: 10pt was reviewed & negative except for what was stated in HPI & below Physical Exam Physical Exam: Temp Pulse Resp BP Pulse Ox 36.7 C 59 L 16 178/86 H 94 08/23/18 19:05 08/23/18 19:05 08/23/18 19:05 08/23/18 19:05 08/23/18 19:05 Constitutional: no apparent distress Eyes: PERRL Ears, Nose, Mouth, Throat: moist mucous membranes Cardiovascular: irregularly irregular Respiratory: no respiratory distress, clear to auscultation Gastrointestinal: soft, non-tender abdomen Genitourinary: no bladder tenderness Skin: warm Musculoskeletal: no muscle tenderness Neurologic: AAOx3 Psychiatric: interacting appropriately Lab Data & Imaging Review 08/23/18 19:20 08/23/18 19:20 WBC 3.01 10^3/uL (3.80-9.50) L 08/23/18 19:20 RBC 2.91 10^6/uL (4.40-6.38) L 08/23/18 19:20 Hgb 10.2 g/dL (13.7-17.5) L 08/23/18 19:20 Hct 29.9 % (40.0-51.0) L 08/23/18 19:20 MCV 102.7 fL (81.5-99.8) H 08/23/18 19:20 MCH 35.1 pg (27.9-34.1) H 08/23/18 19:20 MCHC 34.1 g/dL (32.4-36.7) 08/23/18 19:20 RDW 14.6 % (11.5-15.2) 08/23/18 19:20 Plt Count 108 10^3/uL (150-400) L 08/23/18 19:20 MPV 11.1 fL (8.7-11.7) 08/23/18 19:20 Neut % (Auto) 50.2 % (39.3-74.2) 08/23/18 19:20 Lymph % (Auto) 30.9 % (15.0-45.0) 08/23/18 19:20 Kern % (Auto) 14.6 % (4.5-13.0) H 08/23/18 19:20 Eos % (Auto) 3.3 % (0.6-7.6) 08/23/18 19:20 Baso % (Auto) 0.7 % (0.3-1.7) 08/23/18 19:20 Nucleat RBC Rel Count 0.0 % (0.0-0.2) 08/23/18 19:20 Absolute Neuts (auto) 1.51 10^3/uL (1.70-6.50) L 08/23/18 19:20 Absolute Lymphs (auto) 0.93 10^3/uL (1.00-3.00) L 08/23/18 19:20 Absolute Monos (auto) 0.44 10^3/uL (0.30-0.80) 08/23/18 19:20 Absolute Eos (auto) 0.10 10^3/uL (0.03-0.40) 08/23/18 19:20 Absolute Basos (auto) 0.02 10^3/uL (0.02-0.10) 08/23/18 19: Absolute Nucleated RBC 0.00 10^3/uL (0-0.01) 08/23/18 19:20 Immature Gran % 0.3 % (0.0-1.1) 08/23/18 19: Immature Gran # 0.01 10^3/uL (0.00-0.10) 08/23/18 19:20 D-Dimer 1.24 ug/mLFEU (0.00-0.50) H 08/23/18 19:20 Sodium 139 mEq/L (135-145) 08/23/18 19:20 Potassium 4.6 mEq/L (3.3-5.0) 08/23/18 19:20 Chloride 106 mEq/L (97-110) 08/23/18 19:20 Carbon Dioxide 28 mEq/l (22-31) 08/23/18 19:20 Anion Gap 5 mEq/L (8-16) L 08/23/18 19:20 BUN 41 mg/dL (7-23) H 08/23/18 19:20 Creatinine 1.0 mg/dL (0.7-1.3) 08/23/18 19:20 Estimated GFR > 60 08/23/18 19:20 Glucose 96 mg/dL (70-100) 08/23/18 19:20 Calcium 8.7 mg/dL (8.5-10.4) 08/23/18 19:20 POC Troponin I 0.06 ng/mL (0.00-0.08) 08/23/18 19:24 NT-Pro-B Natriuret Pep 9980 pg/mL (0-450) H 08/23/18 19:20 Visualized and Interpreted EKG results: Yes EKG Interpretation: Positive for: NS ST wave abnormalities Assessment & Plan Assessment: Syncope (Acute) - Has had multiple episodes in the past with unremarkable w/u - Differential includes arrhythmia given hx of VT s/p ICD, , vasovagal, orthostatic, PE - [employer] contacted by ED MD for interrogation, f/u results - Orthostatic vital signs ordered - BUN elevated on admission, s/p 500 cc in ED - Will monitor on telemetry - CTA pending due to elevated D-dimer and hypoxia on EMS arrival - Will repeat TTE, last one 12/2017 - Consider cardiology consult in the AM given hx of syncope and multiple comorbidities - PT/OT ordered s/p balloon valvuloplasty - Per previous cardiology notes "the patient was discussed with Dr. Montelongo who felt the patient was high risk for TAVR" - Repeat TTE as above VT s/p ICD - ICD interrogation and telemetry as above CAD - Troponin negative on admission, EKG with no acute ST-T wave changes - Continue medical management with Lipitor, Tricor, Metoprolol, and Plavix Permanent a.fib - Seen on EKG - Continue home Metoprolol and Coumadin Dementia - Continue home Aricept and Memantidine FEN: S/p 500 cc in ED PPx: on Coumadin Diet: Cardiac Code: FULL Dispo: Admit to Observation, PCU
[2018-08-23 20:22] LABS: INR 2.92 (0.83-1.16); PROTIME(PATIENT) 30.4 SEC (12.0-15.0)
[2018-08-23] MEDS ORDERED: ACETAMINOPHEN 325 MG TAB PO PRN (20:22)
[2018-08-23] MEDS ORDERED: ONDANSETRON DISINTEGRATING 4 MG TAB PO PRN (20:22)
[2018-08-23] MEDS ORDERED: ONDANSETRON 4 MG/2 ML VIAL IVP PRN (20:22)
[2018-08-23] MEDS ORDERED: hydrALAZINE 20 MG/ML VIAL IVP PRN (20:39)
--- NOTE | 2018-08-23 20:49 | CPEKG ---
Test Reason : OPEN Blood Pressure : / mmHG Vent. Rate : 065 BPM Atrial Rate : 093 BPM P-R Int : 061 ms QRS Dur : 178 ms QT Int : 538 ms P-R-T Axes : 000 012 204 degrees QTc Int : 560 ms Afib/flut and V-paced complexes Left bundle branch block Confirmed by Abigail Rose ([id number]) on 08/23/2018 8:48:27 PM Referred By: Confirmed By:Abigail Rose
[2018-08-23] MEDS ORDERED: traZODone 50 MG TAB PO PRN (23:09)
[2018-08-24 04:20] LABS: PLATELET COUNT 94 10^3/uL (150-400)
[2018-08-24] MEDS ORDERED: PNEUMOC 13-VAL CONJ-DIP CRM/PF 0.5 ML SYR IM ONE (07:30)
[2018-08-24] MEDS: MEMANTINE HCL 5 MG TAB PO SCH ×2 (11:47→21:19)
[2018-08-24] MEDS: FERROUS SULFATE 140 MG TAB.ER PO SCH (11:48)
[2018-08-24] MEDS: METOPROLOL TARTRATE 50 MG TAB PO SCH ×2 (11:48→21:21)
[2018-08-24] MEDS: FUROSEMIDE 20 MG TAB PO SCH (11:48)
[2018-08-24] MEDS: GABAPENTIN 300 MG CAP PO SCH ×2 (11:48→21:19)
[2018-08-24] MEDS: SILDENAFIL CITRATE 20 MG TAB PO SCH ×2 (11:49→17:55)
[2018-08-24] MEDS: CLOPIDOGREL BISULFATE 75 MG TAB PO SCH (11:50)
[2018-08-24] MEDS: FENOFIBRATE 145 MG TAB PO SCH (11:51)
--- NOTE | 2018-08-24 12:13 | HOSPPROG ---
Hospitalist Progress Note Assessment/Plan: 82-year-old man with a history of CAD, severe status post balloon valvuloplasty, peripheral vascular disease and V-tach status post ICD placement who is admitted with syncope. He feels back to baseline today with no further symptoms. He had a syncopal event while standing from a sitting position at [facility] he was found to be hypoxic at the time. # syncope, Concerning given his severe which has progressed by ECHO over the last month * Continue to monitor and discuss with Cardiology in am re: TAVR * due to worsening aortic stenosis in the setting of syncope and respiratory failure he will need an additional midnight stay. # acute respiratory failure currently oxygen needs are stable. This did occur at altitude. Currently his oxygen needs at rest are over 90, he minimally desaturates with exertion. He does have a large pleural effusion noted on CT scan * Unlcear how symptomatic as he denies any symptoms with exertion. * Oxygen ranges from 87-96% with exertion and may be due to measurement error. * Will defer to cardiology re: thoracentesis in future as he is at risk due to anticoagulation and will continue diuretics as tolerated by valve. # pancytopenia, concerning for MDS. Will have Oncology see him and schedule follow-up visits as an outpatient. # coronary artery disease with negative troponins, asymptomatic # severe aortic stenosis, status post valvuloplasty. * Repeat echo shows progression of aortic stenosis * Discussed with Cardiology regarding possibleTAVR in a.m. # pulmonary hypertension, repeat echo to follow. Patient anticoagulation so risk of embolism is low * Continue Viagra # systemic hypertension, resume home meds and monitor adjust as able. May be contributing to his pulmonary hypertension. # DVT prophylaxis: On warfarin Subjective: Patient new to me and chart reviewed. Reviewed old chart and discussed with Cardiology. Patient feels great. He says he is at baseline and is ambulating without shortness of breath or dizziness. He was noted to be orthostatic by blood pressure this morning Objective: Vital Signs Temp Pulse Resp BP Pulse Ox 36.2 C 55 L 16 163/73 H 98 08/24/18 11:44 08/24/18 11:44 08/24/18 11:44 08/24/18 11:44 08/24/18 11:44 Laboratory Results 08/24/18 03:30 08/24/18 03:30 08/23/18 08/24/18 08/25/18 05:59 05:59 05:59 Intake Total 100 Balance 100 PT 30.4 SEC (12.0-15.0) H 08/23/18 19:20 INR 2.92 (0.83-1.16) H 08/23/18 19:20 ICD10 Worksheet Patient Problems: Problems Problem Status Onset Syncope Acute Closed C2 fracture Acute Forehead laceration Acute Atrial fibrillation Acute PVD (peripheral vascular disease) Acute Ventricular tachycardia Acute Occlusion of left internal carotid artery Acute Acute ischemic stroke Acute
--- NOTE | 2018-08-24 12:37 | ECHO ---
[email or web address] [address] [address] Main: [phone] Fax: [email or web address] Echocardiogram Name: OLIVIA VARGAS MR#: [id number] Study Date: 08/24/2018 Study Time: 11:13 AM Date of : 1935 Age: 82 year(s) Height: 177.8 cm (70 in.) Weight: 63.5 kg (140 lb.) BSA: 1.79 m2 Gender: Male Examination: Echo Indication: Cardiac: syncope Image Quality: Adequate Contrast: Requested by: Bakari Cordova BP: 154 mmHg/73 mmHg Heart Rate: Rhythm: Indication: Cardiac: syncope Procedure Staff [employer] Weaver: Rhea Baxter [facility] Reading Physician: Elroy St MD Requesting Provider: Conclusions: Normal size left ventricle. Concentric LV hypertrophy. Normal global systolic LV function. The ejection fraction is visually estimated to be 60 %. Diastolic dysfunction is present. . There is a pacemaker lead noted in the right ventricle. The left atrium is severely dilated. The right atrium is severely dilated. Moderate to severe mitral regurgitation. The aortic valve is tri-leaflet. Severe aortic valve calcification is present. Severe calcific aortic valve stenosis. Mean aortic valve gradient 46. Severe tricuspid regurgitation is present. Right ventricular systolic pressure measures 89mmHg. Mild pulmonic valve regurgitation is noted. Normal size ascending aorta measuring 2.7 cm. Trivial pericardial effusion. There is a pleural effusion present. Measurements: Chambers Valvular Assessment AV/MV Valvular Assessment TV/PV Normal Normal Normal Name Value Range Name Value Range Name Value Range Ao Carla (2D): 3.2 cm (1.4 cm-2.6 AV Vmax: 4.10 m/s (1 m/s-1.7 TR Vmax: 4.45 mm/s ( - ) cm) m/s) TR PGmax: 79 mmHg ( - ) IVSd (2D): 1.4 cm (0.6 cm-1.1 AV maxP mmHg ( - ) syst. PAP: 89 mmHg ( - ) cm) AV meanP mmHg ( - ) PV Vmax: 0.80 m/s (0.6 m/s-0.9 LVDd (2D): 4.6 cm (4.2 cm-5.9 MACK (VTI): 0.6 cm ( - ) m/s) cm) Patient: OLIVIA VARGAS Study Date: 08/24/2018 Page 1 of 3 11:13 AM LVDs (2D): 3.5 cm (2.1 cm-4 AR (PHT): 559 ms ( - ) PV PGmax: 3 mmHg ( - ) cm) MV E Vmax: 1.05 m/s ( - ) LVPWd (2D): 1.4 cm (0.6 cm-1 MV A Vmax: 0.42 m/s ( - ) cm) MV E/A: 2.50 ( - ) LVOTd 2.1 cm 2.1 cm mm MV PHT: 0.054 s ( - ) LVEF (BP): 54 % (>=55 %) MVA (PHT): 4.1 s ( - ) Visual EF: 60 % RVDd(2D): 4.8 cm (1.9 cm-3.8 cmmm) Continued Measurements: Chambers Valvular Assessment AV/MV Valvular Assessment TV/PV Name Value Name Value Name Value LADs: 6.0 cm MV DecTime: 165 m/s CVP (est.): 10 mmHg LADs Lon.7 cm MV E' Septal: 0.06 m/s LA Area: 47.1 cm2 MV E/E' Septal: 16.80 LA Volume: 220 ml MV E/E' Lateral: 11.80 LA Volume Index: 122.9 ml/m2 MR ERO: 0.100 cm2 MR PISA radius: 5 mm MR Reg. Volume: 25 ml AR Vmax: 3.41 cm/s AR VTI: 204.0 cm Additional Vessels Name Value Ao Ascendin.7 cm Inferior Vena Cava: 1.9 cm Findings: Left Ventricle: Normal size left ventricle. Concentric LV hypertrophy. Normal global systolic LV function. The ejection fraction is visually estimated to be 60 %. No regional wall motion abnormality. Diastolic dysfunction is present. . Right Ventricle: Normal size right ventricle. Normal RV function. There is a pacemaker lead noted in the right ventricle. Left Atrium: The left atrium is severely dilated. Right Atrium: The right atrium is severely dilated. Mitral Valve: The mitral valve is normal in appearance and function. Mild mitral valve leaflet calcification is present. No mitral stenosis is present.There is flow reversal in the pulmonary veins consistent with significant mitral regurgitation. Moderate to severe mitral regurgitation. Aortic Valve: The aortic valve is tri-leaflet. Severe aortic valve calcification is present. Severe calcific aortic valve stenosis. Mean aortic valve gradient 46. Tricuspid Valve: The tricuspid valve is normal in appearance and function. Severe tricuspid regurgitation is present. The pulmonary artery pressure is severely increased. Right ventricular systolic pressure measures 89mmHg. Pulmonic Valve: The pulmonic valve is normal in appearance and function. Mild pulmonic valve regurgitation is noted. Aorta: The aorta is normal. Normal size aortic root measuring 3.2 cm. Normal size ascending aorta measuring 2.7 cm. IVC: The IVC is normal sized. Patient: OLIVIA VARGAS Study Date: 08/24/2018 Page 2 of 3 11:13 AM Pericardium: Trivial pericardial effusion. There is a pleural effusion present. (No Signature Object) Patient: OLIVIA VARGAS Study Date: 08/24/2018 Page 3 of 3 11:13 AM [id number]
--- NOTE | 2018-08-24 13:48 | ASMTCMCOM ---
CM Note CM Note Notes: Reviewed pt in rounds, he was brought to ER by EMS after syncopal episode in [facility]. He had dementia and lives at home with his . Per pt's they just finished with [employer], PT recommending to continue with home PT, CM will send referral. DC Plan: Home Care Date Signed: 08/24/2018 01:48 PM Electronically Signed By:Alma Em RN
--- NOTE | 2018-08-24 16:07 | PDMN ---
Medical Necessity Medical necessity: Change to IP, as of 08/24/18, per MD; los >2 mn for ongoing management of worsening aortic stenosis in the setting of syncope & acute respiratory failure w/large pleural effusion, as well as pancytopenia concerning for myelodysplastic syndrome; requiring further monitoring, Cardiology consult w/possible TAVR & Oncology consult; comorbid advanced age, CAD, PVD, V-tach s/p ICD placement
--- NOTE | 2018-08-24 18:20 | GCON ---
INPATIENT HEMATOLOGY CONSULTATION DATE OF CONSULTATION: 08/24/2018 REQUESTING PHYSICIAN: Dr. Crystal Reed. REASON FOR CONSULTATION: Pancytopenia. HISTORY OF PRESENT ILLNESS: The patient is an 82-year-old man with severe aortic stenosis and a history of chronic atrial fibrillation, who presents with syncope. He has had syncope numerous times over the past several years and the cause is felt to be cardiogenic. On this admission, it was noted that he had low blood counts. His hemoglobin is 9.3, white cell 2.53 with 1.12 neutrophils , MCV 102.2, and platelet count of 94. Looking back at the medical record, his counts have been trending down very slowly for the past several years. He does have a history of GI bleeding, thought to be related to his Coumadin, but no source has been found, and he does take oral iron. He has generally been feeling well aside from the syncopal episodes. His activity level, however, is very limited and he spends most of his time sitting in a chair during the day. He is able to get dressed with some assistance. He is able to feed himself. He would be unable to walk 200 feet without stopping to rest. He denies fevers , chills, night sweats, bleeding, or recent infections. PAST MEDICAL HISTORY: 1. Critical aortic stenosis, status post valvuloplasty. 2. Chronic atrial fibrillation. CURRENT MEDICATIONS: Include Lipitor, Plavix, Aricept, Pepcid, fenofibrate, ferrous sulfate, Lasix, gabapentin, hydralazine, memantine, metoprolol, trazodone, and warfarin. ALLERGIES: He is allergic to Reglan. FAMILY HISTORY: Noncontributory. SOCIAL HISTORY: He has a remote smoking history. Does not drink alcohol. Lives with his . REVIEW OF SYSTEMS: Aside from pertinent positives in HPI, a 14-point review of systems is negative. EXAMINATION: VITAL SIGNS: Temperature was 37.1, blood pressure 111/57, heart rate 57, oxygen saturation 92% on room air. GENERAL: He was an elderly appearing man in no acute distress. HEENT: Sclerae anicteric. Oropharynx clear. NECK: Supple without lymphadenopathy. LUNGS: Clear to auscultation bilaterally, although there were diminished breath sounds at the base on the right. CARDIAC: There was a crescendo/decrescendo murmur. No gallops or rubs. ABDOMEN: Normoactive bowel sounds. Nontender. EXTREMITIES: 1+ edema. SKIN: No rashes. NEUROLOGICAL: He is alert and oriented x3. Strength and sensation were grossly intact. Gait was not tested. LABORATORY DATA: CBC was reviewed in the HPI section. Basic metabolic panel was normal. BNP 9980. Ferritin 186, iron saturation 43. Vitamin B12 is 936. IMPRESSION: This is an 82-year-old man with significant cardiac history, presenting with syncope. Incidentally, he is noted to have mild pancytopenia. The anemia could be contributing somewhat to his cardiac function, but does not likely explain all of his symptoms. Nevertheless, this problem does appear to be slowly progressive and may be affecting his quality of life and is worth investigating. The differential diagnosis is broad. He does not appear to be deficient in iron or B12. He could have multiple myeloma or myelodysplastic syndrome. I sent some additional laboratory work today to evaluate for these possibilities. A bone marrow biopsy may be necessary at some point to definitively establish a diagnosis. Based on his age and comorbidities, I think any therapy of whatever the underlying condition is should be directed at improving quality of life. I do not think the pleural effusion is related, though if it is tapped, it would be worth sending for studies including cell count, total protein, and LDH. According to the hospitalist, he will likely be discharged in the next day or so. I would like to see him in clinic in a week or two to review the blood work that was performed today and is currently pending and to determine if additional steps are necessary for his evaluation. Thank you for this consultation. /[id number]/MODL MTDD
[2018-08-24] MEDS: DONEPEZIL HCL 5 MG TAB PO SCH (21:19)
[2018-08-24] MEDS: FAMOTIDINE 20 MG TAB PO SCH (21:19)
[2018-08-24] MEDS: traZODone 50 MG TAB PO SCH (21:19)
[2018-08-24] MEDS: ATORVASTATIN CALCIUM 40 MG TAB PO SCH (21:19)
[2018-08-25 04:12] LABS: INR 2.91 (0.83-1.16); PROTIME(PATIENT) 30.3 SEC (12.0-15.0)
[2018-08-25] MEDS: FAMOTIDINE 20 MG TAB PO SCH ×2 (09:55→21:13)
[2018-08-25] MEDS: FENOFIBRATE 145 MG TAB PO SCH (09:55)
[2018-08-25] MEDS: SILDENAFIL CITRATE 20 MG TAB PO SCH ×3 (09:56→18:50)
[2018-08-25] MEDS: CLOPIDOGREL BISULFATE 75 MG TAB PO SCH (09:57)
[2018-08-25] MEDS: WARFARIN SODIUM 2.5 MG TAB PO SCH (09:57)
[2018-08-25] MEDS: MEMANTINE HCL 5 MG TAB PO SCH ×2 (09:57→21:14)
[2018-08-25] MEDS: FERROUS SULFATE 140 MG TAB.ER PO SCH (09:57)
[2018-08-25] MEDS: GABAPENTIN 300 MG CAP PO SCH ×2 (09:57→21:14)
[2018-08-25] MEDS: METOPROLOL TARTRATE 50 MG TAB PO SCH ×2 (09:57→21:14)
[2018-08-25] MEDS: FUROSEMIDE 40 MG TAB PO SCH (09:58)
[2018-08-25] MEDS: FUROSEMIDE 20 MG TAB PO SCH (12:38)
--- NOTE | 2018-08-25 13:44 | HOSPPROG ---
Hospitalist Progress Note Assessment/Plan: 82-year-old man with a history of CAD, severe status post balloon valvuloplasty, peripheral vascular disease and V-tach status post ICD placement who is admitted with syncope. He feels back to baseline today with no further symptoms. He had a syncopal event while standing from a sitting position at [facility] he was found to be hypoxic at the time. # syncope, Concerning given his severe which has progressed by ECHO over the last month * Unclear if related to severe pulmonary htn, hypoxia or severe * Pt is not surgical candidate. # acute respiratory failure currently oxygen needs are stable. This did occur at altitude. Currently his oxygen needs at rest are over 90, he minimally desaturates with exertion. He does have a large pleural effusion noted on CT scan * Unlcear how symptomatic as he denies any symptoms with exertion. * Oxygen ranges from 87-96% with exertion and may be due to measurement error. * Doubt pleural effusion is symptomatic # pancytopenia, concerning for MDS. Pt is now interested in Hospice, will defer fu with oncology to pt and family. # coronary artery disease with negative troponins, asymptomatic # severe aortic stenosis, status post valvuloplasty. * No TAVR candidate or open candidate. * long discussion with coating engineer and He recommend hospice, I will order. # pulmonary hypertension, severe. # systemic hypertension, resume home meds and monitor adjust as able. May be contributing to his pulmonary hypertension. # DVT prophylaxis: On warfarin Subjective: Pt with cognitive issues, discussed with , poor prognosis and recommend hospice. Family will meet with hospice prior to discharge. Objective: Vital Signs Temp Pulse Resp BP Pulse Ox 36.8 C 134 H 18 141/53 H 94 08/25/18 04:00 08/25/18 07:40 08/25/18 04:00 08/25/18 12:59 08/25/18 07:40 08/24/18 08/25/18 08/26/18 05:59 05:59 05:59 Intake Total 650 Balance 650 PT 30.3 SEC (12.0-15.0) H 08/25/18 03:45 INR 2.91 (0.83-1.16) H 08/25/18 03:45 - Time Spent With Patient Time Spent with Patient: greater than 25 minutes Time Spent with Patient: Greater than 25 minutes spent on this patients care, greater than 50% of time spent counseling, educating, and coordinating care regarding the above mentioned plan. - Physical Exam Constitutional: no apparent distress Cardiovascular: regular rate and rhythym, systolic murmur Respiratory: no respiratory distress, reduced air movement ICD10 Worksheet Patient Problems: Problems Problem Status Onset Syncope Acute Closed C2 fracture Acute Forehead laceration Acute Atrial fibrillation Acute PVD (peripheral vascular disease) Acute Ventricular tachycardia Acute Occlusion of left internal carotid artery Acute Acute ischemic stroke Acute
--- NOTE | 2018-08-25 15:28 | ASMTCMCOM ---
CM Note CM Note Notes: 08/25/2018 Case Management Note Met w/pt, Carmen [phone] and Daughter Laney [phone] to discuss hospice recommendation. Discussed agency options, family chose [facility] as they are considering palliative initially with home care and then shifting to hospice. Faxed referral to [facility]. Brown to meet with family at 10 am on SaturdayAug.26 here at [facility]. Case Management d/c poc: to be determined Case management to follow Date Signed: 08/25/2018 03:27 PM Electronically Signed By:Amelia Steel RN
--- NOTE | 2018-08-25 18:51 | GHP ---
DATE OF ADMISSION: 08/24/2018 REFERRING PHYSICIAN: Crystal Reed MD CHIEF COMPLAINT: We have been asked by Dr. Reed to evaluate the patient with an episode of syncope. HISTORY OF PRESENT ILLNESS: The patient is an 82-year-old gentleman with a complex medical history, including ventricular tachycardia, coronary artery disease, aortic stenosis, severe pulmonary hyperte nsion, and vascular dementia who presents with an episode of syncope. The patient was in his usual [facility] until the day of admission, when he went with his family to visit [facility]. Patient and his family decided to go to the top of [address] to see the views. Radha rtly after arriving to the top of [address], the patient sat at a nearby bench and was witness ed to have an episode of syncope. Emergency bystanders activated EMS, and when EMS arrived, patient was noted to be hypoxemic and hypertensive. He responded with a sternal rub. He was brought to the emergency department for further evaluation. We have been asked to help in the further management of this patient. This is the patient's third episode of syncope over the last year. His first episode occurred in Jul. At that time, there were no ventricular arrhythmias noted on his ICD. He was noted to have moderate to severe aortic stenosis, as well as severe pulmonary hypertension. Patient jack vargas underwent balloon valvuloplasty of his aortic valve in October of 2017, for severe aortic steno sis. In December of 2017, patient had another episode of syncope. Interrogation of his ICD demonstr ated no significant arrhythmias. Echocardiogram at this time demonstrated no significant aortic sten osis. It was felt that the patient's episode of syncope was likely combination of pulmonary hyperten olga lidia and diuresis. Since this time, patient has noted labile blood pressures with both high and low blood pressure readings being noted at home. Patient has been taking his medications consistently in dicating a probable component of autonomic insufficiency. The patient denies symptoms of chest pain, palpitations, orthopnea, and PND. PAST MEDICAL HISTORY: 1. Aortic stenosis. 2. Chronic atrial fibrillation. 3. Coronary artery disease. 4. Hypertension. 5. Hyperlipidemia. 6. Pulmonary hypertension. 7. Peripheral vascular disease. 8. Vascular dementia. 9. Ventricular tachycardia, status post ICD. MEDICATIONS: Please see medicine reconciliation form. SOCIAL HISTORY: Patient lives at home with his . He does not smoke. He denies problems with al cohol. FAMILY HISTORY: Noncontributory. REVIEW OF SYSTEMS: 10-point review of systems is negative, except as noted in HPI. PHYSICAL EXAM: GENERAL: Patient is resting comfortably in his chair. He does not appear to be in a cute distress. VITAL SIGNS: Temperature is afebrile. Pulse is 86, blood pressure is 180/69, respir atory rate is 14, SaO2 is 94% on room air. HEENT: Normocephalic atraumatic. Extraocular muscles in tact. NECK: No JVD. No bruits. LUNGS: Diminished breath sounds at the right base. CARDIOVASCULA R: Regular rate and rhythm. S1, S2. Late-peaking systolic murmur is noted. ABDOMEN: Soft, nonten nataliya. Normoactive bowel sounds. EXTREMITIES: 2+ edema bilaterally. SKIN: Evidence of stasis madden es. NEURO: Patient is disoriented to place and time. LABORATORY/IMAGING: White blood cell count is 2.53, hemoglobin is 9.3, hematocrit is 27.8, platelet count is 94. Sodium 140, potassium 3.7, chloride 107, CO2 28, BUN 40, creatinine 1.0. Troponin with in normal limits x1. BNP is elevated at 9988. EKG demonstrates atrial fibrillation with ventricular pacing. CT of chest and thorax demonstrates no evidence of thromboembolic disease. Patient does have a large right pleural effusion. Echocardiogram demonstrates preserved left ventricular systolic function with severe aortic stenosis. The mean gradient is 46 mmHg. ASSESSMENT/PLAN: The patient is an 82-year-old gentleman with return: 1. Syncope. Patient presents with a third episode of syncope over the last year. No ventricular ar rhythmias have been identified on ICD evaluation. Potential precipitating factors, include severe ao rtic stenosis, severe pulmonary hypertension, and autonomic insufficiency. Will address these as out lined below. 2. Aortic stenosis. Patient has a history of severe aortic stenosis. He is status post balloon maggie vuloplasty on 11/05/2017. His most recent echocardiogram demonstrates progression to severe aortic s tenosis once again. The aortic stenosis is likely not explaining all of his episodes of syncope as h is second episode of syncope occurred after balloon valvuloplasty and there was no significant gradie nt on echocardiogram. Patient is not felt to be a good transcatheter aortic valve replacement candid ate given peripheral vascular disease and underlying dementia. Similarly, patient is not felt to be a good surgical candidate for these reasons, as well as other multiple comorbidities. 3. Chronic atrial fibrillation. Patient has chronic atrial fibrillation with a history of left atri al appendage clot. He has been managed with a rate control and anticoagulation strategy. Will linda nue current therapy. 4. Coronary artery disease. Patient has known coronary artery disease with a chronic total occlusio n of his right coronary artery. This is unchanged from previous. He denies symptoms of angina. Max l continue secondary prevention. 5. Hypertension. The patient has a history of hypertension. More recently, he has noted labile hyp ertension likely representing a component of autonomic insufficiency. Will tolerate higher blood pre ssure readings in order to prevent low blood pressure readings, which may result in fall and further disability. 6. Hyperlipidemia. Patient has a history of hyperlipidemia. He is on atorvastatin 80 mg daily. He is due for FLP and LFTs. 7. Peripheral vascular disease. Patient has peripheral vascular disease and is status post left car otid endarterectomy, right carotid endarterectomy, right femoral-popliteal bypass, and left femoral p osterior tibial bypass grafting. He continues to have symptoms of claudication, but denies poor woun d healing. 8. Vascular dementia. Patient has vascular dementia with fairly significant short-term memory loss. DISPOSITION: I had a long talk with the patient and his regarding his current medical condition , most notably severe aortic stenosis and severe pulmonary hypertension. Discussed that there are no good long-term treatment strategies for these conditions in his situation. Discussed the option of repeat valvuloplasty with the idea that this would be a short-term correction of his aortic stenosis and would likely recur sometime within the next 6 months. Also discussed the option of hospice with patient and his family they would like to pursue this a little further. Will discuss with patient on ce they have had a chance to talk with hospice. /[id number]/MODL
[2018-08-25] MEDS: ATORVASTATIN CALCIUM 40 MG TAB PO SCH (21:14)
[2018-08-25] MEDS: DONEPEZIL HCL 5 MG TAB PO SCH (21:14)
[2018-08-25] MEDS: traZODone 50 MG TAB PO SCH (21:14)
[2018-08-26 04:28] LABS: INR 2.87 (0.83-1.16)
[2018-08-26] MEDS: FENOFIBRATE 145 MG TAB PO SCH (10:08)
[2018-08-26] MEDS: SILDENAFIL CITRATE 20 MG TAB PO SCH ×2 (10:08→13:35)
[2018-08-26] MEDS: FUROSEMIDE 40 MG TAB PO SCH (10:08)
[2018-08-26] MEDS: GABAPENTIN 300 MG CAP PO SCH (10:09)
[2018-08-26] MEDS: FERROUS SULFATE 140 MG TAB.ER PO SCH (10:09)
[2018-08-26] MEDS: CLOPIDOGREL BISULFATE 75 MG TAB PO SCH (10:09)
[2018-08-26] MEDS: FAMOTIDINE 20 MG TAB PO SCH (10:09)
[2018-08-26] MEDS: MEMANTINE HCL 5 MG TAB PO SCH (10:09)
[2018-08-26] MEDS: METOPROLOL TARTRATE 50 MG TAB PO SCH (10:09)
[2018-08-26 12:16] VITALS: BP 115/55
--- NOTE | 2018-08-26 12:33 | PDIAF ---
- Diagnosis Diagnosis: aortic stenosis, pulmonary htn. Code Status: Full Code - Medication Management Discharge Medications: Medications to Continue on Transfer Clopidogrel Bisulfate [Plavix (*)] 75 mg PO DAILY 06/25/13 [Last Taken 08/23/18] Ranitidine HCl [Ranitidine HCl 150 mg] 150 mg PO BID 06/25/13 [Last Taken 09:00] Donepezil HCl [Aricept 5 MG (*)] 10 mg PO HS 05/10/17 [Last Taken 08/22/18] Fenofibrate [Tricor 145 mg (*)] 145 mg PO DAILY 07/31/17 [Last Taken 08/23/18] Gabapentin [Neurontin 300 MG (*)] 300 mg PO BID 07/31/17 [Last Taken 08/23/18 09 :00] Atorvastatin Calcium [Lipitor 40 mg (*)] 80 mg PO HS 10/11/17 [Last Taken ] Ferrous Sulfate [Slow Fe 140 MG (*)] 140 mg PO DAILY 10/11/17 [Last Taken ] Memantine HCl [Namenda 5 mg (*)] 5 mg PO BID 12/29/17 [Last Taken 08/23/18 09:00 ] traZODone [traZODONE 50MG (*)] 50 mg PO HS 12/29/17 [Last Taken 08/22/18] Warfarin Sodium [Coumadin 2.5MG (*)] 2.5 mg PO DAILY tab 12/31/17 [Last Taken 08/22/18] Furosemide 20 mg PO DAILY@12 08/23/18 [Last Taken 08/23/18 12:00] Furosemide 40 mg PO DAILY 08/23/18 [Last Taken 08/23/18] Metoprolol Tartrate [Lopressor 50 mg (*)] 50 mg PO BID 08/23/18 [Last Taken 09:00] Sildenafil Citrate [Revatio 20 MG (*)] 10 mg PO TIDMEAL 08/23/18 [Last Taken 09:00] Discharge Medications: Refer to the Discharge Home Medication list for PRN reason. - Orders Services needed: Registered Nurse, Master Moisture Meter Operator (Home hospice) Isolation Type: None Diet Recommendation: no restrictions on diet Diet Texture: Regular Texture Diet - Follow Up Care Current Providers and Referrals: Patient,NotPresent [Unknown] - As per Instructions
--- NOTE | 2018-08-26 12:55 | GDS ---
DISCHARGE DIAGNOSES: 1. Syncope, unclear etiology. 2. Severe pulmonary hypertension. 3. Severe aortic stenosis. 4. Pancytopenia concerning for myelodysplastic syndrome. 5. Coronary artery disease. 6. Systemic hypertension. 7. Acute respiratory failure, resolved. CONSULTATIONS: Dr. Trey Ramirez. PROCEDURES DONE: Chest and thoracic CT angiogram and echocardiogram. HOSPITAL COURSE: Mr. Israel is an 82-year-old man with a history of severe aortic stenosis, status p ost valvuloplasty. He also has severe pulmonary hypertension and dementia. He came in [place]. Since arriving in the hospital, he is back to baseline, feeling good and want s to go home. However, evaluation included the above procedures, which revealed worsening aortic guille nosis. It is unclear if the aortic stenosis or pulmonary hypertension contributed to his syncope or not. However, regardless, he has a limited life span due to these medical issues. He met with [facility] after talking with Dr. Ramirez, and the agreement now is to go home with hospice. At this time, we will continue his usual medications since he is stable. They can wean them off in the outpatient se tting. CONDITION ON DISCHARGE: Fair. DISCHARGE MEDICATIONS: Please see discharge medication form. FOLLOW-UP: He will go home with hospice. Total time spent with patient on day of discharge and coordination of care is 35 minutes. /[id number]/MODL
[2018-08-26] MEDS: WARFARIN SODIUM 2.5 MG TAB PO SCH (13:32)
[2018-08-26] MEDS: FUROSEMIDE 20 MG TAB PO SCH (13:33)
--- NOTE | 2018-08-26 15:01 | ASMTLACE ---
LACE Length of stay for Answers: 1 day current admission Acuity / Level of Answers: Yes Care: Did the patient have an inpatient admission? Comorbidities - select Answers: Coronary Artery Disease all that apply Dementia Other Notes: HTN # of Emergency department Answers: 1-2 visits in the last 6 months Score: 11 Date Signed: 08/26/2018 02:59 PM Electronically Signed By:Amelia Steel RN
--- NOTE | 2018-08-26 15:08 | ASMTDCNOTE ---
Case Management Discharge Discharge Order Complete? Answers: Yes Patient to Obtain Answers: via Family Medications Transportation Arranged Answers: Family/Friends Faxed Final Orders Answers: Yes Notes: to [facility] hospice Agency/Facility Transfer Answers: Yes Notes: to [facility] hospice Report Printed & Faxed to Receiving Agency Family Notified Answers: Yes Notes: in room Discharge Comments Notes: 08/26/2018 Case Management Note Pt discharged home with Hospice. Stephanie from [facility] arranged for equipment delivery to the home. Faxed final orders to [facility]. Cancelled [facility]. and daughters transported home. Case Management d/c poc: home with [facility]ospice. Date Signed: 08/26/2018 03:07 PM Electronically Signed By:Amelia Steel RN
--- NOTE | 2018-08-26 15:08 | ASDISCHSUM ---
Discharge Information Plan Status:Hospice-Home Medically Cleared to Leave:08/26/2018 Discharge Date:08/26/2018 03:05 PM D/C Disposition:Hospice Home ADT D/C Disposition:Hospice Home Projected Discharge Date:08/26/2018 11:00 AM Transportation at D/C:Family Discharge Delay Reason: Follow-Up Date:08/26/2018 11:00 AM Discharge Slot: Final Diagnosis: Placement Information Referral Type:*Home Health Care Services Referral ID:[id number] Provider Name: Address 1: Phone Number: Address 2: Fax Number: City: Selection Factors: State: Referral Type:*Hospice Referral ID:[id number] Provider Name:[facility] Address 1:[address] Phone Number: Address 2: Fax Number: [facility]:[place] Selection Factors: State:[place] Patient Contact Information Contact Name:MARYFAHAD Relationship: Address:[address] [facility] City:[place] Alternate Phone: State/Zip Code:[place] [phone] Email: Financial Information Financial Class:Medicare Primary Plan Desc:MEDICARE INPATIENT Primary Plan Number:[id number] Secondary Plan Desc:[facility] Secondary Plan Number:[id number] Assessment Information LACE LACE Length of stay for Answers: 1 day current admission Acuity / Level of Answers: Yes Care: Did the patient have an inpatient admission? Comorbidities - select Answers: Coronary Artery Disease all that apply Dementia Other Notes: HTN # of Emergency department Answers: 1-2 visits in the last 6 months Score: 11 Date Signed: 08/26/2018 02:59 PM Electronically Signed By:Amelia Steel RN [facility] CM Progress Note CM Note CM Note Notes: Reviewed pt in rounds, he was brought to ER by EMS after syncopal episode in [facility]. He had dementia and lives at home with his . Per pt's they just finished with [facility], PT recommending to continue with home PT, CM will send referral. DC Plan: Home Care Date Signed: 08/24/2018 01:48 PM Electronically Signed By:Alma Em RN [facility] CM Progress Note CM Note CM Note Notes: 08/25/2018 Case Management Note Met w/pt, Carmen [phone] and Daughter Laney [phone] to discuss hospice recommendation. Discussed agency options, family chose [facility] as they are considering palliative initially with home care and then shifting to hospice. Faxed referral to [facility]. Brown to meet with family at 10 am on SaturdayAug.26 here at [facility]. Case Management d/c poc: to be determined Case management to follow Date Signed: 08/25/2018 03:27 PM Electronically Signed By:Amelia Steel RN Case Management Discharge Plan Note Case Management Discharge Discharge Order Complete? Answers: Yes Patient to Obtain Answers: via Family Medications Transportation Arranged Answers: Family/Friends Faxed Final Orders Answers: Yes Notes: to [facility] Agency/Facility Transfer Answers: Yes Notes: to [facility] Report Printed & Faxed to Receiving Agency Family Notified Answers: Yes Notes: in room Discharge Comments Notes: 08/26/2018 Case Management Note Pt discharged home with Hospice. Stephanie from [facility] arranged for equipment delivery to the home. Faxed final orders to [facility]. Cancelled [facility]. and daughters transported home. Case Management d/c poc: home with [facility]. Date Signed: 08/26/2018 03:07 PM Electronically Signed By:Amelia Steel RN Intervention Information
--- NOTE | 2018-08-26 16:20 | SOAPPROG ---
SOAP Progress Note Assessment/Plan: Care plan - patient has severe aortic stenosis, severe pulmonary hypertension, and significant dementia. He is not a good candidate TAVR given peripheral vascular disease and dementia. He is not a good candidate for surgery for the same reason as well as multiple comorbid conditions. There are no obvious reversible causes for his severe pulmonary hypertension. His life expectancy is reduced given these conditions. He and his family met with hospice today and feels this is a good plan. Will plan on turning off ICD functionality of his pacemaker/ICD prior to going home. Greater than 50% of this 15 min visit was spent discussing end of life issues. Subjective: No chest pain No syncope No breathing problems. Objective: Vital Signs Temp Pulse Resp BP Pulse Ox 36.4 C 53 L 16 115/55 L 95 08/26/18 12:13 08/26/18 12:13 08/26/18 12:13 08/26/18 12:13 08/26/18 12:13 08/25/18 08/26/18 08/27/18 05:59 05:59 05:59 Intake Total 650 700 480 Balance 650 700 480 PT 30.0 SEC (12.0-15.0) H 08/26/18 03:14 INR 2.87 (0.83-1.16) H 08/26/18 03:14 Physical Exam - Physical Exam General Appearance: alert, no apparent distress Respiratory: lungs clear Cardiac/Chest: systolic murmur, irregularly irregular Extremities: pedal edema Neuro/Psych: alert, No oriented x 3 ICD10 Worksheet Patient Problems: Problems Problem Status Onset Acute ischemic stroke Acute Atrial fibrillation Acute Closed C2 fracture Acute Forehead laceration Acute Occlusion of left internal carotid artery Acute PVD (peripheral vascular disease) Acute Syncope Acute Ventricular tachycardia Acute
[2018-08-26 23:27] LABS: HEPATITIS B SURFACE ANTIGEN NEGATIVE (NEGATIVE)
[2018-08-26 23:40] LABS: HEPATITIS B CORE AB TOTAL NEGATIVE (NEGATIVE); HEPATITIS C ANTIBODY TOTAL NEGATIVE (NEGATIVE); HIV TYPE 1 AND 2 NEGATIVE (NEGATIVE)
== END 2018-08-26 15:05 | disposition hospice, home (50) | DRG 306 ==
LOC: EDBD → EDUNIT# → F2W 21:41 → OBSVTOIN 08-24 15:35
PROVIDERS: ADMIT Internal Medicine; ATTEND Internal Medicine
DX: I35.0 Nonrheumatic aortic (valve) stenosis (principal); J96.00 Acute respiratory failure, unspecified whether with hypoxia or hypercapnia; I27.29 Other secondary pulmonary hypertension; D46.9 Myelodysplastic syndrome, unspecified; I16.0 Hypertensive urgency; I48.2 Chronic atrial fibrillation; I73.9 Peripheral vascular disease, unspecified; F01.50 Vascular dementia, unspecified severity, without behavioral disturbance, psychotic disturbance, mood disturbance, and anxiety; Z23 Encounter for immunization; Z95.810 Presence of automatic (implantable) cardiac defibrillator
CPT/HCPCS: 82607-90; 83921-90; 84484-PO; 86334-90; 86704-90; 97116-GP; 97161-GP; 97165-GO; 97535-GO; G0008; G0009; G0378; G0472; G8978-GP-CJ; G8979-GP-CI; G8987-GO-CI; G8988-GO-CI; J0360; Q9967